=== PATIENT | male | born 1985 | race Caucasian/White ===

== ENCOUNTER 2016-07-05 17:10 | Emergency (ER) | payer OTHER ==
[2016-07-05] MEDS ORDERED: IBUPROFEN 800 MG TAB As Ordered ONE (18:52)
[2016-07-05] MEDS ORDERED: METHOCARBAMOL 500 MG TAB As Ordered ONE (18:52)
--- NOTE | 2016-07-05 19:04 | EDDOCDS ---
Physician Documentation [facility] Name: Obdulio Young Age: 31 yrs Sex: Male : 1985 Arrival Date: 07/05/2016 Time: 17:10 Bed Triage 2 Private MD: TERESA, Disposition: 07/05/16 18:51 Discharged to Home/Self Care. Impression: Strain of muscle, fascia and tendon of abdomen, lower back and pelvis. - Condition is Stable. - Discharge Instructions: Back Pain, Adult, Muscle Strain. - Prescriptions for Ibuprofen 600 mg Oral Tablet - take 1 tablet by ORAL route every 6 hours As needed take with food; 30 tablet. Robaxin 500 mg Oral Tablet - take 2 tablet by ORAL route every 6 hours As needed; 40 tablet. - Work Release Form - 2 day, Medication Reconciliation, Local Pharmacy Hours form. - Follow up: TERESA; When: Call to arrange an appointment; Reason: Recheck today's complaints, Continuance of care. - Problem is an acute exacerbation. - Symptoms are unchanged. Historical: - Allergies: no known allergies; - Home Meds: 1. trazodone 50 mg Oral tab as needed 2. Prozac 60mg Oral tab 1 cap once daily 3. BuSpar Oral 10 mg three times a day 4. acamprosate 333 mg oral TbEC 2 tabs 3 times per day - PMHx: Depression; Anxiety; Alcoholism; - PSHx: none; - Social history: Smoking status: Patient uses tobacco products, current every day smoker. No barriers to communication noted, The patient speaks fluent Slovenian, Speaks appropriately for age. - Family history: Not pertinent. - : The pt / caregiver states he / she is not on anticoagulants. Home medication list is obtained from the patient, [employer] import data. - Exposure Risk Screening:: None identified. Vital Signs: 07/05 17:11 BP 145 / 78; Pulse 86; Resp 18; Temp 97.9(O); Pulse Ox 100% ; Weight 63.5 kg / 139.99 cmb lbs; Height 5 ft. 10 in. (177.80 cm); Pain 6/10; 18:56 BP 125 / 74; Pulse 68; Resp 18; Temp 98.6; Pulse Ox 98% ; Pain 6/10; ttb 17:11 Body Mass Index 20.09 (63.50 kg, 177.80 cm) cmb MDM: 18:47 Methocarbamol 1 grams PO once ordered. mo1 18:47 Ibuprofen 800 mg PO once ordered. mo1 Administered Medications: 18:55 Drug: Methocarbamol 1 grams [methocarbamol 500 mg tablet (2 tabs)] Route: PO; ead 19:02 Follow up: Response: Confirmed pt not driving.; No Adverse Reaction; No significant ttb change. 18:55 Drug: Ibuprofen 800 mg [ibuprofen 800 mg tablet (1 tabs)] Route: PO; ead Signatures: Sarah Boone, RN RN ttb Marcello Isbell PA PA mo1 Judith DenisRN RN ead MTDD
--- NOTE | 2016-07-05 19:04 | EDDOCDS ---
Nurse's Notes [facility] Name: Obdulio Young Age: 31 yrs Sex: Male : 1985 Arrival Date: 07/05/2016 Time: 17:10 Bed Triage 2 Private MD: TERESA, Diagnosis: Strain of muscle, fascia and tendon of abdomen, lower back and pelvis Presentation: 07/05 17:14 Presenting complaint: Patient states: pt c/o lower back pain, onset yesterday. denies ead known injury. reports hx of similar episode. Acute neurological deficits are not present. Mechanism of Injury: No Mechanism of Injury. Adult Sepsis Screening: The patient does not have new or worsening altered mentation. Patient's respiratory rate is less than 22. Systolic blood pressure is greater than 100. Patient has a qSOFA score of 0- Negative Sepsis Screen. Suicide/Homicide risk assessment- the patient denies having any suicidal and/or homicidal ideations and does not present with any other emotional, behavioral or mental health complaints. Status: Patient is not a account services manager or dependent. Transition of care: patient was not received from another setting of care. 17:14 Acuity: SANJAY Level 4 ead 17:14 Method Of Arrival: Walkin/Carried/Asstd ead Triage Assessment: 17:16 General: Appears in no apparent distress, uncomfortable, Behavior is cooperative. Pain: ead Location: left low back and right low back Pain currently is 6 out of 10 on a pain scale. Pain: Pain began 1 day ago. Pain: Quality of pain is described as aching. HIV screening NA for this visit Offered previously. Neurological: Level of Consciousness is awake, alert, Oriented to person, place, time. Respiratory: Airway is patent Respiratory effort is even, unlabored. Derm: Skin is pink, warm & dry. Musculoskeletal: Reports pain in left low back and right low back. Historical: - Allergies: no known allergies; - Home Meds: 1. trazodone 50 mg Oral tab as needed 2. Prozac 60mg Oral tab 1 cap once daily 3. BuSpar Oral 10 mg three times a day 4. acamprosate 333 mg oral TbEC 2 tabs 3 times per day - PMHx: Depression; Anxiety; Alcoholism; - PSHx: none; - Social history: Smoking status: Patient uses tobacco products, current every day smoker. No barriers to communication noted, The patient speaks fluent Tajik, Speaks appropriately for age. - Family history: Not pertinent. - : The pt / caregiver states he / she is not on anticoagulants. Home medication list is obtained from the patient, [employer] import data. - Exposure Risk Screening:: None identified. Screenin:59 Screening information is obtained from the patient. Fall risk: No risks identified. ttb Assistance ADL's: requires no assistance with activities of daily living. Abuse/DV Screen: The patient / caregiver reports he/she is: not in a situation that causes fear, pain or injury. Nutritional screening: No deficits noted. Advance Directives: Currently, there is no health care proxy. home support is adequate. Assessment: 18:59 General: Appears in no apparent distress, well nourished, well groomed, Behavior is ttb appropriate for age, cooperative, pleasant. Pain: Location: lower back. Neurological: Level of Consciousness is awake, alert, Denies weakness numbness. Cardiovascular: Chest pain is denied. Respiratory: No deficits noted. Airway is patent Denies cough, shortness of breath. GI: Denies nausea, vomiting, pain. Derm: Skin is normal. Musculoskeletal: Range of motion intact in all extremities. Reports pain in lower back. Vital Signs: 17:11 BP 145 / 78; Pulse 86; Resp 18; Temp 97.9(O); Pulse Ox 100% ; Weight 63.5 kg; Height 5 cmb ft. 10 in. (177.80 cm); Pain 6/10; 18:56 BP 125 / 74; Pulse 68; Resp 18; Temp 98.6; Pulse Ox 98% ; Pain 6/10; ttb 17:11 Body Mass Index 20.09 (63.50 kg, 177.80 cm) cmb Vitals: 17:11 Log In Time: July 05, 2016 at 17:10. cmb ED Course: 17:10 Patient visited by Amalia Vasquez. cmb 17:10 Patient moved to Waiting cmb 17:13 MOORE is Private Physician. cmb 17:13 Patient moved to Pre RCE cmb 17:15 Triage Initiated ead 18:31 Patient moved to Triage 2 ead 18:32 Marcello Isbell PA is PHCP. mo1 18:32 Liss Prieto MD is Attending Physician. mo1 18:32 Patient moved to TR3 cmb 18:33 Patient moved to Triage 2 ead 18:44 Patient visited by Marcello Isbell PA. mo1 18:51 TERESA is Referral Physician. mo1 18:59 The patient / caregiver is instructed regarding the plan of care and ED course. Patient ttb has correct armband on for positive identification. 18:59 No IV's were initiated during this patient's visit. No procedures done that require ttb assistance. Administered Medications: 18:55 Drug: Methocarbamol 1 grams [methocarbamol 500 mg tablet (2 tabs)] Route: PO; ead 19:02 Follow up: Response: Confirmed pt not driving.; No Adverse Reaction; No significant ttb change. 18:55 Drug: Ibuprofen 800 mg [ibuprofen 800 mg tablet (1 tabs)] Route: PO; ead Order Results: There are currently no results for this order. Outcome: 18:51 Discharge ordered by Provider. mo1 18:59 Discharge Assessment: Patient awake, alert and oriented x 3. No cognitive and/or ttb functional deficits noted. Patient verbalized understanding of disposition instructions. Patient awake and alert. patient administered narcotics - yes. Pt provided with safe discharge. The following High Risk Discharge criteria are identified: None. Discharged to home ambulatory. Condition: good Condition: stable Condition: improved. Discharge instructions given to patient, Instructed on discharge instructions, follow up and referral plans. medication usage, no driving heavy equipment, Rest, Ice, Compression and Elevation. no drinking with medication, Demonstrated understanding of instructions, medications, no d/d with meds Pt was receptive of discharge instructions/ teaching. Prescriptions given X 2. No special radiology studies were completed. Property :Personal belongings accompany Pt. 19:02 Patient left the ED. ttb Signatures: Amalia Vasquez cmb Sarah Boone RN RN ttb Marcello Isbell PA PA mo1 Judith Denis RN RN ead MTDD
--- NOTE | 2016-07-07 20:03 | EDDOCDS ---
Physician Documentation [facility] Name: Obdulio Young Age: 31 yrs Sex: Male : 1985 Arrival Date: 07/05/2016 Time: 17:10 Bed Triage 2 Private MD: TERESA, Disposition: 07/05/16 18:51 Discharged to Home/Self Care. Impression: Strain of muscle, fascia and tendon of abdomen, lower back and pelvis. - Condition is Stable. - Discharge Instructions: Back Pain, Adult, Muscle Strain. - Prescriptions for Ibuprofen 600 mg Oral Tablet - take 1 tablet by ORAL route every 6 hours As needed take with food; 30 tablet. Robaxin 500 mg Oral Tablet - take 2 tablet by ORAL route every 6 hours As needed; 40 tablet. - Work Release Form - 2 day, Medication Reconciliation, Local Pharmacy Hours form. - Follow up: TERESA; When: Call to arrange an appointment; Reason: Recheck today's complaints, Continuance of care. - Problem is an acute exacerbation. - Symptoms are unchanged. Historical: - Allergies: no known allergies; - Home Meds: 1. trazodone 50 mg Oral tab as needed 2. Prozac 60mg Oral tab 1 cap once daily 3. BuSpar Oral 10 mg three times a day 4. acamprosate 333 mg oral TbEC 2 tabs 3 times per day - PMHx: Depression; Anxiety; Alcoholism; - PSHx: none; - Social history: Smoking status: Patient uses tobacco products, current every day smoker. No barriers to communication noted, The patient speaks fluent Irish, Speaks appropriately for age. - Family history: Not pertinent. - : The pt / caregiver states he / she is not on anticoagulants. Home medication list is obtained from the patient, [email or web address] import data. - Exposure Risk Screening:: None identified. Vital Signs: 07/05 17:11 BP 145 / 78; Pulse 86; Resp 18; Temp 97.9(O); Pulse Ox 100% ; Weight 63.5 kg / 139.99 cmb lbs; Height 5 ft. 10 in. (177.80 cm); Pain 6/10; 18:56 BP 125 / 74; Pulse 68; Resp 18; Temp 98.6; Pulse Ox 98% ; Pain 6/10; ttb 17:11 Body Mass Index 20.09 (63.50 kg, 177.80 cm) cmb MDM: 18:47 Methocarbamol 1 grams PO once ordered. mo1 18:47 Ibuprofen 800 mg PO once ordered. mo1 19:12 Financial registration complete. [facility] 19:13 [facility] Payment Agreement was scanned into [employer] and attached to record. [facility] 07/07 08:48 T-Sheet-- Draft Copy was scanned into [employer] and attached to record. gb Administered Medications: 07/05 18:55 Drug: Methocarbamol 1 grams [methocarbamol 500 mg tablet (2 tabs)] Route: PO; ead 19:02 Follow up: Response: Confirmed pt not driving.; No Adverse Reaction; No significant ttb change. 18:55 Drug: Ibuprofen 800 mg [ibuprofen 800 mg tablet (1 tabs)] Route: PO; ead Signatures: Sierra Castillo, Reg Reg gb Blas Carlos Teresa, RN RN ttb Marcello Isbell PA PA mo1 Judith DenisRN RN ead The chart was reviewed and I authenticate all verbal orders and agree with the evaluation and treatment provided.Attachments: 19:13 [facility] Payment Agreement [facility] 07/07 08:48 T-Sheet-- Draft Copy gb Chart Complete MTDD
--- NOTE | 2016-07-07 20:03 | EDDOCDS ---
Nurse's Notes [facility] Name: Obdulio Young Age: 31 yrs Sex: Male : 1985 Arrival Date: 07/05/2016 Time: 17:10 Bed Triage 2 Private MD: TERESA, Diagnosis: Strain of muscle, fascia and tendon of abdomen, lower back and pelvis Presentation: 07/05 17:14 Presenting complaint: Patient states: pt c/o lower back pain, onset yesterday. denies ead known injury. reports hx of similar episode. Acute neurological deficits are not present. Mechanism of Injury: No Mechanism of Injury. Adult Sepsis Screening: The patient does not have new or worsening altered mentation. Patient's respiratory rate is less than 22. Systolic blood pressure is greater than 100. Patient has a qSOFA score of 0- Negative Sepsis Screen. Suicide/Homicide risk assessment- the patient denies having any suicidal and/or homicidal ideations and does not present with any other emotional, behavioral or mental health complaints. Status: Patient is not a business services manager or dependent. Transition of care: patient was not received from another setting of care. 17:14 Acuity: SANJAY Level 4 ead 17:14 Method Of Arrival: Walkin/Carried/Asstd ead Triage Assessment: 17:16 General: Appears in no apparent distress, uncomfortable, Behavior is cooperative. Pain: ead Location: left low back and right low back Pain currently is 6 out of 10 on a pain scale. Pain: Pain began 1 day ago. Pain: Quality of pain is described as aching. HIV screening NA for this visit Offered previously. Neurological: Level of Consciousness is awake, alert, Oriented to person, place, time. Respiratory: Airway is patent Respiratory effort is even, unlabored. Derm: Skin is pink, warm & dry. Musculoskeletal: Reports pain in left low back and right low back. Historical: - Allergies: no known allergies; - Home Meds: 1. trazodone 50 mg Oral tab as needed 2. Prozac 60mg Oral tab 1 cap once daily 3. BuSpar Oral 10 mg three times a day 4. acamprosate 333 mg oral TbEC 2 tabs 3 times per day - PMHx: Depression; Anxiety; Alcoholism; - PSHx: none; - Social history: Smoking status: Patient uses tobacco products, current every day smoker. No barriers to communication noted, The patient speaks fluent Macedonian, Speaks appropriately for age. - Family history: Not pertinent. - : The pt / caregiver states he / she is not on anticoagulants. Home medication list is obtained from the patient, [employer] import data. - Exposure Risk Screening:: None identified. Screenin:59 Screening information is obtained from the patient. Fall risk: No risks identified. ttb Assistance ADL's: requires no assistance with activities of daily living. Abuse/DV Screen: The patient / caregiver reports he/she is: not in a situation that causes fear, pain or injury. Nutritional screening: No deficits noted. Advance Directives: Currently, there is no health care proxy. home support is adequate. Assessment: 18:59 General: Appears in no apparent distress, well nourished, well groomed, Behavior is ttb appropriate for age, cooperative, pleasant. Pain: Location: lower back. Neurological: Level of Consciousness is awake, alert, Denies weakness numbness. Cardiovascular: Chest pain is denied. Respiratory: No deficits noted. Airway is patent Denies cough, shortness of breath. GI: Denies nausea, vomiting, pain. Derm: Skin is normal. Musculoskeletal: Range of motion intact in all extremities. Reports pain in lower back. Vital Signs: 17:11 BP 145 / 78; Pulse 86; Resp 18; Temp 97.9(O); Pulse Ox 100% ; Weight 63.5 kg; Height 5 cmb ft. 10 in. (177.80 cm); Pain 6/10; 18:56 BP 125 / 74; Pulse 68; Resp 18; Temp 98.6; Pulse Ox 98% ; Pain 6/10; ttb 17:11 Body Mass Index 20.09 (63.50 kg, 177.80 cm) cmb Vitals: 17:11 Log In Time: July 05, 2016 at 17:10. cmb ED Course: 17:10 Patient visited by Amalia Vasquez. cmb 17:10 Patient moved to Waiting cmb 17:13 MOORE is Private Physician. cmb 17:13 Patient moved to Pre RCE cmb 17:15 Triage Initiated ead 18:31 Patient moved to Triage 2 ead 18:32 Marcello Isbell PA is PHCP. mo1 18:32 Liss Prieto MD is Attending Physician. mo1 18:32 Patient moved to TR3 cmb 18:33 Patient moved to Triage 2 ead 18:44 Patient visited by Marcello Isbell PA. mo1 18:51 TERESA is Referral Physician. mo1 18:59 The patient / caregiver is instructed regarding the plan of care and ED course. Patient ttb has correct armband on for positive identification. 18:59 No IV's were initiated during this patient's visit. No procedures done that require ttb assistance. 19:13 [facility] Payment Agreement was scanned into [employer] and attached to record. [facility] 07/07 08:48 T-Sheet-- Draft Copy was scanned into [employer] and attached to record. gb Administered Medications: 07/05 18:55 Drug: Methocarbamol 1 grams [methocarbamol 500 mg tablet (2 tabs)] Route: PO; ead 19:02 Follow up: Response: Confirmed pt not driving.; No Adverse Reaction; No significant ttb change. 18:55 Drug: Ibuprofen 800 mg [ibuprofen 800 mg tablet (1 tabs)] Route: PO; ead Order Results: There are currently no results for this order. Outcome: 18:51 Discharge ordered by Provider. mo1 18:59 Discharge Assessment: Patient awake, alert and oriented x 3. No cognitive and/or ttb functional deficits noted. Patient verbalized understanding of disposition instructions. Patient awake and alert. patient administered narcotics - yes. Pt provided with safe discharge. The following High Risk Discharge criteria are identified: None. Discharged to home ambulatory. Condition: good Condition: stable Condition: improved. Discharge instructions given to patient, Instructed on discharge instructions, follow up and referral plans. medication usage, no driving heavy equipment, Rest, Ice, Compression and Elevation. no drinking with medication, Demonstrated understanding of instructions, medications, no d/d with meds Pt was receptive of discharge instructions/ teaching. Prescriptions given X 2. No special radiology studies were completed. Property :Personal belongings accompany Pt. 19:02 Patient left the ED. ttb Signatures: Sierra Castillo, Lawrence Reg Blsa [place] cmb Sarah Boone RN RN ttb Marcello Isbell PA PA mo1 Judith Denis RN RN ead Chart Complete MTDD
--- NOTE | 2016-07-07 20:03 | EDDOCDS ---
Physician Documentation [facility] Name: Obdulio Young Age: 31 yrs Sex: Male : 1985 Arrival Date: 07/05/2016 Time: 17:10 Bed Triage 2 Private MD: TERESA, Disposition: 07/05/16 18:51 Discharged to Home/Self Care. Impression: Strain of muscle, fascia and tendon of abdomen, lower back and pelvis. - Condition is Stable. - Discharge Instructions: Back Pain, Adult, Muscle Strain. - Prescriptions for Ibuprofen 600 mg Oral Tablet - take 1 tablet by ORAL route every 6 hours As needed take with food; 30 tablet. Robaxin 500 mg Oral Tablet - take 2 tablet by ORAL route every 6 hours As needed; 40 tablet. - Work Release Form - 2 day, Medication Reconciliation, Local Pharmacy Hours form. - Follow up: TERESA; When: Call to arrange an appointment; Reason: Recheck today's complaints, Continuance of care. - Problem is an acute exacerbation. - Symptoms are unchanged. Historical: - Allergies: no known allergies; - Home Meds: 1. trazodone 50 mg Oral tab as needed 2. Prozac 60mg Oral tab 1 cap once daily 3. BuSpar Oral 10 mg three times a day 4. acamprosate 333 mg oral TbEC 2 tabs 3 times per day - PMHx: Depression; Anxiety; Alcoholism; - PSHx: none; - Social history: Smoking status: Patient uses tobacco products, current every day smoker. No barriers to communication noted, The patient speaks fluent Vietnamese, Speaks appropriately for age. - Family history: Not pertinent. - : The pt / caregiver states he / she is not on anticoagulants. Home medication list is obtained from the patient, [employer] import data. - Exposure Risk Screening:: None identified. Vital Signs: 07/05 17:11 BP 145 / 78; Pulse 86; Resp 18; Temp 97.9(O); Pulse Ox 100% ; Weight 63.5 kg / 139.99 cmb lbs; Height 5 ft. 10 in. (177.80 cm); Pain 6/10; 18:56 BP 125 / 74; Pulse 68; Resp 18; Temp 98.6; Pulse Ox 98% ; Pain 6/10; ttb 17:11 Body Mass Index 20.09 (63.50 kg, 177.80 cm) cmb MDM: 18:47 Methocarbamol 1 grams PO once ordered. mo1 18:47 Ibuprofen 800 mg PO once ordered. mo1 19:12 Financial registration complete. [facility] 19:13 [facility] Payment Agreement was scanned into [employer] and attached to record. [facility] 07/07 08:48 T-Sheet-- Draft Copy was scanned into [employer] and attached to record. gb Administered Medications: 07/05 18:55 Drug: Methocarbamol 1 grams [methocarbamol 500 mg tablet (2 tabs)] Route: PO; ead 19:02 Follow up: Response: Confirmed pt not driving.; No Adverse Reaction; No significant ttb change. 18:55 Drug: Ibuprofen 800 mg [ibuprofen 800 mg tablet (1 tabs)] Route: PO; ead Signatures: Sierra Castillo, Reg Reg gb Blas Carlos Teresa, RN RN ttb Marcello Isbell PA PA mo1 Judith DenisRN RN ead The chart was reviewed and I authenticate all verbal orders and agree with the evaluation and treatment provided.Attachments: 19:13 [facility] Payment Agreement [facility] 07/07 08:48 T-Sheet-- Draft Copy gb Chart Complete MTDD
== END 2016-07-05 19:02 | disposition home or self-care (01) ==
LOC: M ED 17:10
DX: S29.012A Strain of muscle and tendon of back wall of thorax, initial encounter (principal); X58.XXXA Exposure to other specified factors, initial encounter; Y92.89 Other specified places as the place of occurrence of the external cause; Y93.89 Activity, other specified; Y99.8 Other external cause status; F32.9 Major depressive disorder, single episode, unspecified; F41.9 Anxiety disorder, unspecified; F10.20 Alcohol dependence, uncomplicated; F17.210 Nicotine dependence, cigarettes, uncomplicated; Z79.899 Other long term (current) drug therapy

== ENCOUNTER 2016-07-12 13:56 | Emergency (ER) | payer OTHER ==
--- NOTE | 2016-07-12 15:23 | EDDOCDS ---
Nurse's Notes [facility] Name: Obdulio Young Age: 31 yrs Sex: Male : 1985 Arrival Date: 07/12/2016 Time: 13:56 Bed [facility] Private MD: Rodolfo Cox D Diagnosis: Low back pain;Alcohol abuse Presentation: 07/12 14:15 Presenting complaint: Patient states: "I went to see my therapist and I went outside to mb9 smoke and he said I was intoxicated and that I was gonna fall down so he called the ambulance". pt reports hx of chronic alcoholism and that he has been drinking non stop since last Sunday. pt denies SI/HI. Mental Health Triage Level: Level 1- Pt displays no suicidal or homicidal ideations and does not appear to be a danger to self or others. Adult Sepsis Screening: The patient does not have new or worsening altered mentation. Patient's respiratory rate is less than 22. Systolic blood pressure is greater than 100. Patient has a qSOFA score of 0- Negative Sepsis Screen. Suicide/Homicide risk assessment- the patient denies having any suicidal and/or homicidal ideations and does not present with any other emotional, behavioral or mental health complaints. Status: Patient is not a food service clerk or dependent. Transition of care: patient was not received from another setting of care. 14:15 Acuity: SANJAY Level 3 mb9 14:15 Method Of Arrival: Ambulance mb9 Triage Assessment: 14:19 General: Appears pt appears to be unsteady on his feet and slurring his speech. pt mb9 repeatedly tries to leave. pt easily redirected. . Behavior is inappropriate for age, Smells of alcohol. Pain: Location: low back area Pain currently is 5 out of 10 on a pain scale. HIV screening NA for this visit Offered previously. Neurological: Level of Consciousness is awake, alert, Oriented to person, place, time. Respiratory: Airway is patent Respiratory effort is even, unlabored. Historical: - Allergies: No known drug Allergies; - Home Meds: 1. acamprosate 333 mg oral TbEC 2 tabs 3 times per day (Last dose: 07/05/2016) 2. BuSpar Oral 10 mg three times a day (Last dose: 07/05/2016) 3. Prozac 60mg Oral tab 1 cap once daily (Last dose: 07/05/2016) - PMHx: Alcoholism; Anxiety; Depression; - PSHx: none; - Social history: Smoking status: Patient uses tobacco products, heavy tobacco smoker. Patient uses alcohol on a daily basis. No barriers to communication noted, The patient speaks fluent Cameroonian. - Family history: No immediate family members are acutely ill. - : The pt / caregiver states he / she is not on anticoagulants. Home medication list is obtained from the patient. - Exposure Risk Screening:: None identified. Screenin:30 Screening information is obtained from the patient. Fall risk: At risk due to apparent mb9 chemical impairment, The following interventions are performed due to a positive Fall Risk Screen: Fall Risk is added to Special Handling on the patient Summary Screen. A Fall Risk Bracelet was applied to the patient. Side Rails are placed in the up position. A Call Bourne is given with instruction to call for help when getting out of bed. bed rails up x2.. Assistance ADL's: requires no assistance with activities of daily living. Abuse/DV Screen: The patient / caregiver reports he/she is: not in a situation that causes fear, pain or injury. Nutritional screening: No deficits noted. Advance Directives: There is no active DNR order. home support is adequate. Social Work Consult: 15:06 Cab voucher provided. Patient is going to safe destination. LWBS/AMA AMA: Patient is ms refusing further stabilizing treatment at [facility], although offered treatment regardless of method of payment or ability to pay. Patient is aware that this action is being undertaken against the advice of the medical staff at [facility]. Pt. has capacity to understand the potential consequences of this choice. pt did notify ED staff. Patient / guardian did sign Refusal of Services form. refused services. Vital Signs: 14:19 BP 128 / 98; Pulse 80; Resp 17; Temp 97.2(T); Pulse Ox 100% ; Weight 63.5 kg; Height 5 mb9 ft. 9 in. (175.26 cm); Pain 5/10; 14:19 Body Mass Index 20.67 (63.50 kg, 175.26 cm) mb9 Vitals: 14:19 Log In Time N/A - ambulance arrival. 9 ED Course: 13:58 Patient visited by Liss Meeks. sew 13:58 Rodolfo Cox is Private Physician. sew 13:58 Patient moved to Waiting sew 13:58 Patient moved to [facility] sew 14:06 Patient visited by Liss Meeks. sew 14:06 Psych Safety Check: Location: Psych Room. Visual Assessment: Cooperative. sew 14:17 Triage Initiated mb9 14:17 Psych Safety Check: Location: Psych Room. Visual Assessment: Cooperative. sew 14:18 Patient visited by Liss Meeks. sew 14:30 The patient / caregiver is instructed regarding the plan of care and ED course. mb9 14:30 No IV's were initiated during this patient's visit. No procedures done that require mb9 assistance. 14:46 Adán Gayle MD is Attending Physician. br1 15:03 Patient visited by Adán Gayle MD. br1 15:03 Rodolfo Cox is Referral Physician. br1 Order Results: There are currently no results for this order. Outcome: 15:03 Patient left against medical advice. br1 15:22 The patient is leaving AMA: AMA form signed, Notification of AMA status is made to the mb9 charge nurse, the oncology social work, the ED attending physician. 15:22 Patient left the ED. mb9 Signatures: Emily Robles, PSA PSA ms Adán Gayle MD MD br1 Liss Meeks Michael,RN RN mb9 MTDD
--- NOTE | 2016-07-12 15:23 | EDDOCDS ---
Physician Documentation [facility] Name: Obdulio Young Age: 31 yrs Sex: Male : 1985 Arrival Date: 07/12/2016 Time: 13:56 Bed [facility] Private MD: Rodolfo Cox D Disposition: 07/12/16 15:03 Patient has left against medical advice. Impression: Low back pain, Alcohol abuse. - Patients states they are going to Home/Self Care. - Condition is Stable. - Discharge Instructions: Alcohol Intoxication, Back Pain, Adult. Medication Reconciliation, Local Pharmacy Hours form. Follow up: Rodolfo Cox; When: 2 - 3 days; Reason: Recheck today's complaints. - Problem is new. - Symptoms are unchanged. - Notes: You were seen in the ED for back pain and alcohol abuse. Although recommended to stay for full evaluation with bloodwork and imaging you have refused and decided to leave against our advice. Please seek care with your primary doctor as soon as possible for ongoing evaluation and return to the ED at any time if your symptoms worsen or you change your mind. Historical: - Allergies: No known drug Allergies; - Home Meds: 1. acamprosate 333 mg oral TbEC 2 tabs 3 times per day (Last dose: 07/05/2016) 2. BuSpar Oral 10 mg three times a day (Last dose: 07/05/2016) 3. Prozac 60mg Oral tab 1 cap once daily (Last dose: 07/05/2016) - PMHx: Alcoholism; Anxiety; Depression; - PSHx: none; - Social history: Smoking status: Patient uses tobacco products, heavy tobacco smoker. Patient uses alcohol on a daily basis. No barriers to communication noted, The patient speaks fluent Arabic. - Family history: No immediate family members are acutely ill. - : The pt / caregiver states he / she is not on anticoagulants. Home medication list is obtained from the patient. - Exposure Risk Screening:: None identified. Vital Signs: 07/12 14:19 BP 128 / 98; Pulse 80; Resp 17; Temp 97.2(T); Pulse Ox 100% ; Weight 63.5 kg / 139.99 mb9 lbs; Height 5 ft. 9 in. (175.26 cm); Pain 5/10; 14:19 Body Mass Index 20.67 (63.50 kg, 175.26 cm) mb9 MDM: 15:03 Consult PFS/PSA/Crop Quantitative Geneticist ordered. br1 15:05 Consult PFS/PSA/Crop Quantitative Geneticist complete. ms 15:16 Financial registration complete. mm15 Signatures: Emily Robles, PSA PSA ms Adán Gayle MD MD br1 Samson Garcia mm15 Marcello Strickland,RN RN mb9 MTDD
--- NOTE | 2016-07-14 16:23 | EDDOCDS ---
Physician Documentation [facility] Name: Obdulio Young Age: 31 yrs Sex: Male : 1985 Arrival Date: 07/12/2016 Time: 13:56 Bed [facility] Private MD: Rodolfo Cox D Disposition: 07/12/16 15:03 Patient has left against medical advice. Impression: Low back pain, Alcohol abuse. - Patients states they are going to Home/Self Care. - Condition is Stable. - Discharge Instructions: Alcohol Intoxication, Back Pain, Adult. Medication Reconciliation, Local Pharmacy Hours form. Follow up: Rodolfo Cox; When: 2 - 3 days; Reason: Recheck today's complaints. - Problem is new. - Symptoms are unchanged. - Notes: You were seen in the ED for back pain and alcohol abuse. Although recommended to stay for full evaluation with bloodwork and imaging you have refused and decided to leave against our advice. Please seek care with your primary doctor as soon as possible for ongoing evaluation and return to the ED at any time if your symptoms worsen or you change your mind. Historical: - Allergies: No known drug Allergies; - Home Meds: 1. acamprosate 333 mg oral TbEC 2 tabs 3 times per day (Last dose: 07/05/2016) 2. BuSpar Oral 10 mg three times a day (Last dose: 07/05/2016) 3. Prozac 60mg Oral tab 1 cap once daily (Last dose: 07/05/2016) - PMHx: Alcoholism; Anxiety; Depression; - PSHx: none; - Social history: Smoking status: Patient uses tobacco products, heavy tobacco smoker. Patient uses alcohol on a daily basis. No barriers to communication noted, The patient speaks fluent Faroese. - Family history: No immediate family members are acutely ill. - : The pt / caregiver states he / she is not on anticoagulants. Home medication list is obtained from the patient. - Exposure Risk Screening:: None identified. Vital Signs: 07/12 14:19 BP 128 / 98; Pulse 80; Resp 17; Temp 97.2(T); Pulse Ox 100% ; Weight 63.5 kg / 139.99 mb9 lbs; Height 5 ft. 9 in. (175.26 cm); Pain 5/10; 14:19 Body Mass Index 20.67 (63.50 kg, 175.26 cm) mb9 MDM: 15:03 Consult PFS/PSA/Hospice/Home Health Aide ordered. br1 15:05 Consult PFS/PSA/Hospice/Home Health Aide complete. ms 15:16 Financial registration complete. mm15 07/13 07:54 [facility] Payment Agreement was scanned into [employer] and attached to record. lg 11:45 Refusal of Services was scanned into [employer] and attached to record. gb 11:45 T-Sheet-- Draft Copy was scanned into [employer] and attached to record. gb Signatures: Emily Robles, PSA PSA ms Anna, Sierra, Reg Reg gb Maisha Lane, Reg Reg lg Adán Gayle MD MD br1 Samson Garcia mm15 Marcello StricklandRN RN mb9 The chart was reviewed and I authenticate all verbal orders and agree with the evaluation and treatment provided.Attachments: 07:54 [facility] Payment Agreement lg 11:45 T-Sheet-- Draft Copy gb Chart Complete MTDD
--- NOTE | 2016-07-14 16:23 | EDDOCDS ---
Nurse's Notes [facility] Name: Obdulio Young Age: 31 yrs Sex: Male : 1985 Arrival Date: 07/12/2016 Time: 13:56 Bed [facility] Private MD: Rodolfo Cox D Diagnosis: Low back pain;Alcohol abuse Presentation: 07/12 14:15 Presenting complaint: Patient states: "I went to see my therapist and I went outside to mb9 smoke and he said I was intoxicated and that I was gonna fall down so he called the ambulance". pt reports hx of chronic alcoholism and that he has been drinking non stop since last Sunday. pt denies SI/HI. Mental Health Triage Level: Level 1- Pt displays no suicidal or homicidal ideations and does not appear to be a danger to self or others. Adult Sepsis Screening: The patient does not have new or worsening altered mentation. Patient's respiratory rate is less than 22. Systolic blood pressure is greater than 100. Patient has a qSOFA score of 0- Negative Sepsis Screen. Suicide/Homicide risk assessment- the patient denies having any suicidal and/or homicidal ideations and does not present with any other emotional, behavioral or mental health complaints. Status: Patient is not a service control operator or dependent. Transition of care: patient was not received from another setting of care. 14:15 Acuity: SANJAY Level 3 mb9 14:15 Method Of Arrival: Ambulance mb9 Triage Assessment: 14:19 General: Appears pt appears to be unsteady on his feet and slurring his speech. pt mb9 repeatedly tries to leave. pt easily redirected. . Behavior is inappropriate for age, Smells of alcohol. Pain: Location: low back area Pain currently is 5 out of 10 on a pain scale. HIV screening NA for this visit Offered previously. Neurological: Level of Consciousness is awake, alert, Oriented to person, place, time. Respiratory: Airway is patent Respiratory effort is even, unlabored. Historical: - Allergies: No known drug Allergies; - Home Meds: 1. acamprosate 333 mg oral TbEC 2 tabs 3 times per day (Last dose: 07/05/2016) 2. BuSpar Oral 10 mg three times a day (Last dose: 07/05/2016) 3. Prozac 60mg Oral tab 1 cap once daily (Last dose: 07/05/2016) - PMHx: Alcoholism; Anxiety; Depression; - PSHx: none; - Social history: Smoking status: Patient uses tobacco products, heavy tobacco smoker. Patient uses alcohol on a daily basis. No barriers to communication noted, The patient speaks fluent Egyptian. - Family history: No immediate family members are acutely ill. - : The pt / caregiver states he / she is not on anticoagulants. Home medication list is obtained from the patient. - Exposure Risk Screening:: None identified. Screenin:30 Screening information is obtained from the patient. Fall risk: At risk due to apparent mb9 chemical impairment, The following interventions are performed due to a positive Fall Risk Screen: Fall Risk is added to Special Handling on the patient Summary Screen. A Fall Risk Bracelet was applied to the patient. Side Rails are placed in the up position. A Call Bourne is given with instruction to call for help when getting out of bed. bed rails up x2.. Assistance ADL's: requires no assistance with activities of daily living. Abuse/DV Screen: The patient / caregiver reports he/she is: not in a situation that causes fear, pain or injury. Nutritional screening: No deficits noted. Advance Directives: There is no active DNR order. home support is adequate. Social Work Consult: 15:06 Cab voucher provided. Patient is going to safe destination. LWBS/AMA AMA: Patient is ms refusing further stabilizing treatment at [facility], although offered treatment regardless of method of payment or ability to pay. Patient is aware that this action is being undertaken against the advice of the medical staff at [facility]. Pt. has capacity to understand the potential consequences of this choice. pt did notify ED staff. Patient / guardian did sign Refusal of Services form. refused services. Vital Signs: 14:19 BP 128 / 98; Pulse 80; Resp 17; Temp 97.2(T); Pulse Ox 100% ; Weight 63.5 kg; Height 5 mb9 ft. 9 in. (175.26 cm); Pain 5/10; 14:19 Body Mass Index 20.67 (63.50 kg, 175.26 cm) mb9 Vitals: 14:19 Log In Time N/A - ambulance arrival. 9 ED Course: 13:58 Patient visited by Liss Meeks. sew 13:58 Rodolfo Cox is Private Physician. sew 13:58 Patient moved to Waiting sew 13:58 Patient moved to [facility] sew 14:06 Patient visited by Liss Meeks. sew 14:06 Psych Safety Check: Location: Psych Room. Visual Assessment: Cooperative. sew 14:17 Triage Initiated mb9 14:17 Psych Safety Check: Location: Psych Room. Visual Assessment: Cooperative. sew 14:18 Patient visited by Liss Meeks. sew 14:30 The patient / caregiver is instructed regarding the plan of care and ED course. mb9 14:30 No IV's were initiated during this patient's visit. No procedures done that require mb9 assistance. 14:46 Adán Gayle MD is Attending Physician. br1 15:03 Patient visited by Adán Gayle MD. br1 15:03 Rodolfo Cox is Referral Physician. br1 07/13 07:54 [facility] Payment Agreement was scanned into [employer] and attached to record. lg 11:45 Refusal of Services was scanned into [employer] and attached to record. gb 11:45 T-Sheet-- Draft Copy was scanned into [employer] and attached to record. gb Attachments: 11:45 Refusal of Services gb Order Results: There are currently no results for this order. Outcome: 07/12 15:03 Patient left against medical advice. br1 15:22 The patient is leaving AMA: AMA form signed, Notification of AMA status is made to the mb9 charge nurse, the social science teacher, the ED attending physician. 15:22 Patient left the ED. mb9 Signatures: Emily Robles, PSA PSA ms Sierra Castillo, Reg Reg gb Maisha Lane, Reg Reg lg Adán Gayle MD MD br1 Liss Meeks Michael,RN RN mb9 Chart Complete MTDD
--- NOTE | 2016-07-14 16:23 | EDDOCDS ---
Physician Documentation [facility] Name: Obdulio Young Age: 31 yrs Sex: Male : 1985 Arrival Date: 07/12/2016 Time: 13:56 Bed [facility] Private MD: Rodolfo Cox D Disposition: 07/12/16 15:03 Patient has left against medical advice. Impression: Low back pain, Alcohol abuse. - Patients states they are going to Home/Self Care. - Condition is Stable. - Discharge Instructions: Alcohol Intoxication, Back Pain, Adult. Medication Reconciliation, Local Pharmacy Hours form. Follow up: Rodolfo Cox; When: 2 - 3 days; Reason: Recheck today's complaints. - Problem is new. - Symptoms are unchanged. - Notes: You were seen in the ED for back pain and alcohol abuse. Although recommended to stay for full evaluation with bloodwork and imaging you have refused and decided to leave against our advice. Please seek care with your primary doctor as soon as possible for ongoing evaluation and return to the ED at any time if your symptoms worsen or you change your mind. Historical: - Allergies: No known drug Allergies; - Home Meds: 1. acamprosate 333 mg oral TbEC 2 tabs 3 times per day (Last dose: 07/05/2016) 2. BuSpar Oral 10 mg three times a day (Last dose: 07/05/2016) 3. Prozac 60mg Oral tab 1 cap once daily (Last dose: 07/05/2016) - PMHx: Alcoholism; Anxiety; Depression; - PSHx: none; - Social history: Smoking status: Patient uses tobacco products, heavy tobacco smoker. Patient uses alcohol on a daily basis. No barriers to communication noted, The patient speaks fluent Uzbek. - Family history: No immediate family members are acutely ill. - : The pt / caregiver states he / she is not on anticoagulants. Home medication list is obtained from the patient. - Exposure Risk Screening:: None identified. Vital Signs: 07/12 14:19 BP 128 / 98; Pulse 80; Resp 17; Temp 97.2(T); Pulse Ox 100% ; Weight 63.5 kg / 139.99 mb9 lbs; Height 5 ft. 9 in. (175.26 cm); Pain 5/10; 14:19 Body Mass Index 20.67 (63.50 kg, 175.26 cm) mb9 MDM: 15:03 Consult PFS/PSA/Security System Administrator ordered. br1 15:05 Consult PFS/PSA/Security System Administrator complete. ms 15:16 Financial registration complete. mm15 07/13 07:54 [facility] Payment Agreement was scanned into [employer] and attached to record. lg 11:45 Refusal of Services was scanned into [employer] and attached to record. gb 11:45 T-Sheet-- Draft Copy was scanned into [employer] and attached to record. gb Signatures: Emily Robles, PSA PSA ms Anna, Sierra, Reg Reg gb Maisha Lane, Reg Reg lg Adán Gayle MD MD br1 Samson Garcia mm15 Marcello StricklandRN RN mb9 The chart was reviewed and I authenticate all verbal orders and agree with the evaluation and treatment provided.Attachments: 07:54 [facility] Payment Agreement lg 11:45 T-Sheet-- Draft Copy gb Chart Complete MTDD
== END 2016-07-12 15:06 | disposition left against medical advice (07) ==
LOC: M ED 13:56
DX: M54.5 Low back pain (principal); F10.10 Alcohol abuse, uncomplicated; F41.9 Anxiety disorder, unspecified; F32.9 Major depressive disorder, single episode, unspecified; Z72.0 Tobacco use; Z79.899 Other long term (current) drug therapy

== ENCOUNTER 2016-07-17 10:00 | Outpatient (RCR) | payer OTHER | END 2016-08-01 | disposition home or self-care (01) | LOC: M OUTALCOH 10:00 | PROVIDERS: ATTEND Psychiatry & Neurology Psychiatry | DX: F10.20 Alcohol dependence, uncomplicated (principal); F18.20 Inhalant dependence, uncomplicated; F12.20 Cannabis dependence, uncomplicated; F17.200 Nicotine dependence, unspecified, uncomplicated ==

== ENCOUNTER → 2016-08-29 | Outpatient (RCR) | payer OTHER | LOC: M OUTALCOH 08-14 11:39 | PROVIDERS: ATTEND Psychiatry & Neurology Psychiatry | DX: F18.20 Inhalant dependence, uncomplicated (principal); F10.20 Alcohol dependence, uncomplicated; F12.20 Cannabis dependence, uncomplicated; F17.200 Nicotine dependence, unspecified, uncomplicated ==

== ENCOUNTER → 2017-03-23 | Outpatient (CLI) | payer OTHER ==
--- NOTE | 2017-03-23 12:07 | REP ---
Lumbar spine MRI study without contrast: History: Pain. Comparison lumbar spine radiographs are from January 07, 2016. Technique: Sagittal and axial T1 and T2-weighted scans are acquired in the usual fashion with and without fat saturation. Sequences include spin echo, turbo spin-echo, and STIR imaging sequences. MRI findings: Lumbar vertebral body heights are preserved. Alignment is normal. Cortical and medullary bone signal intensity are normal. Conus medullaris is normal in position and appearance at the L1 level. There is a hemangioma in the L3 vertebral body. There is degenerative disc narrowing and decreased signal intensity at the L5-S1 disc level. Other disc spaces are preserved. At L5-S1, axial and sagittal images demonstrate a large disc protrusion with some caudal extension producing severe thecal sac compression. This large disc protrusion measures 10 mm in anteroposterior dimension by approximately 15 mm right to left by 14 mm cranial to caudal. Sagittal images suggest the possibility of a free fragment although it is not displaced from the main protrusion. There is mild right-sided neural foraminal narrowing due to disc bulging and osteophyte formation. Bilateral facet hypertrophy is noted at L5-S1. At L4-5, there is minimal diffuse disc bulging. No other abnormality. At L3-4, L2-3, and L1-2, imaging shows no significant abnormality. Impression: Large disc herniation at L5-S1 with severe thecal sac compression. Possible free fragment not displaced. Signed by Horace Blevins MD 03/23/2017 03:20 P
== END ==
LOC: M RAD 10:19
PROVIDERS: ATTEND Family Medicine Addiction Medicine
DX: M54.5 Low back pain (principal)

== ENCOUNTER → 2017-04-18 | Outpatient (CLI) | payer OTHER ==
--- NOTE | 2017-05-16 02:30 | ECWPNPC ---
PATIENT NAME: MARTIR DUNCAN : 1985 GENDER: MALE VISIT DATE: 04/18/2017 DISCHARGE DATE: 04/18/17 1445 VISIT LOCKED DATE TIME: PHYSICIAN: PRAVEEN HERRERA RESOURCE: PRAVEEN HERRERA REASON FOR APPOINTMENT 1. LOW BACK PAIN HISTORY OF PRESENT ILLNESS NEW PATIENT CONSULT: 32 Y/O MALE REFERRED BY DR. MOORE,[facility] FOR LOW BACK PAIN AND LEFT LATERAL THIGH PAIN.STATES THIS BEGAN IN AUGUST 2015.HE WOKE UP AND BEGAN TO HAVE SEVERE LOW BACK PAIN.PAIN IS DESCRIBED INTERMITTENT ,SHARP AND SHOOTING PAIN LEFT LOW BACK WITH RADIATION INTO LEFT LATERAL THIGH.RATING PAIN VAS 3/10.PAIN IS AGGREVATED BY BENDING FORWARD,STRAINING WITH BOWEL MOVEMENT OR SNEEZING.CURRENTLY TAKING GABAPENTIN 300MG BID BUT THIS IS FOR ANXIETY.DENIES BOWEL OR BLADDER INCONTINENCE.NO RECENT FEVER ,ILLNESS OR SUDDEN WEIGHT LOSS.MRI IMAGING L/S SPINE IS SHOWING LARGE L5/S1 DISC HERNIATION WITH SEVERE INPINGMENT OF THECAL SAC. WHEN DID YOUR PAIN FIRST START? . BRIEFLY DESCRIBE HOW YOUR PAIN STARTED? . HOW DOES YOUR PAIN CHANGE WITH TIME? . DOES YOUR PAIN AWAKEN YOU FROM SLEEP? . HOW MANY HOURS OF SLEEP DO YOU NORMALLY GET? . ANY DIAGNOSTIC TESTING? . FACILITY WHERE TESTS WERE DONE? ____. PAIN TREATMENT TREATMENT YES CANCER HAVE YOU EVER HAD ANY TYPE OF CANCER?NO NO. PAIN SCREENING: PATIENT HAS A COMPLAINT OF ACUTE OR CHRONIC PAIN :YES FALL RISK SCREENING: SCREENING :NO FALLS IN THE PAST YEAR EPSTEIN INVENTORY: QUESTIONNAIRE ASSESSEDTBD SCORE VALUE CALCULATED TBD CURRENT MEDICATIONS TAKING PROZAC 40 MG CAPSULE 1 CAPSULE ORALLY ONCE A DAY TAKING GABAPENTIN 300 MG CAPSULE 1 CAPSULE ORALLY TWO TIMES A DAY TAKING ACAMPROSATE CALCIUM 333 MG TABLET DELAYED RELEASE 2 TABLETS ORALLY THREE TIMES A DAY TAKING HYDROXYZINE HCL 50 MG TABLET 1 TABLET NEEDED ORALLY 3 TIMES A DAY NEEDED MEDICATION LIST REVIEWED AND RECONCILED WITH THE PATIENT PAST MEDICAL HISTORY ASTHMA ANXIETY DISORDER/ DEPRESSION ALCOHOLISM BACK PAIN ALLERGIES N.K.D.A. SURGICAL HISTORY DENIES PAST SURGICAL HISTORY FAMILY HISTORY FATHER: , DIAGNOSED WITH HEART DISEASE MOTHER: ALIVE 1 BROTHER(S) , 1 SISTER(S) . SOCIAL HISTORY GENERAL: TOBACCO USE ARE YOU A:CURRENT SMOKER ARE YOU INTERESTED IN QUITTING?NOT READY TO QUIT COUNSELED THE PATIENT ON SMOKING EFFECTS, EDUCATION [id number]/18/2017 HOW MANY CIGARETTES A DAY DO YOU SMOKE?11-20 PATIENT COUNSELED ON THE DANGERS OF TOBACCO USE AND URGED TO QUIT:04/18/2017 ALCOHOL SCREENING [id number] INTERPRETATIONPOSITIVE RECREATIONAL DRUG USE DRUG USE?YES HOW OFTEN AND HOW MUCH? "SMOKES WEED ABOUT ONCE A MONTH" JUDAISM [id number] NONE LANGUAGE LANGUAGES SPOKEN:SINGAPOREAN LEARNING BARRIERS / SPECIAL NEEDS BARRIERS TO LEARNING?NO HEARING IMPAIRED?NO VISION IMPAIRED?NO COGNITIVELY IMPAIRED?NO READINESS TO LEARN?YES LEARNING PREFERENCES?NO LEARNING CAPABILITIES PRESENT?YES EMOTIONAL BARRIERS?NO SPECIAL DEVICES?NO MANAGER CHINESE NEEDED?NO PAIN CLINIC PFS, CLERGY, PUBLIC HEALTH REFERRALS PFS REFERRAL NEEDED?NO CLERGY REFERRAL NEEDED?NO PUBLIC HEALTH REFERRAL NEEDED?NO WAS THE PROVIDER NOTIFIED OF ANY PERTINENT INFO?NO HAS THE PATIENT BEEN EDUCATED REGARDING HIS/HER PLAN OF CARE?YES HAS THE PATIENT BEEN EDUCATED REGARDING PAIN, THE RISK FOR PAIN, THE IMPORTANCE OF EFFECTIVE PAIN MANAGEMENT, AND THE PAIN ASSESSMENT PROCESS?YES PATIENT: ____. ADVANCE DIRECTIVES HEALTH CARE PROXY?NO WOULD YOU LIKE MORE INFORMATION?NO DO YOU HAVE A DNR?NO WOULD YOU LIKE MORE INFORMATION?NO LIVING WILL?NO WOULD YOU LIKE MORE INFORMATION?NO POWER OF CENTRIFUGAL SUPERVISOR?NO WOULD YOU LIKE MORE INFORMATION?NO REVIEW OF SYSTEMS REVIEWED BY: PROVIDER: PRAVEEN YUN . CONSTITUTIONAL: ANY CHANGE IN YOUR MEDICAL CONDITION? NO . CHILLS NO . FEVER NO . INFECTION: DO YOU HAVE NEW INFECTIONS? NO . DO YOU HAVE HISTORY OF MRSA? NO . MUSCULOSKELETAL: ANY NEW PATTERNS OF PAIN OR NUMBNESS? NO . SYTEMIC LUPUS NO . GASTROENTEROLOGY: ANY NEW CHANGE IN BOWEL CONTROL? NO . BARRETTS ESOPHAGUS NO . CIRRHOSIS NO . HEPATITIS NO . LIVER FAILURE NO . ACID REFLUX NO . UNEXPLAINED WEIGHT LOSS NO . GENITOURINARY: ANY NEW CHANGE IN BLADDER CONTROL? NO . IS THERE A CHANCE YOU COULD BE ? NO . HEMATOLOGY/LYMPH: DO YOU TAKE ANY BLOOD THINNERS? (FOR EXAMPLE- COUMADIN, PLAVIX, AGGRENOX, PLATEL, PRADAXA, OR XARELTO) NO . WHEN WAS YOUR LAST DOSE? DATE: TIME: . LOW PLATELET COUNT NO . SICKLE CELL DISEASE NO . VON WILLIEBRANDS NO . FACTOR V LEIDEN NO . THALLASEMIA NO . ANEMIA NO . EASY BRUISING NO . NEUROLOGY: HAVE YOU FALLEN IN THE PAST 6 MONTHS? NO . ANY NEW EXTREMITY NUMBNESS OR WEAKNESS? NO . HEAD INJURY NO . DEMENTIA NO . CEREBRAL PALSY NO . MULTIPLE SCLEROSIS NO . DIZZINESS NO . HEADACHE NO . STROKES NO . VERTIGO NO . CARDIOLOGY: DO YOU HAVE A PACEMAKER OR DEFIBRILLATOR? NO . ANGINA NO . HEART ATTACK NO . HEART SURGERY NO . CONGESTIVE HEART FAILURE/FLUID OVERLOAD NO . CHEST PAIN NO . HIGH BLOOD PRESSURE NO . IRREGULAR HEART BEAT NO . RESPIRATORY: HAVE YOU BEEN SICK IN THE PAST WEEK? NO . FEVER NO . FLU LIKE SYMPTOMS? NO . CPAP NO . BYPAP NO . ASTHMA ASTHMA A CHILD . EMPHYSEMA NO . CHRONIC LUNG DISEASES NO . SHORTNESS OF BREATH ON EXERTION NO . DO YOU USE ANY TYPE OF TOBACCO (SMOKE, SMOKELESS, CHEW)? YES . COUGH NO . SNORING NO . INTEGUMENTARY: DO YOU HAVE ANY RASHES OR OPEN SORES? NO . ALLERGIC/IMMUNO: ARE YOU ALLERGIC TO SHELLFISH OR IV DYE? NO . ANY NEW ALLERGIES? NO . PSYCHIATRIC: DO YOU HAVE THOUGHTS OF HURTING YOURSELF OR SOMEONE ELSE? NO . ARE YOU ABUSED, NEGLECTED, OR IN AN UNSAFE ENVIRONMENT? NO . ENDOCRINOLOGY: ARE YOU DIABETIC? NO . THYROID DISORDER NO . OTHER: DO YOU NEED ANY PRESCRIPTIONS? NO . IF YES, PLEASE LIST: ____ . ANY NEW PROBLEMS WITH YOUR MEDICATIONS? NO . WHEN DID YOU LAST EAT? ____ . WHEN DID YOU LAST DRINK? ____ . WHAT DID YOU LAST DRINK? ____ . NAME OF PERSON DRIVING YOU HOME? ____ . DO YOU HAVE ANY OTHER QUESTIONS OR CONCERNS NO . VITAL SIGNS WT 96.0 LBS, HT 510 IN, BMI 0.26 INDEX, BP 144/86 MM HG, HR 102 /MIN, RR 18 /MIN, TEMP 96.0 F, OXYGEN SAT % 97%, SAFE IN ENV? (Y/N) YES, NA INITIALS AW 1332, REVIEWED BY: AYAAN. EXAMINATION GENERAL EXAMINATION: GENERAL APPEARANCE:COMFORTABLE . PSYCHAFFECT NORMAL . NECK:TRACHEA MIDLINE. NO CERVICAL OR SUPRACLAVICULAR LYMPHADENOPATHY NOTED . LUNGS:LUNG ADDISON ARE CLEAR TO AUSCULTATION BILATERALLY. GOOD MOVEMENT OF AIR . HEART:S1, S2 IN A REGULAR RATE AND RHYTHM. NO SIGNIFICANT MURMURS, RUBS OR GALLOPS NOTED . ABDOMEN:SOFT, NON-TENDER, NO ORGANOMEGALY, BOWEL SOUNDS ARE NORMAL . MUSCULOSKELETAL:MUSCLE STRENGTH TESTING 5/5 RIGHT/3/5LEFT LOWER EXTREMITIES, PALPATION: POSITIVE FOR PAIN OVER L/S SPINE. POSITIVE FOR PAIN OVER L/S PARSPINALS. NEUROLOGIC EXAM:DTRS 1-2+ IN ALL 4 EXTREMITIES. DIAGNOSTIC TESTS REVIEWEDMRI L/S [id number]-REVIEWED. ASSESSMENTS LUMBAR DISC HERNIATION WITH RADICULOPATHY - M51.16 (PRIMARY) TREATMENT LUMBAR DISC HERNIATION WITH RADICULOPATHY NOTES: L5/S1 INTRALAMINAR LESI,WHAT IS LUMBAR EPIDURAL INJECTION? MATERIAL WAS PRINTED,LUMBAR EPIDURAL INJECTION: YOUR PROCEDURE MATERIAL WAS PRINTED,LUMBAR EPIDURAL INJECTION: RECOVERY AT HOME MATERIAL WAS PRINTED. PREVENTIVE MEDICINE PAIN CLINIC TEACHING: PROCEDURE TEACHING PRE-PROCEDURE TEACHING DONE. QUESTIONS ANSWERED AND PATIENT VERBALIZES UNDERSTANDING.. PROCEDURE CODES FA211 ESTABILISHED PATIENT [facility] CHARGE DISPOSITION & COMMUNICATION FOLLOW UP 2WK POST (REASON: L5/S1 INTRALAMINAR LESI) ELECTRONICALLY SIGNED BY JAMA SALOMON ON 05/15/2017 AT 07:26 PM EST DISCLAIMER : THIS IS A VISIT SUMMARY EXTRACTED FROM THE [employer] CHART. IT IS NOT A COPY OF THE [employer] PROGRESS NOTE. ABDIAS
== END ==
LOC: M PAIN 13:30
PROVIDERS: ATTEND Nurse Practitioner Family
DX: M51.16 Intervertebral disc disorders with radiculopathy, lumbar region (principal); M54.5 Low back pain; G89.29 Other chronic pain; F41.9 Anxiety disorder, unspecified; F17.210 Nicotine dependence, cigarettes, uncomplicated; Z79.899 Other long term (current) drug therapy

== ENCOUNTER → 2017-05-01 | Outpatient (CLI) | payer OTHER ==
[~2017-05-01] MED LIST: ISOVUE-M 300 61% 15ML VIAL (Q9967) As Ordered ONE; LIDOCAINE 1% SDV INJ 30 ML VIAL As Ordered ONE; diazePAM 5 MG TAB As Ordered ONE; methylPREDNISolone SUSP 40 MG/ML (DEPO-medrol) VIAL (J1030) As Ordered ONE; oxyCODONE 5MG TAB As Ordered ONE
--- NOTE | 2017-05-01 17:03 | REP ---
LUMBAR EPIDURAL STEROID INJECTION: All imaging was reviewed with Dr. Pleitez prior to dictation. The portable C-ARM was provided in the OR for Dr. Cruz for fluoroscopic guidance. Three intraoperative fluoroscopic spot films are obtained using last image hold technology for needle placement for this lumbar epidural steroid injection. The films are on the PACS system and are available for review. Fluoroscopy time of 12 seconds were utilized for this procedure. Reviewed by SERGEI Caro 05/02/2017 04:50 PEdited and Signed by Nish Pleitez MD 05/03/2017 07:16 P
--- NOTE | 2017-05-16 00:35 | ECWPNPC ---
PATIENT NAME: MARTIR DUNCAN : 1985 GENDER: MALE VISIT DATE: 05/01/2017 DISCHARGE DATE: 05/01/17 1323 VISIT LOCKED DATE TIME: PHYSICIAN: KAILEY IRWIN RESOURCE: KAILEY IRWIN REASON FOR APPOINTMENT 1. L5/S1 INTRALAMINAR LESI HISTORY OF PRESENT ILLNESS HISTORY OF PRESENT ILLNESS: PAIN THE PATIENT DESCRIBES THE PAIN... FALL RISK SCREENING: SCREENING :NO FALLS IN THE PAST YEAR CURRENT MEDICATIONS TAKING PROZAC 40 MG CAPSULE 1 CAPSULE ORALLY ONCE A DAY, NOTES: 04-30-17 AM TAKING GABAPENTIN 300 MG CAPSULE 1 CAPSULE ORALLY TWO TIMES A DAY, NOTES: 04-30-17 2100 TAKING ACAMPROSATE CALCIUM 333 MG TABLET DELAYED RELEASE 2 TABLETS ORALLY THREE TIMES A DAY, NOTES: 04-30-17 AFTERNOON TAKING HYDROXYZINE HCL 50 MG TABLET 1 TABLET NEEDED ORALLY 3 TIMES A DAY NEEDED, NOTES: NONE RECENT MEDICATION LIST REVIEWED AND RECONCILED WITH THE PATIENT PAST MEDICAL HISTORY ASTHMA ANXIETY DISORDER/ DEPRESSION ALCOHOLISM BACK PAIN ALLERGIES N.K.D.A. SOCIAL HISTORY GENERAL: TOBACCO USE ARE YOU A:CURRENT SMOKER ARE YOU INTERESTED IN QUITTING?NOT READY TO QUIT COUNSELED THE PATIENT ON SMOKING EFFECTS, EDUCATION [id number]/18/2017 HOW MANY CIGARETTES A DAY DO YOU SMOKE?11-20 PATIENT COUNSELED ON THE DANGERS OF TOBACCO USE AND URGED TO QUIT:04/18/2017 ALCOHOL SCREENING DID YOU HAVE A DRINK CONTAINING ALCOHOL IN THE PAST YEAR?YES HOW OFTEN DID YOU HAVE A DRINK CONTAINING ALCOHOL IN THE PAST YEAR?FOUR OR MORE TIMES A WEEK (4 POINTS) HOW MANY DRINKS DID YOU HAVE ON A TYPICAL DAY WHEN YOU WERE DRINKING IN THE PAST YEAR?10 OR MORE (4 POINTS) HOW OFTEN DID YOU HAVE SIX OR MORE DRINKS ON ONE OCCASION IN THE PAST YEAR?DAILY OR ALMOST DAILY (4 POINTS) [id number] INTERPRETATIONPOSITIVE RECREATIONAL DRUG USE DRUG USE?YES HOW OFTEN AND HOW MUCH? "SMOKES WEED ABOUT ONCE A MONTH" RASTAFARIAN [id number] NONE LANGUAGE LANGUAGES SPOKEN:[place] LEARNING BARRIERS / SPECIAL NEEDS BARRIERS TO LEARNING?NO HEARING IMPAIRED?NO VISION IMPAIRED?NO COGNITIVELY IMPAIRED?NO READINESS TO LEARN?YES LEARNING PREFERENCES?NO LEARNING CAPABILITIES PRESENT?YES EMOTIONAL BARRIERS?NO SPECIAL DEVICES?NO SAFETY GLASS INSTALLER NEEDED?NO PAIN CLINIC PFS, CLERGY, PUBLIC HEALTH REFERRALS PFS REFERRAL NEEDED?NO CLERGY REFERRAL NEEDED?NO PUBLIC HEALTH REFERRAL NEEDED?NO WAS THE PROVIDER NOTIFIED OF ANY PERTINENT INFO?NO HAS THE PATIENT BEEN EDUCATED REGARDING HIS/HER PLAN OF CARE?YES HAS THE PATIENT BEEN EDUCATED REGARDING PAIN, THE RISK FOR PAIN, THE IMPORTANCE OF EFFECTIVE PAIN MANAGEMENT, AND THE PAIN ASSESSMENT PROCESS?YES PATIENT: ____. ADVANCE DIRECTIVES HEALTH CARE PROXY?NO WOULD YOU LIKE MORE INFORMATION?NO DO YOU HAVE A DNR?NO WOULD YOU LIKE MORE INFORMATION?NO LIVING WILL?NO WOULD YOU LIKE MORE INFORMATION?NO POWER OF COMMERCIAL REAL ESTATE ASSOCIATE?NO WOULD YOU LIKE MORE INFORMATION?NO REVIEW OF SYSTEMS REVIEWED BY: PROVIDER: . CONSTITUTIONAL: ANY CHANGE IN YOUR MEDICAL CONDITION? NO . CHILLS NO . FEVER NO . INFECTION: DO YOU HAVE NEW INFECTIONS? NO . DO YOU HAVE HISTORY OF MRSA? NO . MUSCULOSKELETAL: ANY NEW PATTERNS OF PAIN OR NUMBNESS? NO . GASTROENTEROLOGY: ANY NEW CHANGE IN BOWEL CONTROL? NO . GENITOURINARY: ANY NEW CHANGE IN BLADDER CONTROL? NO . IS THERE A CHANCE YOU COULD BE ? NO . HEMATOLOGY/LYMPH: DO YOU TAKE ANY BLOOD THINNERS? (FOR EXAMPLE- COUMADIN, PLAVIX, AGGRENOX, PLATEL, PRADAXA, OR XARELTO) NO . WHEN WAS YOUR LAST DOSE? DATE: TIME: . NEUROLOGY: HAVE YOU FALLEN IN THE PAST 6 MONTHS? NO . ANY NEW EXTREMITY NUMBNESS OR WEAKNESS? NO . CARDIOLOGY: DO YOU HAVE A PACEMAKER OR DEFIBRILLATOR? NO . RESPIRATORY: HAVE YOU BEEN SICK IN THE PAST WEEK? NO . FEVER NO . FLU LIKE SYMPTOMS? NO . COUGH NO . INTEGUMENTARY: DO YOU HAVE ANY RASHES OR OPEN SORES? NO . ALLERGIC/IMMUNO: ARE YOU ALLERGIC TO SHELLFISH OR IV DYE? NO . ANY NEW ALLERGIES? NO . PSYCHIATRIC: DO YOU HAVE THOUGHTS OF HURTING YOURSELF OR SOMEONE ELSE? NO . ARE YOU ABUSED, NEGLECTED, OR IN AN UNSAFE ENVIRONMENT? NO . ENDOCRINOLOGY: ARE YOU DIABETIC? NO . OTHER: DO YOU NEED ANY PRESCRIPTIONS? NO . IF YES, PLEASE LIST: ____ . ANY NEW PROBLEMS WITH YOUR MEDICATIONS? NO . WHEN DID YOU LAST EAT? 05-01-17 0130 . WHEN DID YOU LAST DRINK? 05-01-17 1020 . WHAT DID YOU LAST DRINK? WATER . NAME OF PERSON DRIVING YOU HOME? Positionly . DO YOU HAVE ANY OTHER QUESTIONS OR CONCERNS NO . VITAL SIGNS WT 165.0 LBS, HT 510 IN, BMI 0.45 INDEX, BP 129/81 MM HG, HR 84 /MIN, RR 16 /MIN, TEMP 98.4 F, OXYGEN SAT % 98%, NA INITIALS TL 1058, REVIEWED BY: CM. ASSESSMENTS INTERVERTEBRAL DISC DISORDER WITH RADICULOPATHY OF LUMBAR REGION - M51.16 (PRIMARY) PROCEDURES PRE PROCEDURE DIAGNOSIS LUMBAR DISC DISORDER WITH RADICULOPATHY POST PROCEDURE DIAGNOSIS LUMBAR DISC DISORDER WITH RADICULOPATHY PROCEDURE LUMBAR EPIDURAL STEROID INJECTION UNDER FLUOROSCOPIC GUIDANCE SURGEON DR. KAILEY IRWIN ECHO VASC TECH NONE ANESTHESIA LOCAL PRE PROCEDURE NOTE THE PATIENT HAS A HISTORY OF CHRONIC LOW BACK PAIN. I EVALUATE THE PATIENT AND REVIEWED THE CHART. I WENT OVER THE RISKS, ALTERNATIVES, AND BENEFITS ASSOCIATED WITH THIS PROCEDURE. THE PATIENT WOULD LIKE TO PROCEED AND GIVE CONSENT TO PERFORMED THE PROCEDURE. THE PATIENT DENIES UNEXPLAINABLE WEIGHT LOSS, FEVER, CHILLS, OR NEW CHANGES IN URINARY OR BOWEL CONTROL. DESCRIPTION OF PROCEDURE THE PATIENT WAS BROUGHT TO THE PROCEDURE ROOM AND PLACED IN THE PRONE POSITION. THE LUMBOSACRAL AREA WAS CLEANED WITH BETADINE SOLUTION AND DRAPED ASEPTICALLY. THE PROCEDURE WAS DONE UNDER STERILE CONDITIONS. I CHECKED LATERALITY AND THE LEVEL WHERE THE PROCEDURE WAS GOING TO BE PERFORMED WITH THE PATIENT AND THE SUPPORTING STAFF AT THE MOMENT OF THE TIME OUT IN THE PROCEDURE ROOM. UNDER FLUOROSCOPIC GUIDANCE, THE TARGET POINT WAS SELECTED AT THE INTERLAMINAR LEVEL OF L4-L5. LIDOCAINE WAS USED TO NUMB THE SKIN AND THE SUBCUTANEOUS TISSUE BELOW IT. EPIDURAL TUOHY NEEDLE, 17-GAUGE, WAS ADVANCED UNDER FLUOROSCOPIC GUIDANCE AND FOLLOWING PATIENT FEEDBACK UNTIL THE EPIDURAL SPACE WAS REACHED, 7 CM DEEP INTO THE SKIN BY THE LOSS OF RESISTANCE TECHNIQUE. ISOVUE M DYE 30%, 0.25 ML, WAS INJECTED SHOWING ADEQUATE SPREAD OF THE DYE. THEN, A SOLUTION OF 3 ML OF NORMAL SALINE WITH DEPO-MEDROL 60 MG WAS INJECTED SLOWLY FOLLOWING PATIENT FEEDBACK. THERE WAS NO EVIDENCE OF BLOOD, PARESTHESIA OR CEREBROSPINAL FLUID DURING THE PROCEDURE. THE PATIENT WAS SENT TO THE RECOVERY ROOM. THE PATIENT WAS MOVING THE EXTREMITIES AND DOING WELL. THERE WAS NO COMPLICATION DURING THE PROCEDURE. FLUOROSCOPY TIME WAS 12 SECONDS. POST PROCEDURE NOTE THE PATIENT WILL BE SEEN IN A FOLLOW UP IN THE NEXT FEW WEEKS. INSTRUCTIONS WERE GIVEN, QUESTIONS WERE ANSWERED, AND THE PATIENT EXPRESSED UNDERSTANDING AND AGREES WITH THE PLAN. JANNA Wen, DOCUMENTED THE ABOVE INFORMATION ACTING A SCRIBE FOR DR. IRWIN. I HAVE REVIEWED THE ABOVE DOCUMENT, WRITTEN BY JANNA PRATT SCRIBE AND I VERIFY THAT IT IS ACCURATE DIAGNOSTIC IMAGING [facility] FLUORO GUIDE SPINE INJECTION (PAIN)[id number] PROCEDURE CODES 11730 LUMBAR/SACRAL W/ IMAGING 6045F RADXPS IN END [id number] PXD DISPOSITION & COMMUNICATION FOLLOW UP 2 WEEKS ELECTRONICALLY SIGNED BY KAILEY IRWIN MD ON 05/15/2017 AT 02:18 PM EST DISCLAIMER : THIS IS A VISIT SUMMARY EXTRACTED FROM THE [employer] CHART. IT IS NOT A COPY OF THE [employer] PROGRESS NOTE. MTDD
== END ==
LOC: M PAIN 11:00
PROVIDERS: ATTEND Anesthesiology
DX: G89.29 Other chronic pain (principal); M51.16 Intervertebral disc disorders with radiculopathy, lumbar region; F32.9 Major depressive disorder, single episode, unspecified; F41.9 Anxiety disorder, unspecified; F17.210 Nicotine dependence, cigarettes, uncomplicated; Z86.59 Personal history of other mental and behavioral disorders; Z79.899 Other long term (current) drug therapy
CPT/HCPCS: 62323; J1030; Q9967

== ENCOUNTER → 2017-05-29 | Outpatient (CLI) | payer OTHER ==
--- NOTE | 2017-06-14 00:01 | ECWPNPC ---
PATIENT NAME: MARTIR DUNCAN : 1985 GENDER: MALE VISIT DATE: 05/29/2017 DISCHARGE DATE: 05/29/17 1336 VISIT LOCKED DATE TIME: PHYSICIAN: PRAVEEN HERRERA RESOURCE: PRAVEEN HERRERA REASON FOR APPOINTMENT 1. POST PROC HISTORY OF PRESENT ILLNESS HISTORY OF PRESENT ILLNESS: HERE FOR POST PROCEDURE F/U.HAD LESI ON 05-01-17.REPORTS >50% IMPROVEMENT IN PAIN POST PROCEDURE IN LOW BACK PAIN AND LEFT LEG PAIN.RATING PAIN VAS 2/10.PATIENT FEELS PAIN IS SLOWLY RETURNING TO BASELINE. PAIN THE PATIENT DESCRIBES THE PAIN... FALL RISK SCREENING: SCREENING :NO FALLS IN THE PAST YEAR CURRENT MEDICATIONS TAKING PROZAC 40 MG CAPSULE 1 CAPSULE ORALLY ONCE A DAY TAKING GABAPENTIN 300 MG CAPSULE 1 CAPSULE ORALLY TWO TIMES A DAY TAKING ACAMPROSATE CALCIUM 333 MG TABLET DELAYED RELEASE 2 TABLETS ORALLY THREE TIMES A DAY TAKING HYDROXYZINE HCL 50 MG TABLET 1 TABLET NEEDED ORALLY 3 TIMES A DAY NEEDED MEDICATION LIST REVIEWED AND RECONCILED WITH THE PATIENT PAST MEDICAL HISTORY ASTHMA ANXIETY DISORDER/ DEPRESSION ALCOHOLISM BACK PAIN ALLERGIES N.K.D.A. SURGICAL HISTORY DENIES PAST SURGICAL HISTORY SOCIAL HISTORY GENERAL: TOBACCO USE ARE YOU A:CURRENT SMOKER ARE YOU INTERESTED IN QUITTING?NOT READY TO QUIT COUNSELED THE PATIENT ON SMOKING EFFECTS, EDUCATION [id number]/28/2017 HOW MANY CIGARETTES A DAY DO YOU SMOKE?11-20 PATIENT COUNSELED ON THE DANGERS OF TOBACCO USE AND URGED TO QUIT:05/29/2017 ALCOHOL SCREENING DID YOU HAVE A DRINK CONTAINING ALCOHOL IN THE PAST YEAR?YES HOW OFTEN DID YOU HAVE A DRINK CONTAINING ALCOHOL IN THE PAST YEAR?FOUR OR MORE TIMES A WEEK (4 POINTS) HOW MANY DRINKS DID YOU HAVE ON A TYPICAL DAY WHEN YOU WERE DRINKING IN THE PAST YEAR?10 OR MORE (4 POINTS) HOW OFTEN DID YOU HAVE SIX OR MORE DRINKS ON ONE OCCASION IN THE PAST YEAR?DAILY OR ALMOST DAILY (4 POINTS) [id number] INTERPRETATIONPOSITIVE RECREATIONAL DRUG USE DRUG USE?YES HOW OFTEN AND HOW MUCH? "SMOKES WEED ABOUT ONCE A MONTH" EV[employer] [id number] NONE LANGUAGE LANGUAGES SPOKEN:[id number] LEARNING BARRIERS / SPECIAL NEEDS BARRIERS TO LEARNING?NO HEARING IMPAIRED?NO VISION IMPAIRED?NO COGNITIVELY IMPAIRED?NO READINESS TO LEARN?YES LEARNING PREFERENCES?NO LEARNING CAPABILITIES PRESENT?YES EMOTIONAL BARRIERS?NO SPECIAL DEVICES?NO MID LEVEL PROVIDER NEEDED?NO PAIN CLINIC PFS, CLERGY, PUBLIC HEALTH REFERRALS PFS REFERRAL NEEDED?NO CLERGY REFERRAL NEEDED?NO PUBLIC HEALTH REFERRAL NEEDED?NO WAS THE PROVIDER NOTIFIED OF ANY PERTINENT INFO?NO HAS THE PATIENT BEEN EDUCATED REGARDING HIS/HER PLAN OF CARE?YES HAS THE PATIENT BEEN EDUCATED REGARDING PAIN, THE RISK FOR PAIN, THE IMPORTANCE OF EFFECTIVE PAIN MANAGEMENT, AND THE PAIN ASSESSMENT PROCESS?YES PATIENT: ____. ADVANCE DIRECTIVES HEALTH CARE PROXY?NO WOULD YOU LIKE MORE INFORMATION?NO DO YOU HAVE A DNR?NO WOULD YOU LIKE MORE INFORMATION?NO LIVING WILL?NO WOULD YOU LIKE MORE INFORMATION?NO POWER OF ACLS SPECIALIST?NO WOULD YOU LIKE MORE INFORMATION?NO HOSPITALIZATION/MAJOR DIAGNOSTIC PROCEDURE CAN'T REMEMBER REVIEW OF SYSTEMS REVIEWED BY: PROVIDER: PRAVEEN YUN . CONSTITUTIONAL: ANY CHANGE IN YOUR MEDICAL CONDITION? NO . CHILLS NO . FEVER NO . INFECTION: DO YOU HAVE NEW INFECTIONS? NO . DO YOU HAVE HISTORY OF MRSA? NO . MUSCULOSKELETAL: ANY NEW PATTERNS OF PAIN OR NUMBNESS? NO . GASTROENTEROLOGY: ANY NEW CHANGE IN BOWEL CONTROL? NO . GENITOURINARY: ANY NEW CHANGE IN BLADDER CONTROL? NO . IS THERE A CHANCE YOU COULD BE ? NO . HEMATOLOGY/LYMPH: DO YOU TAKE ANY BLOOD THINNERS? (FOR EXAMPLE- COUMADIN, PLAVIX, AGGRENOX, PLATEL, PRADAXA, OR XARELTO) NO . WHEN WAS YOUR LAST DOSE? DATE: TIME: . NEUROLOGY: HAVE YOU FALLEN IN THE PAST 6 MONTHS? NO . ANY NEW EXTREMITY NUMBNESS OR WEAKNESS? NO . CARDIOLOGY: DO YOU HAVE A PACEMAKER OR DEFIBRILLATOR? NO . RESPIRATORY: HAVE YOU BEEN SICK IN THE PAST WEEK? NO . FEVER NO . FLU LIKE SYMPTOMS? NO . COUGH NO . INTEGUMENTARY: DO YOU HAVE ANY RASHES OR OPEN SORES? NO . ALLERGIC/IMMUNO: ARE YOU ALLERGIC TO SHELLFISH OR IV DYE? NO . ANY NEW ALLERGIES? NO . PSYCHIATRIC: DO YOU HAVE THOUGHTS OF HURTING YOURSELF OR SOMEONE ELSE? NO . ARE YOU ABUSED, NEGLECTED, OR IN AN UNSAFE ENVIRONMENT? NO . ENDOCRINOLOGY: ARE YOU DIABETIC? NO . OTHER: DO YOU NEED ANY PRESCRIPTIONS? NO . IF YES, PLEASE LIST: ____ . ANY NEW PROBLEMS WITH YOUR MEDICATIONS? NO . WHEN DID YOU LAST EAT? ____ . WHEN DID YOU LAST DRINK? ____ . WHAT DID YOU LAST DRINK? ____ . NAME OF PERSON DRIVING YOU HOME? ____ . DO YOU HAVE ANY OTHER QUESTIONS OR CONCERNS NO . VITAL SIGNS WT 163.8 LBS, HT 70", BMI 23.50 INDEX, BP 143/90 MM HG, HR 109 /MIN, RR 18 /MIN, TEMP 98.1 F, OXYGEN SAT % 96%, NA INITIALS TL 1254, REVIEWED BY: EM. EXAMINATION GENERAL EXAMINATION: GENERAL APPEARANCE:COMFORTABLE . PSYCHAFFECT NORMAL . NECK:TRACHEA MIDLINE. NO CERVICAL OR SUPRACLAVICULAR LYMPHADENOPATHY NOTED . LUNGS:LUNG ADDISON ARE CLEAR TO AUSCULTATION BILATERALLY. GOOD MOVEMENT OF AIR . HEART:S1, S2 IN A REGULAR RATE AND RHYTHM. NO SIGNIFICANT MURMURS, RUBS OR GALLOPS NOTED . ABDOMEN:SOFT, NON-TENDER, NO ORGANOMEGALY, BOWEL SOUNDS ARE NORMAL . MUSCULOSKELETAL:MUSCLE STRENGTH TESTING 5/5 RIGHT/3/5LEFT LOWER EXTREMITIES, PALPATION: POSITIVE FOR PAIN OVER L/S SPINE. POSITIVE FOR PAIN OVER L/S PARSPINALS. NEUROLOGIC EXAM:DTRS 1-2+ IN ALL 4 EXTREMITIES. DIAGNOSTIC TESTS REVIEWEDMRI L/S [id number]-REVIEWED. ASSESSMENTS LUMBAR DISC HERNIATION WITH RADICULOPATHY - M51.16 (PRIMARY) TREATMENT LUMBAR DISC HERNIATION WITH RADICULOPATHY NOTES: LESI L4/5. PROCEDURE CODES FA211 ESTABILISHED PATIENT [facility] FAC[facility] CHARGE DISPOSITION & COMMUNICATION FOLLOW UP 2WK POST (REASON: LESI L4/5) ELECTRONICALLY SIGNED BY JAMA SALOMON ON 06/13/2017 AT 04:48 PM EST DISCLAIMER : THIS IS A VISIT SUMMARY EXTRACTED FROM THE [employer] CHART. IT IS NOT A COPY OF THE [employer] PROGRESS NOTE. [facility] CENTERJulio César
== END ==
LOC: M PAIN 13:15
PROVIDERS: ATTEND Nurse Practitioner Family
DX: G89.29 Other chronic pain (principal); M51.16 Intervertebral disc disorders with radiculopathy, lumbar region; J45.909 Unspecified asthma, uncomplicated; F41.9 Anxiety disorder, unspecified; F32.9 Major depressive disorder, single episode, unspecified; F10.20 Alcohol dependence, uncomplicated; F17.210 Nicotine dependence, cigarettes, uncomplicated; Z79.899 Other long term (current) drug therapy

== ENCOUNTER → 2017-07-26 | Outpatient (CLI) | payer OTHER | LOC: M PAIN 10:00 | DX: M51.16 Intervertebral disc disorders with radiculopathy, lumbar region (principal); J45.909 Unspecified asthma, uncomplicated; F41.9 Anxiety disorder, unspecified; F32.9 Major depressive disorder, single episode, unspecified; F10.10 Alcohol abuse, uncomplicated; F17.210 Nicotine dependence, cigarettes, uncomplicated | CPT/HCPCS: G0463 ==

== ENCOUNTER → 2017-08-15 | Outpatient (REF) | payer OTHER ==
[2017-08-15 14:58] LABS: ALBUMIN 4.3 GM/DL (3.2-5.2); ALBUMIN/GLOBULIN RATIO 1.34 (1.00-1.93); ALKALINE PHOSPHATASE 74 U/L (45-117); ALT/SGPT 11 U/L (12-78); ANION GAP 8 MEQ/L (8-16); AST/SGOT 10 U/L (7-37); BILIRUBIN,TOTAL 0.5 MG/DL (0.2-1.0); BLOOD UREA NITROGEN 12 MG/DL (7-18); CALCIUM LEVEL 9.2 MG/DL (8.5-10.1); CARBON DIOXIDE LEVEL 26 MEQ/L (21-32); CHLORIDE LEVEL 107 MEQ/L (98-107); CHOLESTEROL LEVEL 197 MG/DL (<200); CHOLESTEROL RISK RATIO 5.969 (<5); CREATININE FOR GFR 1.01 MG/DL (0.70-1.30); GLOMERULAR FILTRATION RATE > 60.0 (>60); GLUCOSE, FASTING 96 MG/DL (70-100); HDL CHOLESTEROL 33 MG/DL (>40); LDL CHOLESTEROL 141.2 MG/DL (<100); NON-HDL-C 164 MG/DL; POTASSIUM SERUM 4.4 MEQ/L (3.5-5.1); SODIUM LEVEL 141 MEQ/L (136-145); TOTAL PROTEIN 7.5 GM/DL (6.4-8.2); TRIGLYCERIDES LEVEL 114 MG/DL (<150)
== END ==
LOC: M LAB REF 13:23
DX: I10 Essential (primary) hypertension (principal)
CPT/HCPCS: 84443

== ENCOUNTER → 2017-08-28 | Outpatient (CLI) | payer OTHER ==
[~2017-08-28] MED LIST changes: +ISOVUE-M 300 61% 15ML VIAL (Q9967) As Ordered; -ISOVUE-M 300 61% 15ML VIAL (Q9967) As Ordered ONE; +LIDOCAINE 1% SDV INJ 30 ML VIAL As Ordered; -LIDOCAINE 1% SDV INJ 30 ML VIAL As Ordered ONE; -diazePAM 5 MG TAB As Ordered ONE; +methylPREDNISolone SUSP 40 MG/ML (DEPO-medrol) VIAL (J1030) As Ordered; -methylPREDNISolone SUSP 40 MG/ML (DEPO-medrol) VIAL (J1030) As Ordered ONE; -oxyCODONE 5MG TAB As Ordered ONE
== END | disposition home or self-care (01) ==
LOC: M PAIN 10:00
DX: G89.29 Other chronic pain (principal); M51.17 Intervertebral disc disorders with radiculopathy, lumbosacral region; J45.909 Unspecified asthma, uncomplicated; F41.9 Anxiety disorder, unspecified; F33.9 Major depressive disorder, recurrent, unspecified; F10.10 Alcohol abuse, uncomplicated; F17.210 Nicotine dependence, cigarettes, uncomplicated
CPT/HCPCS: J1030

== ENCOUNTER → 2017-09-12 | Outpatient (CLI) | payer OTHER | LOC: M PAIN 11:00 | DX: M51.16 Intervertebral disc disorders with radiculopathy, lumbar region (principal); F41.9 Anxiety disorder, unspecified; F32.9 Major depressive disorder, single episode, unspecified; F17.210 Nicotine dependence, cigarettes, uncomplicated; Z79.899 Other long term (current) drug therapy | CPT/HCPCS: G0463 ==

== ENCOUNTER → 2017-09-20 | Outpatient (CLI) | payer OTHER | LOC: M OUTALCOH 11:28 | DX: Z13.9 Encounter for screening, unspecified (principal); F10.20 Alcohol dependence, uncomplicated ==

== ENCOUNTER 2017-09-28 10:28 | Outpatient (RCR) | payer OTHER | END 2017-09-29 | LOC: M OUTALCOH 10:28 | DX: F10.20 Alcohol dependence, uncomplicated (principal); F11.10 Opioid abuse, uncomplicated; F12.10 Cannabis abuse, uncomplicated; F17.200 Nicotine dependence, unspecified, uncomplicated ==

== ENCOUNTER 2017-10-03 13:23 | Outpatient (RCR) | payer OTHER | END 2017-10-29 | LOC: M OUTALCOH 13:23 | DX: F10.20 Alcohol dependence, uncomplicated (principal); F11.10 Opioid abuse, uncomplicated; F12.10 Cannabis abuse, uncomplicated; F17.200 Nicotine dependence, unspecified, uncomplicated ==

== ENCOUNTER 2017-11-01 13:00 | Outpatient (RCR) | payer OTHER | END 2017-11-29 | LOC: M OUTALCOH 13:00 | DX: F10.20 Alcohol dependence, uncomplicated (principal); F11.10 Opioid abuse, uncomplicated; F12.10 Cannabis abuse, uncomplicated; F17.200 Nicotine dependence, unspecified, uncomplicated ==

== ENCOUNTER 2017-12-06 11:30 | Outpatient (RCR) | payer OTHER | END 2017-12-29 | LOC: M OUTALCOH 12-13 11:00 | DX: F10.20 Alcohol dependence, uncomplicated (principal); F11.10 Opioid abuse, uncomplicated; F12.10 Cannabis abuse, uncomplicated; F17.200 Nicotine dependence, unspecified, uncomplicated ==

== ENCOUNTER 2018-01-03 15:15 | Outpatient (RCR) | payer OTHER | END 2018-01-29 | LOC: M OUTALCOH 15:15 | DX: F10.20 Alcohol dependence, uncomplicated (principal); F11.10 Opioid abuse, uncomplicated; F12.10 Cannabis abuse, uncomplicated; F17.200 Nicotine dependence, unspecified, uncomplicated ==

== ENCOUNTER → 2018-01-10 | Outpatient (REF) | LOC: M SMT 13:02 | DX: Z00.00 Encounter for general adult medical examination without abnormal findings (principal) ==

== ENCOUNTER → 2018-02-07 | Outpatient (CLI) | payer OTHER | LOC: M PAIN 10:00 | DX: M51.16 Intervertebral disc disorders with radiculopathy, lumbar region (principal); G89.29 Other chronic pain; J45.909 Unspecified asthma, uncomplicated; F41.9 Anxiety disorder, unspecified; F32.9 Major depressive disorder, single episode, unspecified; F10.10 Alcohol abuse, uncomplicated; F17.210 Nicotine dependence, cigarettes, uncomplicated; Z79.1 Long term (current) use of non-steroidal anti-inflammatories (NSAID) | CPT/HCPCS: G0463 ==

== ENCOUNTER 2018-03-08 14:49 | Outpatient (RCR) | payer OTHER | END 2018-03-31 | LOC: M OUTALCOH 14:49 | DX: F10.20 Alcohol dependence, uncomplicated (principal); F11.10 Opioid abuse, uncomplicated; F12.10 Cannabis abuse, uncomplicated; F17.200 Nicotine dependence, unspecified, uncomplicated ==

== ENCOUNTER → 2018-03-18 | Outpatient (CLI) | payer OTHER ==
[2018-03-18 12:08] LABS: BASO % 0.5 % (0.0-1.0); EOS # 0.1 10^3/uL (0.0-0.50); EOS % 1.2 % (0.0-3.0); HEMATOCRIT 44.1 % (42.0-52.0); HEMOGLOBIN 15.1 g/dl (13.5-17.5); IMMATURE GRANULOCYTE % 0.3 % (0-3.0); LYMPH # 2.5 10^3/uL (1.5-4.5); LYMPH % 28.7 % (24.0-44.0); MEAN CORPUSCULAR HEMOGLOBIN 30.8 pg (27.0-33.0); MEAN CORPUSCULAR HGB CONC 34.2 g/dl (32.0-36.5); MEAN CORPUSCULAR VOLUME 89.8 fl (80.0-96.0); MONO # 0.9 10^3/uL (0.0-0.8); MONO % 10.3 % (0.0-5.0); NEUTROPHILS # 5.1 10^3/uL (1.8-7.7); PLATELET COUNT, AUTOMATED 225 10^3/uL (150-450); RED BLOOD COUNT 4.91 10^6/uL (4.30-6.10); RED CELL DISTRIBUTION WIDTH 13.3 % (11.5-14.5); WHITE BLOOD COUNT 8.6 10^3/uL (4.0-10.0)
[2018-03-18 12:41] LABS: ALBUMIN 3.8 GM/DL (3.2-5.2); ALBUMIN/GLOBULIN RATIO 1.15 (1.00-1.93); ALKALINE PHOSPHATASE 71 U/L (45-117); ALT/SGPT 12 U/L (12-78); ANION GAP 7 MEQ/L (8-16); AST/SGOT 10 U/L (7-37); BILIRUBIN,TOTAL 0.4 MG/DL (0.2-1.0); BLOOD UREA NITROGEN 13 MG/DL (7-18); CALCIUM LEVEL 8.8 MG/DL (8.5-10.1); CARBON DIOXIDE LEVEL 26 MEQ/L (21-32); CHLORIDE LEVEL 105 MEQ/L (98-107); CHOLESTEROL LEVEL 153 MG/DL (<200); CHOLESTEROL RISK RATIO 5.275 (<5); CREATININE FOR GFR 1.03 MG/DL (0.70-1.30); GLOMERULAR FILTRATION RATE > 60.0 (>60); GLUCOSE, FASTING 77 MG/DL (70-100); HDL CHOLESTEROL 29 MG/DL (>40); LDL CHOLESTEROL 107 MG/DL (<100); NON-HDL-C 124 MG/DL; POTASSIUM SERUM 4.3 MEQ/L (3.5-5.1); SODIUM LEVEL 138 MEQ/L (136-145); TOTAL 25(OH) VITAMIN D 37.5 NG/ML (30.0-100.0); TOTAL PROTEIN 7.1 GM/DL (6.4-8.2); TRIGLYCERIDES LEVEL 85 MG/DL (<150)
== END ==
LOC: M LAB 11:22
DX: F40.10 Social phobia, unspecified (principal)
CPT/HCPCS: 84443

== ENCOUNTER 2018-04-04 14:00 | Outpatient (RCR) | payer OTHER | END 2018-05-01 | LOC: M OUTALCOH 04-12 15:54 | DX: F10.20 Alcohol dependence, uncomplicated (principal); F11.10 Opioid abuse, uncomplicated; F12.10 Cannabis abuse, uncomplicated; F17.200 Nicotine dependence, unspecified, uncomplicated ==

== ENCOUNTER 2018-05-10 15:00 | Outpatient (RCR) | payer OTHER | END 2018-05-31 | LOC: M OUTALCOH 15:00 | DX: F10.20 Alcohol dependence, uncomplicated (principal); F11.10 Opioid abuse, uncomplicated; F12.10 Cannabis abuse, uncomplicated; F17.200 Nicotine dependence, unspecified, uncomplicated ==

== ENCOUNTER → 2018-05-10 | Outpatient (CLI) | payer OTHER | LOC: M PAIN 09:00 | DX: M51.16 Intervertebral disc disorders with radiculopathy, lumbar region (principal); G89.29 Other chronic pain; J45.909 Unspecified asthma, uncomplicated; F41.9 Anxiety disorder, unspecified; F32.9 Major depressive disorder, single episode, unspecified; F10.10 Alcohol abuse, uncomplicated; F17.210 Nicotine dependence, cigarettes, uncomplicated; Z79.899 Other long term (current) drug therapy | CPT/HCPCS: G0463 ==

== ENCOUNTER → 2018-08-09 | Outpatient (CLI) | payer OTHER ==
--- NOTE | 2018-08-10 00:50 | ECWPNPC ---
PATIENT NAME: MARTIR DUNCAN : 1985 GENDER: MALE VISIT DATE: 08/09/2018 DISCHARGE DATE: 08/09/18930 VISIT LOCKED DATE TIME: PHYSICIAN: PRAVEEN HERRERA RESOURCE: PRAVEEN HERRERA REASON FOR APPOINTMENT 1. 3 MONTH HISTORY OF PRESENT ILLNESS HISTORY OF PRESENT ILLNESS: HERE FOR F/U OF CHRONIC LOW BACK PAIN WITH LEFT LEG RADICULAR SYMPTOMS.HISTORY OF LARGE DISC PROTRUSION AT L5/S1 PER MRI IMAGING 03-23-17.HE IS A POOR HISTORIAN.HAS HISTORY OF SUBSTANCE ABUSE DISORDER.RATING PAIN VAS 3/10.DISCUSSED TREATMENT OPTIONS.HE WOULD LIKE TO HOLD OF ON SURGERY.HAS RESPONDED TO PROCEDURES DONE HERE.STATES HIS PAIN IS TOLERABLE AND IS WORSE IN AM.HE STATES HE TAKES IBUPROFEN 600MG AND THIS IS HELPFUL. PAIN THE PATIENT DESCRIBES THE PAIN... THE PATIENT DESCRIBES THE PAIN... THE PATIENT DESCRIBES THE PAIN... THE PATIENT DESCRIBES THE PAIN... THE PATIENT DESCRIBES THE PAIN... PAIN THE PATIENT DESCRIBES THE PAIN... THE PATIENT DESCRIBES THE PAIN... THE PATIENT DESCRIBES THE PAIN... THE PATIENT DESCRIBES THE PAIN... THE PATIENT DESCRIBES THE PAIN... FALL RISK SCREENING: SCREENING :NO FALLS IN THE PAST YEAR CURRENT MEDICATIONS TAKING IBUPROFEN 600 MG TABLET 1 TABLET WITH FOOD OR MILK NEEDED ORALLY THREE TIMES A DAY TAKING CYMBALTA 60 MG CAPSULE DELAYED RELEASE PARTICLES CAPSULE ORALLY ONCE A DAY UNKNOWN IBUPROFEN 600 MG TABLET 1 TABLET WITH FOOD OR MILK NEEDED ORALLY THREE TIMES A DAY UNKNOWN ACAMPROSATE CALCIUM 333 MG TABLET DELAYED RELEASE 2 TABLETS ORALLY THREE TIMES A DAY UNKNOWN HYDROXYZINE HCL 25 MG TABLET 1 TABLET NEEDED ORALLY BEFORE BEDTIME UNKNOWN CYMBALTA 20 MG CAPSULE DELAYED RELEASE PARTICLES 2 CAPSULE ORALLY ONCE A DAY UNKNOWN PROZAC 40 MG CAPSULE 1 CAPSULE ORALLY ONCE A DAY UNKNOWN GABAPENTIN 300 MG CAPSULE 1 CAPSULE ORALLY TWO TIMES A DAY MEDICATION LIST REVIEWED AND RECONCILED WITH THE PATIENT PAST MEDICAL HISTORY ASTHMA ANXIETY DISORDER/ DEPRESSION ALCOHOLISM BACK PAIN ALLERGIES N.K.D.A. SURGICAL HISTORY NO SURGICAL HISTORY DOCUMENTED. FAMILY HISTORY FATHER: , DIAGNOSED WITH HEART DISEASE MOTHER: ALIVE 1 BROTHER(S) , 1 SISTER(S) . SOCIAL HISTORY GENERAL: TOBACCO USE ARE YOU A:CURRENT SMOKER ARE YOU INTERESTED IN QUITTING?NOT READY TO QUIT COUNSELED THE PATIENT ON SMOKING EFFECTS, EDUCATION [id number]/14/2018 HOW MANY CIGARETTES A DAY DO YOU SMOKE?11-20 PATIENT COUNSELED ON THE DANGERS OF TOBACCO USE AND URGED TO QUIT:09/12/2017 ALCOHOL SCREENING DID YOU HAVE A DRINK CONTAINING ALCOHOL IN THE PAST YEAR?YES HOW OFTEN DID YOU HAVE A DRINK CONTAINING ALCOHOL IN THE PAST YEAR?FOUR OR MORE TIMES A WEEK (4 POINTS) HOW MANY DRINKS DID YOU HAVE ON A TYPICAL DAY WHEN YOU WERE DRINKING IN THE PAST YEAR?10 OR MORE (4 POINTS) HOW OFTEN DID YOU HAVE SIX OR MORE DRINKS ON ONE OCCASION IN THE PAST YEAR?DAILY OR ALMOST DAILY (4 POINTS) [id number] INTERPRETATIONPOSITIVE RECREATIONAL DRUG USE DRUG USE?YES HOW OFTEN AND HOW MUCH? "SMOKES WEED ABOUT ONCE A MONTH" SHINTO [id number] NONE LANGUAGE LANGUAGES SPOKEN:SAMI LEARNING BARRIERS / SPECIAL NEEDS BARRIERS TO LEARNING?NO HEARING IMPAIRED?NO VISION IMPAIRED?NO COGNITIVELY IMPAIRED?NO READINESS TO LEARN?YES LEARNING PREFERENCES?NO LEARNING CAPABILITIES PRESENT?YES EMOTIONAL BARRIERS?NO SPECIAL DEVICES?NO COMPUTER PUBLISHER NEEDED?NO PAIN CLINIC PFS, CLERGY, PUBLIC HEALTH REFERRALS PFS REFERRAL NEEDED?NO CLERGY REFERRAL NEEDED?NO PUBLIC HEALTH REFERRAL NEEDED?NO WAS THE PROVIDER NOTIFIED OF ANY PERTINENT INFO?NO HAS THE PATIENT BEEN EDUCATED REGARDING HIS/HER PLAN OF CARE?YES HAS THE PATIENT BEEN EDUCATED REGARDING PAIN, THE RISK FOR PAIN, THE IMPORTANCE OF EFFECTIVE PAIN MANAGEMENT, AND THE PAIN ASSESSMENT PROCESS?YES ADVANCE DIRECTIVE ADVANCE DIRECTIVE DISCUSSED WITH PATIENT:YES PT DOES NOT WANT INFO AT THIS TIME. 05/10/18 REVIEWED WITH PT 05/10/18 0916 BV. HOSPITALIZATION/MAJOR DIAGNOSTIC PROCEDURE [facility] 05/2017 REVIEW OF SYSTEMS REVIEWED BY: PROVIDER: PRAVEEN YUN . CONSTITUTIONAL: ANY CHANGE IN YOUR MEDICAL CONDITION? NO . CHILLS NO . FEVER NO . INFECTION: DO YOU HAVE NEW INFECTIONS? NO . DO YOU HAVE HISTORY OF MRSA? NO . MUSCULOSKELETAL: ANY NEW PATTERNS OF PAIN OR NUMBNESS? INCREASE DOWN BACK LEG . GASTROENTEROLOGY: ANY NEW CHANGE IN BOWEL CONTROL? NO . GENITOURINARY: ANY NEW CHANGE IN BLADDER CONTROL? NO . IS THERE A CHANCE YOU COULD BE ? NO . HEMATOLOGY/LYMPH: DO YOU TAKE ANY BLOOD THINNERS? (FOR EXAMPLE- COUMADIN, PLAVIX, AGGRENOX, PLATEL, PRADAXA, OR XARELTO) NO . WHEN WAS YOUR LAST DOSE? DATE: TIME: . NEUROLOGY: HAVE YOU FALLEN IN THE PAST 12 MONTHS? NO . ANY NEW EXTREMITY NUMBNESS OR WEAKNESS? NO . CARDIOLOGY: DO YOU HAVE A PACEMAKER OR DEFIBRILLATOR? NO . RESPIRATORY: HAVE YOU BEEN SICK IN THE PAST WEEK? NO . FEVER NO . FLU LIKE SYMPTOMS? NO . COUGH NO . INTEGUMENTARY: DO YOU HAVE ANY RASHES OR OPEN SORES? NO . ALLERGIC/IMMUNO: ARE YOU ALLERGIC TO IV DYE? NO . ANY NEW ALLERGIES? NO . PSYCHIATRIC: DO YOU HAVE THOUGHTS OF HURTING YOURSELF OR SOMEONE ELSE? NO . ARE YOU ABUSED, NEGLECTED, OR IN AN UNSAFE ENVIRONMENT? NO . ENDOCRINOLOGY: ARE YOU DIABETIC? NO . OTHER: DO YOU NEED ANY PRESCRIPTIONS? NO . IF YES, PLEASE LIST: ____ . ANY NEW PROBLEMS WITH YOUR MEDICATIONS? NO . WHEN DID YOU LAST EAT? ____ . WHEN DID YOU LAST DRINK? ____ . WHAT DID YOU LAST DRINK? ____ . NAME OF PERSON DRIVING YOU HOME? ____ . DO YOU HAVE ANY OTHER QUESTIONS OR CONCERNS NO . VITAL SIGNS WT 162.2 LBS, HT 70", BMI 23.27 INDEX, BP 129/75 MM HG, HR 94 /MIN, RR 16 /MIN, TEMP 97.9 F, OXYGEN SAT % 99%, NA INITIALS SC 09:12. EXAMINATION GENERAL EXAMINATION: GENERAL APPEARANCE:NO DISTRESS/ALERT. PSYCHAFFECT FLAT. LUNGS:LUNG SOUNDS ARE CLEAR. HEART:HEART RATE REGULAR. BACK:NO TENDERNESS. 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 PROCEDURE CODES FA211 ESTABILISHED PATIENT [facility] CHARGE DISPOSITION & COMMUNICATION FOLLOW UP 3 MONTHS ELECTRONICALLY SIGNED BY JAMA CONLEY ON 08/09/2018 AT 09:34 AM EST DISCLAIMER : THIS IS A VISIT SUMMARY EXTRACTED FROM THE [employer] CHART. IT IS NOT A COPY OF THE [employer] PROGRESS NOTE. ABDIAS
== END ==
LOC: M PAIN 09:00
PROVIDERS: ATTEND Nurse Practitioner Family
DX: M51.16 Intervertebral disc disorders with radiculopathy, lumbar region (principal); G89.29 Other chronic pain; F17.210 Nicotine dependence, cigarettes, uncomplicated; J45.909 Unspecified asthma, uncomplicated; F41.9 Anxiety disorder, unspecified; F32.9 Major depressive disorder, single episode, unspecified; F10.20 Alcohol dependence, uncomplicated; Z79.899 Other long term (current) drug therapy

== ENCOUNTER → 2018-12-12 | Outpatient (CLI) | payer OTHER ==
--- NOTE | 2018-12-12 15:09 | REP ---
Chest two views HISTORY: Cough Comparison: None The lungs are hyperinflated . The lungs are clear. The heart is normal in size. The pulmonary vasculature is normal in appearance. The bony structure is intact. IMPRESSION: No acute disease. Electronically Signed by Terell Kelly MD 12/12/2018 02:57 P
== END ==
LOC: M RAD 14:13
PROVIDERS: ATTEND Family Medicine Addiction Medicine
DX: R05 Cough (principal)

== ENCOUNTER → 2019-02-10 | Outpatient (CLI) | payer OTHER ==
--- NOTE | 2019-02-27 00:29 | ECWPNPC ---
PATIENT NAME: MARTIR DUNCAN : 1985 GENDER: MALE VISIT DATE: 02/10/2019 DISCHARGE DATE: 02/10/19 1447 VISIT LOCKED DATE TIME: PHYSICIAN: PRAVEEN HERRERA RESOURCE: PRAVEEN HERRERA REASON FOR APPOINTMENT 1. LOW BACK PAIN HISTORY OF PRESENT ILLNESS HISTORY OF PRESENT ILLNESS: HERE FOR F/U OF CHRONIC LBP WITH RADIATION INTO LEFT POSTERIOR THIGH.RATING PAIN VAS 4/10. PAIN THE PATIENT DESCRIBES THE PAIN... FALL RISK SCREENING: SCREENING :NO FALLS REPORTED IN THE LAST YEAR CURRENT MEDICATIONS TAKING CYMBALTA 60 MG CAPSULE DELAYED RELEASE PARTICLES CAPSULE ORALLY ONCE A DAY TAKING IBUPROFEN 600 MG TABLET 1 TABLET WITH FOOD OR MILK NEEDED ORALLY THREE TIMES A DAY TAKING DOXYCYCLINE MONOHYDRATE 100 MG CAPSULE 1 CAPSULE ORALLY BID WITH FOOD AND WATER TAKING CLINDAMYCIN PHOSPHATE 1 % GEL 1 APPLICATION TO AFFECTED AREA EXTERNALLY ONCE A DAY AFTER WASHING TO FACE, NECK, JAWLINE (USE DIFFERIN TO SAME AREAS AT NIGHT) TAKING MINOCYCLINE HCL 100 MG CAPSULE 1 CAPSULE ORALLY EVERY 12 HRS WITH FOOD AND WATER (NOT MILK) NOT-TAKING IBUPROFEN 600 MG TABLET 1 TABLET WITH FOOD OR MILK NEEDED ORALLY THREE TIMES A DAY NOT-TAKING ACAMPROSATE CALCIUM 333 MG TABLET DELAYED RELEASE 2 TABLETS ORALLY THREE TIMES A DAY NOT-TAKING HYDROXYZINE HCL 25 MG TABLET 1 TABLET NEEDED ORALLY BEFORE BEDTIME NOT-TAKING CYMBALTA 20 MG CAPSULE DELAYED RELEASE PARTICLES 2 CAPSULE ORALLY ONCE A DAY NOT-TAKING PROZAC 40 MG CAPSULE 1 CAPSULE ORALLY ONCE A DAY NOT-TAKING GABAPENTIN 300 MG CAPSULE 1 CAPSULE ORALLY TWO TIMES A DAY MEDICATION LIST REVIEWED AND RECONCILED WITH THE PATIENT PAST MEDICAL HISTORY ASTHMA ANXIETY DISORDER/ DEPRESSION ALCOHOLISM BACK PAIN CYSTS - BOILS ON NECK, JAW LINE AND BACK ALLERGIES N.K.D.A. SURGICAL HISTORY NO SURGICAL HISTORY DOCUMENTED. FAMILY HISTORY FATHER: , DIAGNOSED WITH HEART DISEASE MOTHER: ALIVE 1 BROTHER(S) , 1 SISTER(S) . DENIES FAMILY HX OF MELANOMA AND PANCREATIC CANCER. SOCIAL HISTORY GENERAL: TOBACCO USE ARE YOU A:CURRENT SMOKER ARE YOU INTERESTED IN QUITTING?NOT READY TO QUIT COUNSELED THE PATIENT ON SMOKING EFFECTS, EDUCATION [id number]/14/2018 HOW MANY CIGARETTES A DAY DO YOU SMOKE?11-20 PATIENT COUNSELED ON THE DANGERS OF TOBACCO USE AND URGED TO QUIT:02/10/2019 PAIN CLINIC PFS, CLERGY, PUBLIC HEALTH REFERRALS PFS REFERRAL NEEDED?NO CLERGY REFERRAL NEEDED?NO PUBLIC HEALTH REFERRAL NEEDED?NO WAS THE PROVIDER NOTIFIED OF ANY PERTINENT INFO?YES HAS THE PATIENT BEEN EDUCATED REGARDING HIS/HER PLAN OF CARE?YES HAS THE PATIENT BEEN EDUCATED REGARDING PAIN, THE RISK FOR PAIN, THE IMPORTANCE OF EFFECTIVE PAIN MANAGEMENT, AND THE PAIN ASSESSMENT PROCESS?YES LATEX QUESTIONNAIRE LATEX ALLERGY : HAVE YOU EVER DEVELOPED ANY TYPE OF REACTION AFTER HANDLING LATEX PRODUCTS SUCH RUBBER GLOVES, CONDOMS, DIAPHRAGMS, BALLOONS, SOCKS, OR UNDERWEAR?NO LATEX ALLERGY : HAVE YOU EVER DEVELOPED ANY TYPE OF REACTION DURING OR AFTER DENTAL APPOINTMENT, VAGINAL/RECTAL EXAMINATION, SURGICAL PROCEDURE, OR ANY OTHER EXPOSURE?NO LATEX RISK : HAVE YOU EVER HAD ANY DIFFICULTY BREATHING OR HIVES AFTER EATING OR HANDLING ANY FRUITS, OR VEGETABLES; SUCH KIWI, BANANAS, STONE FRUITS, OR CHESTNUTSNO LATEX RISK : DO YOU HAVE A PREVIOUS PERSONAL HISTORY OF MORE THAN NINE SURGERIES, SPINA BIFIDA, OR REPEATED CATHERIZATIONS? NO LATEX RISK : ARE YOU FREQUENTLY EXPOSED TO LATEX PRODUCTS IN YOUR OCCUPATION?NO DATE ASKED : 02/10/2019 ADVANCE DIRECTIVE ADVANCE DIRECTIVE DISCUSSED WITH PATIENT:YES PT DOES NOT WANT INFO AT THIS TIME, DECLINES ASSISTANCE WITH PAPERWORK. LATTER-DAY [id number] NONE LANGUAGE LANGUAGES SPOKEN:SWEDISH ALCOHOL SCREENING DID YOU HAVE A DRINK CONTAINING ALCOHOL IN THE PAST YEAR?YES HOW OFTEN DID YOU HAVE A DRINK CONTAINING ALCOHOL IN THE PAST YEAR?FOUR OR MORE TIMES A WEEK (4 POINTS) HOW MANY DRINKS DID YOU HAVE ON A TYPICAL DAY WHEN YOU WERE DRINKING IN THE PAST YEAR?10 OR MORE (4 POINTS) HOW OFTEN DID YOU HAVE SIX OR MORE DRINKS ON ONE OCCASION IN THE PAST YEAR?DAILY OR ALMOST DAILY (4 POINTS) [id number] INTERPRETATIONPOSITIVE RECREATIONAL DRUG USE DRUG USE?YES HOW OFTEN AND HOW MUCH? "SMOKES WEED ABOUT ONCE A MONTH" LEARNING BARRIERS / SPECIAL NEEDS CHANGE FROM LAST VISIT? 09/18/18, 12/31/18 BARRIERS TO LEARNING?NO HEARING IMPAIRED?NO VISION IMPAIRED?NO COGNITIVELY IMPAIRED?NO READINESS TO LEARN?YES LEARNING PREFERENCES?NO LEARNING CAPABILITIES PRESENT?YES EMOTIONAL BARRIERS?NO SPRAY MACHINE LOADER NEEDED?NO REVIEWED WITH PT 05/10/18 0916 BV. HOSPITALIZATION/MAJOR DIAGNOSTIC PROCEDURE [facility] 05/2017 REVIEW OF SYSTEMS REVIEWED BY: PROVIDER: PRAVEEN YUN . CONSTITUTIONAL: ANY CHANGE IN YOUR MEDICAL CONDITION? NO . CHILLS NO . FEVER YES, FEVER AND COUGH, GIVEN ANTIBIOTICS FOR COUGH, COUGH HAS REDUCED, TAKING INHALER MEDS NOW TO CONTROL COUGHING. . INFECTION: DO YOU HAVE NEW INFECTIONS? NO . DO YOU HAVE HISTORY OF MRSA? NO . MUSCULOSKELETAL: ANY NEW PATTERNS OF PAIN OR NUMBNESS? NO . GASTROENTEROLOGY: ANY NEW CHANGE IN BOWEL CONTROL? NO . GENITOURINARY: ANY NEW CHANGE IN BLADDER CONTROL? NO . IS THERE A CHANCE YOU COULD BE ? NO . HEMATOLOGY/LYMPH: DO YOU TAKE ANY BLOOD THINNERS? (FOR EXAMPLE- COUMADIN, PLAVIX, AGGRENOX, PLATEL, PRADAXA, OR XARELTO) NO . WHEN WAS YOUR LAST DOSE? DATE: TIME: . NEUROLOGY: HAVE YOU FALLEN IN THE PAST 12 MONTHS? NO . ANY NEW EXTREMITY NUMBNESS OR WEAKNESS? NO . CARDIOLOGY: DO YOU HAVE A PACEMAKER OR DEFIBRILLATOR? NO . RESPIRATORY: HAVE YOU BEEN SICK IN THE PAST WEEK? NO . FEVER NO . FLU LIKE SYMPTOMS? NO . COUGH NO . INTEGUMENTARY: DO YOU HAVE ANY RASHES OR OPEN SORES? NO . ALLERGIC/IMMUNO: ARE YOU ALLERGIC TO IV DYE? NO . ANY NEW ALLERGIES? NO . PSYCHIATRIC: DO YOU HAVE THOUGHTS OF HURTING YOURSELF OR SOMEONE ELSE? NO . ARE YOU ABUSED, NEGLECTED, OR IN AN UNSAFE ENVIRONMENT? NO . ENDOCRINOLOGY: ARE YOU DIABETIC? NO . OTHER: DO YOU NEED ANY PRESCRIPTIONS? NO . IF YES, PLEASE LIST: ____ . ANY NEW PROBLEMS WITH YOUR MEDICATIONS? NO . WHEN DID YOU LAST EAT? ____ . WHEN DID YOU LAST DRINK? ____ . WHAT DID YOU LAST DRINK? ____ . NAME OF PERSON DRIVING YOU HOME? ____ . DO YOU HAVE ANY OTHER QUESTIONS OR CONCERNS NO . VITAL SIGNS WT 153.6 LBS, HT 70", BMI 22.04 INDEX, BP 132/86 MM HG, HR 109 /MIN, RR 16 /MIN, TEMP 97.9 F, OXYGEN SAT % 96%, NA INITIALS SC 14:24. EXAMINATION GENERAL EXAMINATION: GENERALNO DISTRESS/ALERT. PSYCHAFFECT FLAT. LUNGS:LUNG SOUNDS ARE CLEAR. HEART:HEART RATE REGULAR. BACK:NO TENDERNESS. 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 PROCEDURE CODES FA211 ESTABILISHED PATIENT [facility] CHARGE DISPOSITION & COMMUNICATION FOLLOW UP 3 MONTHS ELECTRONICALLY SIGNED BY JAMA CONLEY ON 02/26/2019 AT 01:46 PM EDT DISCLAIMER : THIS IS A VISIT SUMMARY EXTRACTED FROM THE [employer] CHART. IT IS NOT A COPY OF THE [employer] PROGRESS NOTE. ABDIAS
== END ==
LOC: M PAIN 14:15
PROVIDERS: ATTEND Nurse Practitioner Family
DX: M51.16 Intervertebral disc disorders with radiculopathy, lumbar region (principal); G89.29 Other chronic pain; J45.909 Unspecified asthma, uncomplicated; Z86.59 Personal history of other mental and behavioral disorders; F17.210 Nicotine dependence, cigarettes, uncomplicated; Z79.899 Other long term (current) drug therapy

== ENCOUNTER → 2019-04-23 | Outpatient (REF) | payer OTHER ==
[2019-04-23 17:40] LABS: BASO # 0.1 10^3/uL (0.0-0.2); BASO % 0.6 % (0.0-1.0); EOS # 0.1 10^3/uL (0.0-0.5); EOS % 1.3 % (0.0-3.0); HEMATOCRIT 44.1 % (42.0-52.0); HEMOGLOBIN 14.7 g/dl (13.5-17.5); LYMPH # 2.6 10^3/uL (1.5-5.0); MEAN CORPUSCULAR HEMOGLOBIN 31.1 pg (27.0-33.0); MEAN CORPUSCULAR HGB CONC 33.3 g/dl (32.0-36.5); MEAN CORPUSCULAR VOLUME 93.4 fl (80.0-96.0); MONO # 1.1 10^3/uL (0.0-0.8); MONO % 10.9 % (0.0-5.0); NEUTROPHILS # 6.1 10^3/uL (1.5-8.5); NEUTROPHILS % 60.7 % (36.0-66.0); PLATELET COUNT, AUTOMATED 216 10^3/uL (150-450); RED BLOOD COUNT 4.72 10^6/uL (4.30-6.10)
[2019-04-23 17:51] LABS: ALT/SGPT 23 U/L (12-78); BILIRUBIN,TOTAL 0.3 MG/DL (0.2-1.0); BLOOD UREA NITROGEN 15 MG/DL (7-18); CALCIUM LEVEL 8.9 MG/DL (8.5-10.1); CARBON DIOXIDE LEVEL 27 MEQ/L (21-32); CHLORIDE LEVEL 106 MEQ/L (98-107); CHOLESTEROL LEVEL 182 MG/DL (<200); CREATININE FOR GFR 1.04 MG/DL (0.70-1.30); FREE T4 0.73 NG/DL (0.76-1.46); GLOMERULAR FILTRATION RATE > 60.0 (>60); GLUCOSE, FASTING 92 MG/DL (70-100); HDL CHOLESTEROL 54 MG/DL (>40); LDL CHOLESTEROL 111 MG/DL (<100); NON-HDL-C 128 MG/DL; POTASSIUM SERUM 4.2 MEQ/L (3.5-5.1); SODIUM LEVEL 139 MEQ/L (136-145); TOTAL 25(OH) VITAMIN D 20.7 NG/ML (30.0-100.0); TOTAL PROTEIN 6.8 GM/DL (6.4-8.2); TRIGLYCERIDES LEVEL 83 MG/DL (<150)
[2019-04-23 17:54] LABS: HEMOGLOBIN A1c 5.5 %
== END ==
LOC: M LAB REF 16:56
PROVIDERS: ATTEND Nurse Practitioner Family
DX: Z00.01 Encounter for general adult medical examination with abnormal findings (principal)

== ENCOUNTER → 2019-05-13 | Outpatient (CLI) | payer OTHER ==
--- NOTE | 2019-05-28 04:53 | ECWPNPC ---
PATIENT NAME: MARTIR DUNCAN : 1985 GENDER: MALE VISIT DATE: 05/13/2019 DISCHARGE DATE: 05/13/19 1450 VISIT LOCKED DATE TIME: PHYSICIAN: PRAVEEN HERRERA RESOURCE: PRAVEEN HERRERA REASON FOR APPOINTMENT 1. LOW BACK PAIN HISTORY OF PRESENT ILLNESS HISTORY OF PRESENT ILLNESS: HERE FOR F/U OF CHRONIC LBP WITH RADIATION INTO LEFT POSTERIOR THIGH.RATING PAIN VAS 2/10.CURRENTLY USING IBUPROFEN 600-800MG Q8H PRN FOR PAIN WITH RELIEF. PAIN THE PATIENT DESCRIBES THE PAIN... THE PATIENT DESCRIBES THE PAIN... THE PATIENT DESCRIBES THE PAIN... FALL RISK SCREENING: SCREENING :NO FALLS REPORTED IN THE LAST YEAR :NO FALLS REPORTED IN THE LAST YEAR SCREENING :NO FALLS REPORTED IN THE LAST YEAR :NO FALLS REPORTED IN THE LAST YEAR CURRENT MEDICATIONS TAKING CYMBALTA 60 MG CAPSULE DELAYED RELEASE PARTICLES CAPSULE ORALLY ONCE A DAY TAKING IBUPROFEN 600 MG TABLET 1 TABLET WITH FOOD OR MILK NEEDED ORALLY THREE TIMES A DAY TAKING ABILIFY 5 MG TABLET 1 TABLET ORALLY ONCE A DAY TAKING DOXYCYCLINE MONOHYDRATE 100 MG CAPSULE 1 CAPSULE ORALLY BID WITH FOOD AND WATER TAKING CLINDAMYCIN PHOSPHATE 1 % GEL 1 APPLICATION TO AFFECTED AREA EXTERNALLY ONCE A DAY AFTER WASHING TO FACE, NECK, JAWLINE (USE DIFFERIN TO SAME AREAS AT NIGHT) NOT-TAKING DOXYCYCLINE MONOHYDRATE 100 MG CAPSULE 1 CAPSULE ORALLY BID WITH FOOD AND WATER NOT-TAKING IBUPROFEN 600 MG TABLET 1 TABLET WITH FOOD OR MILK NEEDED ORALLY THREE TIMES A DAY NOT-TAKING ACAMPROSATE CALCIUM 333 MG TABLET DELAYED RELEASE 2 TABLETS ORALLY THREE TIMES A DAY NOT-TAKING HYDROXYZINE HCL 25 MG TABLET 1 TABLET NEEDED ORALLY BEFORE BEDTIME NOT-TAKING CYMBALTA 20 MG CAPSULE DELAYED RELEASE PARTICLES 2 CAPSULE ORALLY ONCE A DAY NOT-TAKING PROZAC 40 MG CAPSULE 1 CAPSULE ORALLY ONCE A DAY NOT-TAKING GABAPENTIN 300 MG CAPSULE 1 CAPSULE ORALLY TWO TIMES A DAY MEDICATION LIST REVIEWED AND RECONCILED WITH THE PATIENT PAST MEDICAL HISTORY ASTHMA ANXIETY DISORDER/ DEPRESSION ALCOHOLISM BACK PAIN CYSTS - BOILS ON NECK, JAW LINE AND BACK ALLERGIES N.K.D.A. SURGICAL HISTORY DENIES PAST SURGICAL HISTORY FAMILY HISTORY FATHER: , DIAGNOSED WITH UNSPECIFIED HEART DISEASE MOTHER: ALIVE 1 BROTHER(S) , 1 SISTER(S) . DENIES FAMILY HX OF MELANOMA AND PANCREATIC CANCER. SOCIAL HISTORY GENERAL: TOBACCO USE ARE YOU A:CURRENT SMOKER ARE YOU INTERESTED IN QUITTING?NOT READY TO QUIT COUNSELED THE PATIENT ON SMOKING EFFECTS, EDUCATION [id number]/12/2019 HOW MANY CIGARETTES A DAY DO YOU SMOKE?- PATIENT COUNSELED ON THE DANGERS OF TOBACCO USE AND URGED TO QUIT:05/13/2019 PAIN CLINIC PFS, CLERGY, PUBLIC HEALTH REFERRALS PFS REFERRAL NEEDED?NO CLERGY REFERRAL NEEDED?NO PUBLIC HEALTH REFERRAL NEEDED?NO WAS THE PROVIDER NOTIFIED OF ANY PERTINENT INFO?YES HAS THE PATIENT BEEN EDUCATED REGARDING HIS/HER PLAN OF CARE?YES HAS THE PATIENT BEEN EDUCATED REGARDING PAIN, THE RISK FOR PAIN, THE IMPORTANCE OF EFFECTIVE PAIN MANAGEMENT, AND THE PAIN ASSESSMENT PROCESS?YES LATEX QUESTIONNAIRE LATEX ALLERGY : HAVE YOU EVER DEVELOPED ANY TYPE OF REACTION AFTER HANDLING LATEX PRODUCTS SUCH RUBBER GLOVES, CONDOMS, DIAPHRAGMS, BALLOONS, SOCKS, OR UNDERWEAR?NO LATEX ALLERGY : HAVE YOU EVER DEVELOPED ANY TYPE OF REACTION DURING OR AFTER DENTAL APPOINTMENT, VAGINAL/RECTAL EXAMINATION, SURGICAL PROCEDURE, OR ANY OTHER EXPOSURE?NO LATEX RISK : HAVE YOU EVER HAD ANY DIFFICULTY BREATHING OR HIVES AFTER EATING OR HANDLING ANY FRUITS, OR VEGETABLES; SUCH KIWI, BANANAS, STONE FRUITS, OR CHESTNUTSNO LATEX RISK : DO YOU HAVE A PREVIOUS PERSONAL HISTORY OF MORE THAN NINE SURGERIES, SPINA BIFIDA, OR REPEATED CATHERIZATIONS? NO LATEX RISK : ARE YOU FREQUENTLY EXPOSED TO LATEX PRODUCTS IN YOUR OCCUPATION?NO DATE ASKED : 02/10/2019 ADVANCE DIRECTIVE ADVANCE DIRECTIVE DISCUSSED WITH PATIENT:YES PT DOES NOT WANT INFO AT THIS TIME, DECLINES ASSISTANCE WITH PAPERWORK. PENTECOSTAL [id number] NONE LANGUAGE LANGUAGES SPOKEN:IRISH ALCOHOL SCREENING DID YOU HAVE A DRINK CONTAINING ALCOHOL IN THE PAST YEAR?YES HOW OFTEN DID YOU HAVE SIX OR MORE DRINKS ON ONE OCCASION IN THE PAST YEAR?DAILY OR ALMOST DAILY (4 POINTS) HOW MANY DRINKS DID YOU HAVE ON A TYPICAL DAY WHEN YOU WERE DRINKING IN THE PAST YEAR?10 OR MORE (4 POINTS) HOW OFTEN DID YOU HAVE A DRINK CONTAINING ALCOHOL IN THE PAST YEAR?FOUR OR MORE TIMES A WEEK (4 POINTS) [id number] INTERPRETATIONPOSITIVE RECREATIONAL DRUG USE DRUG USE?YES HOW OFTEN AND HOW MUCH? "SMOKES WEED ABOUT ONCE A MONTH" LEARNING BARRIERS / SPECIAL NEEDS CHANGE FROM LAST VISIT? 09/18/18, 12/31/18,03/28/19 BARRIERS TO LEARNING?NO HEARING IMPAIRED?NO VISION IMPAIRED?NO COGNITIVELY IMPAIRED?NO READINESS TO LEARN?YES LEARNING PREFERENCES?NO LEARNING CAPABILITIES PRESENT?YES EMOTIONAL BARRIERS?NO UPHOLSTERY TRIMMER NEEDED?NO REVIEWED WITH PT 05/10/18 0927 BVREVIEWED WITH PATIENT 05/13/19 1433 JS. HOSPITALIZATION/MAJOR DIAGNOSTIC PROCEDURE [facility] 05/2017 REVIEW OF SYSTEMS REVIEWED BY: PROVIDER: , PRAVEEN YUN . CONSTITUTIONAL: ANY CHANGE IN YOUR MEDICAL CONDITION? NO, NO . CHILLS NO, NO . FEVER NO, NO . INFECTION: DO YOU HAVE NEW INFECTIONS? NO, NO . DO YOU HAVE HISTORY OF MRSA? NO, NO . MUSCULOSKELETAL: ANY NEW PATTERNS OF PAIN OR NUMBNESS? NO, NO . GASTROENTEROLOGY: ANY NEW CHANGE IN BOWEL CONTROL? NO, NO . GENITOURINARY: ANY NEW CHANGE IN BLADDER CONTROL? NO, NO . IS THERE A CHANCE YOU COULD BE ? NO, NO . HEMATOLOGY/LYMPH: DO YOU TAKE ANY BLOOD THINNERS? (FOR EXAMPLE- COUMADIN, PLAVIX, AGGRENOX, PLATEL, PRADAXA, OR XARELTO) NO, NO . WHEN WAS YOUR LAST DOSE? DATE: TIME: , DATE: TIME: . NEUROLOGY: HAVE YOU FALLEN IN THE PAST 12 MONTHS? NO, NO . ANY NEW EXTREMITY NUMBNESS OR WEAKNESS? NO, NO . CARDIOLOGY: DO YOU HAVE A PACEMAKER OR DEFIBRILLATOR? NO, NO . RESPIRATORY: HAVE YOU BEEN SICK IN THE PAST WEEK? NO, NO . FEVER NO, NO . FLU LIKE SYMPTOMS? NO, NO . COUGH NO, NO . INTEGUMENTARY: DO YOU HAVE ANY RASHES OR OPEN SORES? NO, NO . ALLERGIC/IMMUNO: ARE YOU ALLERGIC TO IV DYE? NO, NO . ANY NEW ALLERGIES? NO, NO . PSYCHIATRIC: DO YOU HAVE THOUGHTS OF HURTING YOURSELF OR SOMEONE ELSE? NO, NO . ARE YOU ABUSED, NEGLECTED, OR IN AN UNSAFE ENVIRONMENT? NO, NO . ENDOCRINOLOGY: ARE YOU DIABETIC? NO, NO . OTHER: DO YOU NEED ANY PRESCRIPTIONS? YES . IF YES, PLEASE LIST: IBUPROFEN . ANY NEW PROBLEMS WITH YOUR MEDICATIONS? NO, NO . WHEN DID YOU LAST EAT? ____, ____ . WHEN DID YOU LAST DRINK? ____, ____ . WHAT DID YOU LAST DRINK? ____, ____ . NAME OF PERSON DRIVING YOU HOME? ____, ____ . DO YOU HAVE ANY OTHER QUESTIONS OR CONCERNS NO, NO . VITAL SIGNS WT 176.8 LBS, HT 70", BMI 25.37 INDEX, BP 134/75 MM HG, HR 101 /MIN, RR 18 /MIN, TEMP 98.2 F, OXYGEN SAT % 98%, SAFE IN ENV? (Y/N) YES, NA INITIALS DC 14:32, REVIEWED BY: CONRADO. EXAMINATION GENERAL EXAMINATION: GENERAL NO DISTRESS/ALERT. PSYCH AFFECT FULL RANGE. LUNGS: LUNG SOUNDS ARE CLEAR. HEART: HEART RATE REGULAR. BACK: NO TENDERNESS. 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 IT IS NOT A COPY OF THE [employer] PROGRESS NOTE. ABDIAS
== END ==
LOC: M PAIN 14:15
PROVIDERS: ATTEND Nurse Practitioner Family
DX: M51.16 Intervertebral disc disorders with radiculopathy, lumbar region (principal)

== ENCOUNTER → 2019-09-25 | Outpatient (CLI) | payer OTHER ==
--- NOTE | 2019-09-26 00:55 | ECWPNPC ---
PATIENT NAME: MARTIR DUNCAN : 1985 GENDER: MALE VISIT DATE: 09/25/2019 DISCHARGE DATE: 09/25/19 0958 VISIT LOCKED DATE TIME: PHYSICIAN: RPAVEEN HERRERA RESOURCE: PRAVEEN HERRERA REASON FOR APPOINTMENT 1. CARMEN-LOW BACK HISTORY OF PRESENT ILLNESS HISTORY OF PRESENT ILLNESS: CONFIRMED WITH PATIENT THAT TELEPHONE OFFICE VISIT TODAY WAS APPROPRIATE. CONTINUES WITH CHRONIC LOW BACK PAIN WITH RADIATION INTO LEFT POSTERIOR THIGH. PAIN IS AGGRAVATED BY PROLONGED STANDING. GETTING ADEQUATE RELIEF WITH IBUPROFEN 600 MG 3 TIMES A DAY. RATING PAIN LEVEL A 2/10 VAS. PAIN THE PATIENT DESCRIBES THE PAIN... FALL RISK SCREENING: SCREENING :NO FALLS REPORTED IN THE LAST YEAR CURRENT MEDICATIONS TAKING CYMBALTA 60 MG CAPSULE DELAYED RELEASE PARTICLES CAPSULE ORALLY ONCE A DAY TAKING ABILIFY 5 MG TABLET 1 TABLET ORALLY ONCE A DAY TAKING IBUPROFEN 600 MG TABLET 1 TABLET WITH FOOD OR MILK NEEDED ORALLY Q8H PRN PAIN TAKING DOXYCYCLINE MONOHYDRATE 100 MG CAPSULE 1 CAPSULE ORALLY BID WITH FOOD AND WATER TAKING CLINDAMYCIN PHOSPHATE 1 % GEL 1 APPLICATION TO AFFECTED AREA EXTERNALLY ONCE A DAY AFTER WASHING TO FACE, NECK, JAWLINE (USE DIFFERIN TO SAME AREAS AT NIGHT) NOT-TAKING IBUPROFEN 600 MG TABLET 1 TABLET WITH FOOD OR MILK NEEDED ORALLY THREE TIMES A DAY, NOTES: DUPLICATE NOT-TAKING DOXYCYCLINE MONOHYDRATE 100 MG CAPSULE 1 CAPSULE ORALLY BID WITH FOOD AND WATER NOT-TAKING IBUPROFEN 600 MG TABLET 1 TABLET WITH FOOD OR MILK NEEDED ORALLY THREE TIMES A DAY NOT-TAKING ACAMPROSATE CALCIUM 333 MG TABLET DELAYED RELEASE 2 TABLETS ORALLY THREE TIMES A DAY NOT-TAKING HYDROXYZINE HCL 25 MG TABLET 1 TABLET NEEDED ORALLY BEFORE BEDTIME NOT-TAKING CYMBALTA 20 MG CAPSULE DELAYED RELEASE PARTICLES 2 CAPSULE ORALLY ONCE A DAY NOT-TAKING PROZAC 40 MG CAPSULE 1 CAPSULE ORALLY ONCE A DAY NOT-TAKING GABAPENTIN 300 MG CAPSULE 1 CAPSULE ORALLY TWO TIMES A DAY MEDICATION LIST REVIEWED AND RECONCILED WITH THE PATIENT PAST MEDICAL HISTORY ASTHMA ANXIETY DISORDER/ DEPRESSION ALCOHOLISM BACK PAIN CYSTS - BOILS ON NECK, JAW LINE AND BACK ALLERGIES N.K.D.A. SURGICAL HISTORY DENIES PAST SURGICAL HISTORY FAMILY HISTORY FATHER: , DIAGNOSED WITH UNSPECIFIED HEART DISEASE MOTHER: ALIVE 1 BROTHER(S) , 1 SISTER(S) . DENIES FAMILY HX OF MELANOMA AND PANCREATIC CANCER. SOCIAL HISTORY GENERAL: TOBACCO USE ARE YOU A:CURRENT SMOKER ARE YOU INTERESTED IN QUITTING?NOT READY TO QUIT COUNSELED THE PATIENT ON SMOKING EFFECTS, EDUCATION [id number]/26/2020 HOW MANY CIGARETTES A DAY DO YOU SMOKE?11-20 PATIENT COUNSELED ON THE DANGERS OF TOBACCO USE AND URGED TO QUIT:09/25/2019 PAIN CLINIC PFS, CLERGY, PUBLIC HEALTH REFERRALS PFS REFERRAL NEEDED?NO CLERGY REFERRAL NEEDED?NO PUBLIC HEALTH REFERRAL NEEDED?NO WAS THE PROVIDER NOTIFIED OF ANY PERTINENT INFO?YES HAS THE PATIENT BEEN EDUCATED REGARDING HIS/HER PLAN OF CARE?YES HAS THE PATIENT BEEN EDUCATED REGARDING PAIN, THE RISK FOR PAIN, THE IMPORTANCE OF EFFECTIVE PAIN MANAGEMENT, AND THE PAIN ASSESSMENT PROCESS?YES LATEX QUESTIONNAIRE LATEX ALLERGY : HAVE YOU EVER DEVELOPED ANY TYPE OF REACTION AFTER HANDLING LATEX PRODUCTS SUCH RUBBER GLOVES, CONDOMS, DIAPHRAGMS, BALLOONS, SOCKS, OR UNDERWEAR?NO LATEX ALLERGY : HAVE YOU EVER DEVELOPED ANY TYPE OF REACTION DURING OR AFTER DENTAL APPOINTMENT, VAGINAL/RECTAL EXAMINATION, SURGICAL PROCEDURE, OR ANY OTHER EXPOSURE?NO LATEX RISK : HAVE YOU EVER HAD ANY DIFFICULTY BREATHING OR HIVES AFTER EATING OR HANDLING ANY FRUITS, OR VEGETABLES; SUCH KIWI, BANANAS, STONE FRUITS, OR CHESTNUTSNO LATEX RISK : DO YOU HAVE A PREVIOUS PERSONAL HISTORY OF MORE THAN NINE SURGERIES, SPINA BIFIDA, OR REPEATED CATHERIZATIONS? NO LATEX RISK : ARE YOU FREQUENTLY EXPOSED TO LATEX PRODUCTS IN YOUR OCCUPATION?NO DATE ASKED : 09/25/2019 ADVANCE DIRECTIVE ADVANCE DIRECTIVE DISCUSSED WITH PATIENT:YES PT DOES NOT WANT INFO AT THIS TIME, DECLINES ASSISTANCE WITH PAPERWORK. CHURCH [id number] NONE LANGUAGE LANGUAGES SPOKEN:AFGHAN NEW PATIENT PAIN DIARY TODAY'S VISITNOTES 09/25/2019 PATIENT DESCRIBES PAIN :SHOOTING FROM 0-10, WHAT LEVEL IS YOUR PAIN TODAY?2 ALCOHOL SCREENING DID YOU HAVE A DRINK CONTAINING ALCOHOL IN THE PAST YEAR?YES HOW OFTEN DID YOU HAVE SIX OR MORE DRINKS ON ONE OCCASION IN THE PAST YEAR?DAILY OR ALMOST DAILY (4 POINTS) HOW MANY DRINKS DID YOU HAVE ON A TYPICAL DAY WHEN YOU WERE DRINKING IN THE PAST YEAR?10 OR MORE (4 POINTS) HOW OFTEN DID YOU HAVE A DRINK CONTAINING ALCOHOL IN THE PAST YEAR?FOUR OR MORE TIMES A WEEK (4 POINTS) [id number] INTERPRETATIONPOSITIVE RECREATIONAL DRUG USE DRUG USE?YES HOW OFTEN AND HOW MUCH? "SMOKES WEED ABOUT ONCE A MONTH" LEARNING BARRIERS / SPECIAL NEEDS CHANGE FROM LAST VISIT? 03/20/19, 12/31/18,03/28/19 BARRIERS TO LEARNING?NO HEARING IMPAIRED?NO VISION IMPAIRED?NO COGNITIVELY IMPAIRED?NO READINESS TO LEARN?YES LEARNING PREFERENCES?NO LEARNING CAPABILITIES PRESENT?YES EMOTIONAL BARRIERS?NO APPEALS EXAMINER NEEDED?NO HOSPITALIZATION/MAJOR DIAGNOSTIC PROCEDURE [facility] 05/2017 REVIEW OF SYSTEMS REVIEWED BY: PROVIDER: PRAVEEN YUN . CONSTITUTIONAL: ANY CHANGE IN YOUR MEDICAL CONDITION? NO . CHILLS NO . FEVER NO . INFECTION: DO YOU HAVE NEW INFECTIONS? NO . DO YOU HAVE HISTORY OF MRSA? NO . MUSCULOSKELETAL: ANY NEW PATTERNS OF PAIN OR NUMBNESS? NO . GASTROENTEROLOGY: ANY NEW CHANGE IN BOWEL CONTROL? NO . GENITOURINARY: ANY NEW CHANGE IN BLADDER CONTROL? NO . IS THERE A CHANCE YOU COULD BE ? NO . HEMATOLOGY/LYMPH: DO YOU TAKE ANY BLOOD THINNERS? (FOR EXAMPLE- COUMADIN, PLAVIX, AGGRENOX, PLATEL, PRADAXA, OR XARELTO) NO . WHEN WAS YOUR LAST DOSE? DATE: TIME: . NEUROLOGY: HAVE YOU FALLEN IN THE PAST 12 MONTHS? NO . ANY NEW EXTREMITY NUMBNESS OR WEAKNESS? NO . CARDIOLOGY: DO YOU HAVE A PACEMAKER OR DEFIBRILLATOR? NO . RESPIRATORY: HAVE YOU BEEN SICK IN THE PAST WEEK? NO . FEVER NO . FLU LIKE SYMPTOMS? NO . COUGH NO . INTEGUMENTARY: DO YOU HAVE ANY RASHES OR OPEN SORES? NO . ALLERGIC/IMMUNO: ARE YOU ALLERGIC TO IV DYE? NO . ANY NEW ALLERGIES? NO . PSYCHIATRIC: DO YOU HAVE THOUGHTS OF HURTING YOURSELF OR SOMEONE ELSE? NO . ARE YOU ABUSED, NEGLECTED, OR IN AN UNSAFE ENVIRONMENT? NO . ENDOCRINOLOGY: ARE YOU DIABETIC? NO . OTHER: DO YOU NEED ANY PRESCRIPTIONS? YES . IF YES, PLEASE LIST: ____IBUPROFEN . ANY NEW PROBLEMS WITH YOUR MEDICATIONS? NO . WHEN DID YOU LAST EAT? ____ . WHEN DID YOU LAST DRINK? ____ . WHAT DID YOU LAST DRINK? ____ . NAME OF PERSON DRIVING YOU HOME? ____ . DO YOU HAVE ANY OTHER QUESTIONS OR CONCERNS NO . 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 DISPOSITION & COMMUNICATION FOLLOW UP 3 MONTHS ELECTRONICALLY SIGNED BY JAMA CONLEY ON 09/25/2019 AT 09:59 AM EDT DISCLAIMER : THIS IS A VISIT SUMMARY EXTRACTED FROM THE [employer] CHART. IT IS NOT A COPY OF THE [employer] PROGRESS NOTE. ABDIAS
== END ==
LOC: M PAIN 09:00
PROVIDERS: ATTEND Nurse Practitioner Family
DX: M51.16 Intervertebral disc disorders with radiculopathy, lumbar region (principal)

== ENCOUNTER → 2019-12-26 | Outpatient (CLI) | payer OTHER ==
--- NOTE | 2019-12-27 03:56 | ECWPNPC ---
PATIENT NAME: MARTIR DUNCAN : 1985 GENDER: MALE VISIT DATE: 12/26/2019 DISCHARGE DATE: 12/26/19929 VISIT LOCKED DATE TIME: PHYSICIAN: PRAVEEN HERRERA RESOURCE: PRAVEEN HERRERA REASON FOR APPOINTMENT 1. 3 MONTHS HISTORY OF PRESENT ILLNESS GENERAL: HERE FOR FOLLOW-UP OF CHRONIC LOW BACK PAIN AND LEFT LEG PAIN. HISTORY OF HERNIATED DISC. PAIN HAS GOTTEN BAD OVER THE PAST 2 WEEKS. DENIES PRECIPITATING EVENT. PAIN IS LOCATED IN THE LEFT LOW BACK AND RADIATES INTO THE LEFT LATERAL THIGH. HAS RESPONDED WELL TO L5-S1 LESI IN THE PAST LAST BEING DONE A FEW YEARS AGO. DISCUSSED TREATMENT PLAN. -. FALL RISK SCREENING: SCREENING :NO FALLS REPORTED IN THE LAST YEAR PAIN SCREENING: PATIENT HAS A COMPLAINT OF ACUTE OR CHRONIC PAIN :YES 12/26/19 INTENSITY OF PAIN (SCALE OF 1 TO 10):6 WHAT DOES YOUR PAIN FEEL LIKE:CONTINOUS, SHOOTING PAIN IS INCREASED BY: MORNINGS PAIN IS DECREASED BY: IBUPROFEN, ACTIVITY NURSING NOTE: -. PAIN CENTER INTAKE QUESTIONS: DO YOU HAVE A HISTORY OF MRSA? :NO DO YOU TAKE A BLOOD THINNERS? :NO DO YOU HAVE ANY BLEEDING DISORDERS? :NO ANY NEW NUMBNESS OR WEAKNESS IN YOUR LEGS OR ARMS? :NO ANY PACEMAKER,DEFIBRILLATOR, OR DORSAL COLUMN STIMULATOR? :NO DO YOU HAVE ANY RASHES OR OPEN SORES? :NO ARE YOU ALLERGIC TO IV DYE? :NO ARE YOU DIABETIC? :NO ANY NEW PROBLEMS WITH YOUR MEDICATIONS? :NO HAVE YOU RECEIVED A VACCINE IN THE PAST 30 DAYS? :NO DO YOU PLAN TO RECEIVE A VACCINE IN THE NEXT 21 DAYS? :NO DO YOU NEED ANY PRESCRIPTION? :NO DO YOU TAKE ANY IMMUNOSUPPRESSIVE MEDICATIONS? :NO IS THERE A CHANCE YOU COULD BE ? :NO ARE YOU BREAST FEEDING? :NO CURRENT MEDICATIONS TAKING CYMBALTA 60 MG CAPSULE DELAYED RELEASE PARTICLES CAPSULE ORALLY ONCE A DAY TAKING ABILIFY 5 MG TABLET 1 TABLET ORALLY ONCE A DAY TAKING IBUPROFEN 600 MG TABLET 1 TABLET WITH FOOD OR MILK NEEDED ORALLY Q8H PRN PAIN NOT-TAKING DOXYCYCLINE MONOHYDRATE 100 MG CAPSULE 1 CAPSULE ORALLY BID WITH FOOD AND WATER NOT-TAKING CLINDAMYCIN PHOSPHATE 1 % GEL 1 APPLICATION TO AFFECTED AREA EXTERNALLY ONCE A DAY AFTER WASHING TO FACE, NECK, JAWLINE (USE DIFFERIN TO SAME AREAS AT NIGHT) NOT-TAKING IBUPROFEN 600 MG TABLET 1 TABLET WITH FOOD OR MILK NEEDED ORALLY THREE TIMES A DAY, NOTES: DUPLICATE NOT-TAKING DOXYCYCLINE MONOHYDRATE 100 MG CAPSULE 1 CAPSULE ORALLY BID WITH FOOD AND WATER NOT-TAKING IBUPROFEN 600 MG TABLET 1 TABLET WITH FOOD OR MILK NEEDED ORALLY THREE TIMES A DAY NOT-TAKING ACAMPROSATE CALCIUM 333 MG TABLET DELAYED RELEASE 2 TABLETS ORALLY THREE TIMES A DAY NOT-TAKING HYDROXYZINE HCL 25 MG TABLET 1 TABLET NEEDED ORALLY BEFORE BEDTIME NOT-TAKING CYMBALTA 20 MG CAPSULE DELAYED RELEASE PARTICLES 2 CAPSULE ORALLY ONCE A DAY NOT-TAKING PROZAC 40 MG CAPSULE 1 CAPSULE ORALLY ONCE A DAY NOT-TAKING GABAPENTIN 300 MG CAPSULE 1 CAPSULE ORALLY TWO TIMES A DAY MEDICATION LIST REVIEWED AND RECONCILED WITH THE PATIENT PAST MEDICAL HISTORY ASTHMA ANXIETY DISORDER/ DEPRESSION ALCOHOLISM BACK PAIN CYSTS - BOILS ON NECK, JAW LINE AND BACK ALLERGIES N.K.D.A. SURGICAL HISTORY NO SURGICAL HISTORY DOCUMENTED. FAMILY HISTORY FATHER: , DIAGNOSED WITH UNSPECIFIED HEART DISEASE MOTHER: ALIVE 1 BROTHER(S) , 1 SISTER(S) . DENIES FAMILY HX OF MELANOMA AND PANCREATIC CANCER. SOCIAL HISTORY GENERAL: TOBACCO USE ARE YOU A:CURRENT SMOKER ARE YOU INTERESTED IN QUITTING?NOT READY TO QUIT COUNSELED THE PATIENT ON SMOKING EFFECTS, EDUCATION [id number]/26/2020 HOW MANY CIGARETTES A DAY DO YOU SMOKE?11-20 PATIENT COUNSELED ON THE DANGERS OF TOBACCO USE AND URGED TO QUIT:09/25/2019 LATEX QUESTIONNAIRE LATEX ALLERGY : HAVE YOU EVER DEVELOPED ANY TYPE OF REACTION AFTER HANDLING LATEX PRODUCTS SUCH RUBBER GLOVES, CONDOMS, DIAPHRAGMS, BALLOONS, SOCKS, OR UNDERWEAR?NO LATEX ALLERGY : HAVE YOU EVER DEVELOPED ANY TYPE OF REACTION DURING OR AFTER DENTAL APPOINTMENT, VAGINAL/RECTAL EXAMINATION, SURGICAL PROCEDURE, OR ANY OTHER EXPOSURE?NO DATE ASKED : 09/25/2019 LATEX RISK : HAVE YOU EVER HAD ANY DIFFICULTY BREATHING OR HIVES AFTER EATING OR HANDLING ANY FRUITS, OR VEGETABLES; SUCH KIWI, BANANAS, STONE FRUITS, OR CHESTNUTSNO LATEX RISK : DO YOU HAVE A PREVIOUS PERSONAL HISTORY OF MORE THAN NINE SURGERIES, SPINA BIFIDA, OR REPEATED CATHERIZATIONS? NO LATEX RISK : ARE YOU FREQUENTLY EXPOSED TO LATEX PRODUCTS IN YOUR OCCUPATION?NO ALCOHOL SCREENING DID YOU HAVE A DRINK CONTAINING ALCOHOL IN THE PAST YEAR?YES HOW OFTEN DID YOU HAVE SIX OR MORE DRINKS ON ONE OCCASION IN THE PAST YEAR?DAILY OR ALMOST DAILY (4 POINTS) HOW MANY DRINKS DID YOU HAVE ON A TYPICAL DAY WHEN YOU WERE DRINKING IN THE PAST YEAR?10 OR MORE (4 POINTS) HOW OFTEN DID YOU HAVE A DRINK CONTAINING ALCOHOL IN THE PAST YEAR?FOUR OR MORE TIMES A WEEK (4 POINTS) [id number] INTERPRETATIONPOSITIVE RECREATIONAL DRUG USE DRUG USE?YES HOW OFTEN AND HOW MUCH? "SMOKES WEED ABOUT ONCE A MONTH" JUDAISM [id number] NONE LANGUAGE LANGUAGES SPOKEN:LUXEMBOURGISH LEARNING BARRIERS / SPECIAL NEEDS CHANGE FROM LAST VISIT? 09/18/18, 12/31/18,03/28/19 BARRIERS TO LEARNING?NO HEARING IMPAIRED?NO VISION IMPAIRED?NO COGNITIVELY IMPAIRED?NO READINESS TO LEARN?YES LEARNING PREFERENCES?NO LEARNING CAPABILITIES PRESENT?YES EMOTIONAL BARRIERS?NO PUSHER OPERATOR NEEDED?NO NEW PATIENT PAIN DIARY TODAY'S VISITNOTES 09/25/2019 PATIENT DESCRIBES PAIN :SHOOTING FROM 0-10, WHAT LEVEL IS YOUR PAIN TODAY?2 PAIN CLINIC PFS, CLERGY, PUBLIC HEALTH REFERRALS PFS REFERRAL NEEDED?NO CLERGY REFERRAL NEEDED?NO PUBLIC HEALTH REFERRAL NEEDED?NO WAS THE PROVIDER NOTIFIED OF ANY PERTINENT INFO?YES HAS THE PATIENT BEEN EDUCATED REGARDING HIS/HER PLAN OF CARE?YES HAS THE PATIENT BEEN EDUCATED REGARDING PAIN, THE RISK FOR PAIN, THE IMPORTANCE OF EFFECTIVE PAIN MANAGEMENT, AND THE PAIN ASSESSMENT PROCESS?YES ADVANCE DIRECTIVE ADVANCE DIRECTIVE DISCUSSED WITH PATIENT:YES PT DOES NOT WANT INFO AT THIS TIME, DECLINES ASSISTANCE WITH PAPERWORK. HOSPITALIZATION/MAJOR DIAGNOSTIC PROCEDURE [facility] 05/2017 REVIEW OF SYSTEMS CONSTITUTIONAL: ANY RECENT FEVER NO . CHILLS NO . WEIGHT CHANGE OF UNKNOWN REASONS NO . GASTROENTEROLOGY: NEW UNEXPLAINABLE CHANGES IN BOWEL CONTROL NO . CONSTIPATION NO . GENITOURINARY: ANY NEW CHANGE IN BLADDER CONTROL? NO . NEUROLOGY: NEW ONSET DIZZINESS OR NEUROLOGICAL CHANGES NOT MENTIONED NO . NEW NUMBNESS OR PAIN PATTERNS NOT MENTIONED AND PERTINENT TO TODAY'S VISIT NO . CARDIOLOGY: NEW CHEST PRESSURE NO . NEW CHEST PAIN NO . RESPIRATORY: UNEXPLAINABLE COUGH NO . NEW SHORTNESS OF BREATH NO . VITAL SIGNS WT 165.6 LBS, HT 70", BMI 23.76 INDEX, BP 141/81 MM HG, HR 106 /MIN, RR 18 /MIN, TEMP 98.4 F, OXYGEN SAT % 96%, SAFE IN ENV? (Y/N) Y, NA INITIALS AW 0901, REVIEWED BY: EM. EXAMINATION GENERAL EXAMINATION: GENERALNO ACUTE DISTRESS, WELL NOURISHED AND HYDRATED. PSYCH AFFECT FLAT. LUNGS:CLEAR TO AUSCULTATION BILATERALLY, NO WHEEZES, RHONCHI, RALES. HEART:NO MURMURS, REGULAR RATE AND RHYTHM. MUSCULOSKELETAL:SLIGHTLY WEAK OVER LEFT LEG . LUMBAR: PALPATION: NEGATIVE FOR PAIN OVER L/S SPINE. NEGATIVE FOR PAIN OVER L/S PARSPINALS. DIAGNOSTIC TESTS REVIEWED MRI L/S SPINE 2018. 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 PROCEDURE CODES [id number] ESTABILISHED PATIENT [facility] CHARGE DISPOSITION & COMMUNICATION FOLLOW UP POST PROCEDURE (REASON: , L5-S1 LESI) ELECTRONICALLY SIGNED BY JAMA CONLEY ON 12/26/2019 AT 11:07 AM EDT DISCLAIMER : THIS IS A VISIT SUMMARY EXTRACTED FROM THE [email or web address] CHART. IT IS NOT A COPY OF THE [employer] PROGRESS NOTE. ABDIAS
== END ==
LOC: M PAIN 08:45
PROVIDERS: ATTEND Nurse Practitioner Family
DX: M51.16 Intervertebral disc disorders with radiculopathy, lumbar region (principal); Z79.899 Other long term (current) drug therapy; F17.210 Nicotine dependence, cigarettes, uncomplicated

== ENCOUNTER → 2020-01-15 | Outpatient (CLI) | payer OTHER ==
[~2020-01-15] MED LIST changes: +HYDR50TA70 PO; +IBUP-1022 PO; -ISOVUE-M 300 61% 15ML VIAL (Q9967) As Ordered; -LIDOCAINE 1% SDV INJ 30 ML VIAL As Ordered; +SERT25TA21 PO; -methylPREDNISolone SUSP 40 MG/ML (DEPO-medrol) VIAL (J1030) As Ordered
== END ==
LOC: M LABSMTC 11:20
PROVIDERS: ATTEND Anesthesiology
DX: Z11.59 Encounter for screening for other viral diseases (principal)
CPT/HCPCS: C9803; U0003

== ENCOUNTER → 2020-01-20 | Outpatient (CLI) | payer OTHER ==
[~2020-01-20] MED LIST changes: +ISOVUE-M 300 61% 15ML VIAL As Ordered ONE; +LIDOCAINE 1% SDV 30ML VIAL As Ordered ONE; +diazePAM 5 MG TAB As Ordered ONE; +methylPREDNISolone SUSP 40MG/ML 1ML VIAL (DEPO MEDROL) As Ordered ONE; +oxyCODONE 5MG TAB As Ordered ONE
--- NOTE | 2020-01-20 13:03 | REP ---
Partial lumbar spine series: Three views . History: Injection procedure for pain. 22 seconds of fluoroscopy time is reported. Findings: A sequence of three fluoroscopically obtained last image hold procedural spot radiographs of the lumbar spine document needle position and contrast injection associated with injection procedure. Electronically Signed by Horace Blevins MD 01/20/2020 12:55 P
--- NOTE | 2020-01-21 01:33 | ECWPNPC ---
PATIENT NAME: MARTIR DUNCAN : 1985 GENDER: MALE VISIT DATE: 01/20/2020 DISCHARGE DATE: 01/20/20 1201 VISIT LOCKED DATE TIME: PHYSICIAN: KAILEY IRWIN MD RESOURCE: KAILEY IRWIN MD REASON FOR APPOINTMENT 1. LESI L5-S1 HISTORY OF PRESENT ILLNESS GENERAL: -. FALL RISK SCREENING: SCREENING :NO FALLS REPORTED IN THE LAST YEAR PAIN SCREENING: PATIENT HAS A COMPLAINT OF ACUTE OR CHRONIC PAIN :YES LOCATION OF PAIN:LOW BACK, LEFT HIP INTENSITY OF PAIN (SCALE OF 1 TO 10):5 WHAT DOES YOUR PAIN FEEL LIKE:SHOOTING DURATION:CONSTANT NURSING NOTE: -. PAIN CENTER INTAKE QUESTIONS: DO YOU HAVE A HISTORY OF MRSA? :NO DO YOU TAKE A BLOOD THINNERS? :NO DO YOU HAVE ANY BLEEDING DISORDERS? :NO ANY NEW NUMBNESS OR WEAKNESS IN YOUR LEGS OR ARMS? :NO ANY PACEMAKER,DEFIBRILLATOR, OR DORSAL COLUMN STIMULATOR? :NO DO YOU HAVE ANY RASHES OR OPEN SORES? :NO ARE YOU ALLERGIC TO IV DYE? :NO ARE YOU DIABETIC? :NO ANY NEW PROBLEMS WITH YOUR MEDICATIONS? :NO HAVE YOU RECEIVED A VACCINE IN THE PAST 30 DAYS? :NO DO YOU PLAN TO RECEIVE A VACCINE IN THE NEXT 21 DAYS? :NO DO YOU TAKE ANY IMMUNOSUPPRESSIVE MEDICATIONS? :NO ANY HISTORY OF SEIZURES? :NO ANY HISTORY OF CARDIAC ISSUES OR EVENTS? :NO DO YOU HAVE SLEEP APNEA? :NO ANY RECENT HEAD INJURY? :NO DO YOU HAVE ANY NEW INFECTIONS? :NO IS THERE A CHANCE YOU COULD BE ? :NO ARE YOU BREAST FEEDING? :NO WHEN DID YOU LAST EAT? : 01/19/20 1900 WHEN DID YOU LAST DRINK? : 01/20/20 0830 WHAT DID YOU LAST DRINK? : BLACK COFFEE NAME OF PERSON DRIVING YOU HOME? : JONNY (MOTHER) DO YOU HAVE ANY OTHER QUESTIONS OR CONCERNS? : NO CURRENT MEDICATIONS TAKING CYMBALTA 60 MG CAPSULE DELAYED RELEASE PARTICLES CAPSULE ORALLY ONCE A DAY, NOTES: 7 AM TAKING ABILIFY 5 MG TABLET 1 TABLET ORALLY ONCE A DAY, NOTES: 01/18 AM TAKING IBUPROFEN 600 MG TABLET 1 TABLET WITH FOOD OR MILK NEEDED ORALLY Q8H PRN PAIN, NOTES: 01/18 AFTERNOON NOT-TAKING DOXYCYCLINE MONOHYDRATE 100 MG CAPSULE 1 CAPSULE ORALLY BID WITH FOOD AND WATER NOT-TAKING CLINDAMYCIN PHOSPHATE 1 % GEL 1 APPLICATION TO AFFECTED AREA EXTERNALLY ONCE A DAY AFTER WASHING TO FACE, NECK, JAWLINE (USE DIFFERIN TO SAME AREAS AT NIGHT) NOT-TAKING IBUPROFEN 600 MG TABLET 1 TABLET WITH FOOD OR MILK NEEDED ORALLY THREE TIMES A DAY, NOTES: DUPLICATE NOT-TAKING DOXYCYCLINE MONOHYDRATE 100 MG CAPSULE 1 CAPSULE ORALLY BID WITH FOOD AND WATER NOT-TAKING IBUPROFEN 600 MG TABLET 1 TABLET WITH FOOD OR MILK NEEDED ORALLY THREE TIMES A DAY NOT-TAKING ACAMPROSATE CALCIUM 333 MG TABLET DELAYED RELEASE 2 TABLETS ORALLY THREE TIMES A DAY NOT-TAKING HYDROXYZINE HCL 25 MG TABLET 1 TABLET NEEDED ORALLY BEFORE BEDTIME NOT-TAKING CYMBALTA 20 MG CAPSULE DELAYED RELEASE PARTICLES 2 CAPSULE ORALLY ONCE A DAY NOT-TAKING PROZAC 40 MG CAPSULE 1 CAPSULE ORALLY ONCE A DAY NOT-TAKING GABAPENTIN 300 MG CAPSULE 1 CAPSULE ORALLY TWO TIMES A DAY MEDICATION LIST REVIEWED AND RECONCILED WITH THE PATIENT PAST MEDICAL HISTORY ASTHMA ANXIETY DISORDER/ DEPRESSION ALCOHOLISM BACK PAIN CYSTS - BOILS ON NECK, JAW LINE AND BACK ALLERGIES N.K.D.A. SURGICAL HISTORY DENIES PAST SURGICAL HISTORY FAMILY HISTORY FATHER: , DIAGNOSED WITH UNSPECIFIED HEART DISEASE MOTHER: ALIVE 1 BROTHER(S) , 1 SISTER(S) . DENIES FAMILY HX OF MELANOMA AND PANCREATIC CANCER. SOCIAL HISTORY GENERAL: TOBACCO USE ARE YOU A:CURRENT SMOKER ARE YOU INTERESTED IN QUITTING?NOT READY TO QUIT COUNSELED THE PATIENT ON SMOKING EFFECTS, EDUCATION [id number]/21/2020 HOW MANY CIGARETTES A DAY DO YOU SMOKE?11-20 PATIENT COUNSELED ON THE DANGERS OF TOBACCO USE AND URGED TO QUIT:01/20/2020 LATEX QUESTIONNAIRE LATEX ALLERGY : HAVE YOU EVER DEVELOPED ANY TYPE OF REACTION AFTER HANDLING LATEX PRODUCTS SUCH RUBBER GLOVES, CONDOMS, DIAPHRAGMS, BALLOONS, SOCKS, OR UNDERWEAR?NO LATEX ALLERGY : HAVE YOU EVER DEVELOPED ANY TYPE OF REACTION DURING OR AFTER DENTAL APPOINTMENT, VAGINAL/RECTAL EXAMINATION, SURGICAL PROCEDURE, OR ANY OTHER EXPOSURE?NO LATEX RISK : HAVE YOU EVER HAD ANY DIFFICULTY BREATHING OR HIVES AFTER EATING OR HANDLING ANY FRUITS, OR VEGETABLES; SUCH KIWI, BANANAS, STONE FRUITS, OR CHESTNUTSNO LATEX RISK : DO YOU HAVE A PREVIOUS PERSONAL HISTORY OF MORE THAN NINE SURGERIES, SPINA BIFIDA, OR REPEATED CATHERIZATIONS? NO LATEX RISK : ARE YOU FREQUENTLY EXPOSED TO LATEX PRODUCTS IN YOUR OCCUPATION?NO DATE ASKED : 01/20/2020 ALCOHOL SCREENING DID YOU HAVE A DRINK CONTAINING ALCOHOL IN THE PAST YEAR?YES HOW OFTEN DID YOU HAVE SIX OR MORE DRINKS ON ONE OCCASION IN THE PAST YEAR?DAILY OR ALMOST DAILY (4 POINTS) HOW MANY DRINKS DID YOU HAVE ON A TYPICAL DAY WHEN YOU WERE DRINKING IN THE PAST YEAR?10 OR MORE (4 POINTS) HOW OFTEN DID YOU HAVE A DRINK CONTAINING ALCOHOL IN THE PAST YEAR?FOUR OR MORE TIMES A WEEK (4 POINTS) [id number] INTERPRETATIONPOSITIVE RECREATIONAL DRUG USE DRUG USE?YES HOW OFTEN AND HOW MUCH? "SMOKES WEED ABOUT ONCE A MONTH" MORMON [id number] NONE LANGUAGE LANGUAGES SPOKEN:KHMER LEARNING BARRIERS / SPECIAL NEEDS CHANGE FROM LAST VISIT? 09/18/18, 12/31/18,03/28/19 BARRIERS TO LEARNING?NO HEARING IMPAIRED?NO VISION IMPAIRED?NO COGNITIVELY IMPAIRED?NO READINESS TO LEARN?YES LEARNING PREFERENCES?NO LEARNING CAPABILITIES PRESENT?YES EMOTIONAL BARRIERS?NO BUSINESS PROCESS CONSULTANT NEEDED?NO DOMESTIC VIOLENCE STATUS:SINGLE DO YOU FEEL SAFE IN YOUR ENVIRONMENT?YES MARITAL STATUS: SINGLE. NEW PATIENT PAIN DIARY TODAY'S VISIT NOTES 09/25/2019, PATIENT DESCRIBES PAIN : SHOOTING, FROM 0-10, WHAT LEVEL IS YOUR PAIN TODAY? 2. PAIN CLINIC PFS, CLERGY, PUBLIC HEALTH REFERRALS PFS REFERRAL NEEDED?NO CLERGY REFERRAL NEEDED?NO PUBLIC HEALTH REFERRAL NEEDED?NO WAS THE PROVIDER NOTIFIED OF ANY PERTINENT INFO?YES HAS THE PATIENT BEEN EDUCATED REGARDING HIS/HER PLAN OF CARE?YES HAS THE PATIENT BEEN EDUCATED REGARDING PAIN, THE RISK FOR PAIN, THE IMPORTANCE OF EFFECTIVE PAIN MANAGEMENT, AND THE PAIN ASSESSMENT PROCESS?YES ADVANCE DIRECTIVE ADVANCE DIRECTIVE DISCUSSED WITH PATIENT:YES PT DOES NOT WANT INFO AT THIS TIME, DECLINES ASSISTANCE WITH PAPERWORK. HOSPITALIZATION/MAJOR DIAGNOSTIC PROCEDURE DETOX [facility] [place] 05/2017 VITAL SIGNS WT 159.0 LBS, HT 70", BMI 22.81 INDEX, BP 139/90 MM HG, HR 107 /MIN, RR 18 /MIN, TEMP 97.7 F, OXYGEN SAT % 99%, NA INITIALS AW 1018, REVIEWED BY: MTAbad ASSESSMENTS INTERVERTEBRAL DISC DISORDERS WITH RADICULOPATHY, LUMBOSACRAL REGION - M51.17 (PRIMARY) TREATMENT INTERVERTEBRAL DISC DISORDERS WITH RADICULOPATHY, LUMBOSACRAL REGION [facility] FLUORO GUIDE SPINE INJECTION (PAIN)[id number] PROCEDURES PAIN NURSING RECORD PRE-PROCEDURE IV SITE N/A, PRE-PROCEDURE ORAL MEDICATIONS YES; 10MG OXYCODONE LOT# [id number] EXP: 08/2021 VALIUM 10MG LOT# [id number] EXP: 08/22, ADMINSTERED AT 1057. PROCEDURE IN ROOM 1105, PHYSICIAN IN ROOM 1117, START 1126, STEROID DEPOMEDROL, O2 RA, ECG NORMAL SINUS, PATIENT SHIELDED YES, SAFETY STRAP YES, PREP LE ESPINOSA RN, IV INFUSED N/A, DRESSING TEGADERM LOC: IN ROOM 1105, PHYSICIAN IN ROOM 1117, START 1126, STEROID DEPOMEDROL, O2 RA, ECG NORMAL SINUS, PATIENT SHIELDED YES, SAFETY STRAP YES, PREP BETADINE Adrian ESPINOSA RN, IV INFUSED N/A, DRESSING TEGADERM RESP: [place] 01/20/2020 11:11:41 AM > , 1. REGULAR, NO DYSPNEA COLOR: [place] 01/20/2020 11:11:48 AM > , 1. PINK SKIN: [place] 01/20/2020 11:11:57 AM > , 1. WARM, DRY POSITION: [place] 01/20/2020 11:12:09 AM > , 1. PRONE VITALS: [place] 01/20/2020 11:12:16 AM > 169/84, 94, 16, 99% RA [place] 01/20/2020 11:27:07 AM > 156/79, 97, 16 99% RA [place] 01/20/2020 11:44:02 AM > POST PROCEDURE 156/95, 99, 16, 98% RA DISCHARGE: POST PAIN 2/10, DRESSING SITE DRY AND INTACT, IV N/A, GAIT STEADY, TEACHING COMPLETED, PATIENT ACKNOWLEDGES UNDERSTANDING YES, PATIENT DISCHARGED AT 1147 PRE PROCEDURE DIAGNOSIS LUMBOSACRAL DISC DISORDER WITH RADICULOPATHY POST PROCEDURE DIAGNOSIS LUMBOSACRAL DISC DISORDER WITH RADICULOPATHY PROCEDURE LUMBAR EPIDURAL STEROID INJECTION UNDER FLUOROSCOPIC GUIDANCE SURGEON DR. KAILEY IRWIN PRINTED CIRCUIT BOARD PANELS TRIMMER NONE ANESTHESIA LOCAL PRE PROCEDURE NOTE THE PATIENT HAS A HISTORY OF CHRONIC LOW BACK PAIN. I EVALUATED THE PATIENT AND REVIEWED THE CHART. I WENT OVER THE RISKS, ALTERNATIVES, AND BENEFITS ASSOCIATED WITH THIS PROCEDURE. I DISCUSSED THAT THE USE OF STEROIDS MAY CONTRIBUTE TO IMMUNOSUPPRESSION OF THE PATIENT'S BODY AGAINST INFECTIONS SUCH COVID-19. THE PATIENT IS AWARE OF THE POTENTIAL COMPLICATIONS ASSOCIATED WITH THIS VIRUS, INCLUDING, BUT NOT LIMITED TO, . I DISCUSSED THE USE OF DEXAMETHASONE INSTEAD OF DEPO-MEDROL; HOWEVER, THE PATIENT WOULD LIKE TO MOVE FORWARD WITH DEPO-MEDROL. THE PATIENT WOULD LIKE TO PROCEED AND GIVE CONSENT TO PERFORMED THE PROCEDURE. THE PATIENT DENIES UNEXPLAINABLE WEIGHT LOSS, FEVER, CHILLS, OR NEW CHANGES IN URINARY OR BOWEL CONTROL. THE PATIENT IS COVID-19 NEGATIVE DESCRIPTION OF PROCEDURE THE PATIENT WAS BROUGHT TO THE PROCEDURE ROOM AND PLACED IN THE PRONE POSITION. THE LUMBOSACRAL AREA WAS CLEANED WITH BETADINE SOLUTION AND DRAPED ASEPTICALLY. THE PROCEDURE WAS DONE UNDER STERILE CONDITIONS. A TIMEOUT WAS PERFORMED WHERE LATERALITY AND THE SITE OF THE PROCEDURE WERE CHECKED AND CONFIRMED WITH EVERYONE IN THE ROOM. UNDER FLUOROSCOPIC GUIDANCE, THE TARGET POINT WAS SELECTED AT THE INTERLAMINAR LEVEL OF L5-S1. LIDOCAINE WAS USED TO NUMB THE SKIN AND THE SUBCUTANEOUS TISSUE BELOW IT. EPIDURAL TUOHY NEEDLE, 17-GAUGE, WAS ADVANCED UNDER FLUOROSCOPIC GUIDANCE AND FOLLOWING PATIENT FEEDBACK UNTIL THE EPIDURAL SPACE WAS REACHED 5 CM DEEP INTO THE SKIN BY THE LOSS OF RESISTANCE TECHNIQUE. ISOVUE-M DYE 30%, 0.25 ML, WAS INJECTED SHOWING ADEQUATE SPREAD OF THE DYE. THEN, A SOLUTION OF 3 ML OF NORMAL SALINE WITH DEPO-MEDROL 80 MG WAS INJECTED SLOWLY FOLLOWING PATIENT FEEDBACK. THE MEDICATIONS WERE VERIFIED WITH THE NURSE. THERE WAS NO EVIDENCE OF BLOOD, PARESTHESIA OR CEREBROSPINAL FLUID DURING THE PROCEDURE. THE PATIENT WAS SENT TO THE RECOVERY ROOM. THE PATIENT WAS MOVING THE EXTREMITIES AND DOING WELL. THERE WERE NO COMPLICATIONS DURING THE PROCEDURE. ESTIMATED BLOOD LOSS WAS LESS THAN 5 ML. FLUOROSCOPY TIME WAS 22 SECONDS POST PROCEDURE NOTE I SPOKE WITH THE PATIENT ABOUT POSSIBLY USING IV SEDATION NEXT TIME AND TO TALK WITH THE NURSE PRACTITIONER ABOUT IT IF HE WOULD LIKE TO MOVE FORWARD WITH IT. THE PATIENT WILL BE SEEN IN A FOLLOW UP IN THE NEXT FEW WEEKS. I AM LOOKING FOR LONG LASTING RELIEF FOR THE PATIENT WITH THIS INTERVENTION. INSTRUCTIONS WERE GIVEN, QUESTIONS WERE ANSWERED, AND THE PATIENT EXPRESSED UNDERSTANDING AND AGREES WITH THE PLAN. THE PATIENT IS AWARE TO STAY HOME FOR THE NEXT WEEK, IF POSSIBLE, DUE TO COVID-19. I, AURELIA MARTINEZ, DOCUMENTED THE ABOVE INFORMATION ACTING A SCRIBE FOR DR. IRWIN. I HAVE REVIEWED THE ABOVE DOCUMENT, WRITTEN BY AURELIA MARTINEZ, SOFT TILE SETTER, AND I VERIFY THAT IT IS ACCURATE PROCEDURE CODES 04728 LUMBAR/SACRAL W/ IMAGING DISPOSITION & COMMUNICATION FOLLOW UP F/UP WITH BOW MAKER GIFT WRAPPING (REASON: POST LESI L5-S1) ELECTRONICALLY SIGNED BY KAILEY IRWIN MD, MD ON 01/20/2020 AT 05:00 PM EDT DISCLAIMER : THIS IS A VISIT SUMMARY EXTRACTED FROM THE [employer] CHART. IT IS NOT A COPY OF THE [employer] PROGRESS NOTE. ABDIAS
== END ==
LOC: M PAIN 10:00
PROVIDERS: ATTEND Anesthesiology
DX: M51.17 Intervertebral disc disorders with radiculopathy, lumbosacral region (principal)
CPT/HCPCS: 62323; J1030; Q9967

== ENCOUNTER → 2020-02-04 | Outpatient (POV) | payer OTHER ==
[~2020-02-04] MED LIST changes: -ISOVUE-M 300 61% 15ML VIAL As Ordered ONE; -LIDOCAINE 1% SDV 30ML VIAL As Ordered ONE; -diazePAM 5 MG TAB As Ordered ONE; -methylPREDNISolone SUSP 40MG/ML 1ML VIAL (DEPO MEDROL) As Ordered ONE; -oxyCODONE 5MG TAB As Ordered ONE
== END ==
LOC: M PAIN 09:00
PROVIDERS: ATTEND Nurse Practitioner Family
DX: M51.27 Other intervertebral disc displacement, lumbosacral region (principal)

== ENCOUNTER → 2020-02-05 | Emergency (ER) | payer OTHER ==
[2020-03-05 22:43] LABS: BASO % 0.6 % (0.0-1.0); EOS # 0.1 10^3/uL (0.0-0.5); EOS % 1.7 % (0.0-3.0); HEMATOCRIT 43.9 % (42.0-52.0); LYMPH # 2.3 10^3/uL (1.5-5.0); LYMPH % 34.7 % (24.0-44.0); MEAN CORPUSCULAR HGB CONC 34.2 g/dl (32.0-36.5); MEAN CORPUSCULAR VOLUME 96.7 fl (80.0-96.0); MONO # 0.7 10^3/uL (0.0-0.8); MONO % 10.3 % (0.0-5.0); NEUTROPHILS # 3.4 10^3/uL (1.5-8.5); NEUTROPHILS % 52.4 % (36.0-66.0); PLATELET COUNT, AUTOMATED 212 10^3/uL (150-450); RED BLOOD COUNT 4.54 10^6/uL (4.30-6.10); WHITE BLOOD COUNT 6.5 10^3/uL (4.0-10.0)
[2020-03-21 11:15] LABS: ACETAMINOPHEN LEVEL < 2.0 UG/ML (10.0-30.0); ALBUMIN 3.9 GM/DL (3.2-5.2); ALT/SGPT 22 U/L (12-78); AMPHETAMINES LEVEL URINE NEGATIVE (NEGATIVE); BARBITURATES URINE NEGATIVE (NEGATIVE); BENZODIAZEPINES URINE POSITIVE (NEGATIVE); BILIRUBIN,TOTAL 0.2 MG/DL (0.2-1.0); BLOOD UREA NITROGEN 8 MG/DL (7-18); CALCIUM LEVEL 8.8 MG/DL (8.5-10.1); CANNABINOIDS URINE NEGATIVE (NEGATIVE); CARBON DIOXIDE LEVEL 29 MEQ/L (21-32); CHLORIDE LEVEL 111 MEQ/L (98-107); COCAINE METABOLITE URINE NEGATIVE (NEGATIVE); CREATININE FOR GFR 0.86 MG/DL (0.70-1.30); ETHYL ALCOHOL (ETHANOL) 0.199 % (0.000-0.010); GLOMERULAR FILTRATION RATE > 60.0 (>60); GLUCOSE, FASTING 90 MG/DL (70-100); METHADONE URINE NEGATIVE (NEGATIVE); OPIATES URINE NEGATIVE (NEGATIVE); PHENCYCLIDINE URINE NEGATIVE (NEGATIVE); SODIUM LEVEL 142 MEQ/L (136-145); THYROID STIMULATING HORMONE 0.709 uIU/ML (0.358-3.740); TOTAL PROTEIN 7.2 GM/DL (6.4-8.2)
== END | disposition home or self-care (01) ==
LOC: M ED 20:57
DX: R45.851 Suicidal ideations (principal); F10.129 Alcohol abuse with intoxication, unspecified; F33.9 Major depressive disorder, recurrent, unspecified
CPT/HCPCS: 36415; 80053; 80307; 84443; 85025; 99284; G0480

== ENCOUNTER 2020-04-10 22:05 | Inpatient (IN) | payer OTHER ==
[~2020-04-10] VITALS: Ht 177.8 cm; Wt 70.5 kg
[2020-04-10] MEDS ORDERED: IBUP-1022 PO (22:16)
[2020-04-10 23:15] LABS: HEMATOCRIT 42.1 % (42.0-52.0); HEMOGLOBIN 13.9 g/dl (13.5-17.5); MEAN CORPUSCULAR HEMOGLOBIN 31.2 pg (27.0-33.0); MEAN CORPUSCULAR VOLUME 94.6 fl (80.0-96.0); PLATELET COUNT, AUTOMATED 215 10^3/uL (150-450); RED BLOOD COUNT 4.45 10^6/uL (4.30-6.10); WHITE BLOOD COUNT 12.6 10^3/uL (4.0-10.0)
[2020-04-10 23:37] LABS: AMPHETAMINES LEVEL URINE NEGATIVE (NEGATIVE); BARBITURATES URINE NEGATIVE (NEGATIVE); BENZODIAZEPINES URINE NEGATIVE (NEGATIVE); CANNABINOIDS URINE NEGATIVE (NEGATIVE); COCAINE METABOLITE URINE NEGATIVE (NEGATIVE); METHADONE URINE NEGATIVE (NEGATIVE); OPIATES URINE NEGATIVE (NEGATIVE); PHENCYCLIDINE URINE NEGATIVE (NEGATIVE)
[2020-04-10 23:45] LABS: ACETAMINOPHEN LEVEL < 2.0 UG/ML (10.0-30.0); ALBUMIN 3.8 GM/DL (3.2-5.2); ALT/SGPT 11 U/L (12-78); BILIRUBIN,DIRECT < 0.1 MG/DL (0.0-0.2); BILIRUBIN,TOTAL 0.2 MG/DL (0.2-1.0); BLOOD UREA NITROGEN 8 MG/DL (7-18); CALCIUM LEVEL 8.2 MG/DL (8.5-10.1); CARBON DIOXIDE LEVEL 25 MEQ/L (21-32); CHLORIDE LEVEL 112 MEQ/L (98-107); CPK CREATINE PHOSPHOKINASE 93 U/L (39-308); CREATININE FOR GFR 0.97 MG/DL (0.70-1.30); ETHYL ALCOHOL (ETHANOL) 0.272 % (0.000-0.010); GLOMERULAR FILTRATION RATE > 60.0 (>60); GLUCOSE, FASTING 90 MG/DL (70-100); POTASSIUM SERUM 3.7 MEQ/L (3.5-5.1); SALICYLATE LEVEL 4.2 MG/DL (5.0-30.0); SODIUM LEVEL 145 MEQ/L (136-145); THYROID STIMULATING HORMONE 0.892 uIU/ML (0.358-3.740); TOTAL PROTEIN 6.7 GM/DL (6.4-8.2)
[2020-04-11] MEDS ORDERED: LORazepam 2 MG TAB PO PRN (00:15)
--- NOTE | 2020-04-11 13:17 | ECGEPIP ---
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
[2020-04-12] MEDS ORDERED: LORazepam 2 MG TAB PO STA (17:14)
[2020-04-13] MEDS ORDERED: LORazepam 2 MG TAB PO STA (06:07)
[2020-04-13] MEDS ORDERED: LORazepam 2 MG TAB As Ordered ONE (06:30)
[2020-04-13] MEDS ORDERED: MOM 30ML SUSPENSION UDC PO PRN (12:45)
[2020-04-13] MEDS ORDERED: ACETAMINOPHEN TAB 650MG DOSE (2X325MG) PO PRN (12:45)
[2020-04-13] MEDS ORDERED: MAALOX 30 ML SUSP *UDC PO PRN (12:45)
[2020-04-13 14:40] VITALS: BP 136/83
[2020-04-13 14:41] VITALS: BP 136/83
[2020-04-13] MEDS ORDERED: LORazepam 2 MG TAB PO PRN (15:00)
[2020-04-13] MEDS: NICOTINE 21MG/24HR 1 EA TRANSDERMAL TD SCH (15:10)
[2020-04-13] MEDS: THIAMINE 100 MG TAB PO SCH ×2 (15:11→20:22)
[2020-04-13] MEDS: traZODone 50 MG TAB PO PRN (20:22)
[2020-04-14 06:00] VITALS: BP 148/80
[2020-04-14 06:29] VITALS: BP 148/80
[2020-04-14] MEDS: NICOTINE 21MG/24HR 1 EA TRANSDERMAL TD SCH (08:40)
[2020-04-14] MEDS: THIAMINE 100 MG TAB PO SCH (08:40)
[2020-04-14] MEDS ORDERED: MULTIVITAMINS/MINERALS THERAP 1 TAB PO SCH (09:00)
[2020-04-14] MEDS ORDERED: FOLIC ACID 1 MG TAB PO SCH (09:00)
[2020-04-14 16:54] VITALS: BP 122/72
--- NOTE | 2020-04-14 16:58 | MHHPEPDOC ---
General Date Of Admission: Apr 13, 2020 Legal Status: 9.39 Chief Complaint "I guess I am here because of being drunk and making suicidal threats I guess." History of Present Illness HISTORY OF THE PRESENT ILLNESS: Patient is a 35 -year-old Single, Employed, Domiciled,, male, who was brought to [facility] on a 9.41 after his friend/neighbor called and reported that he attempted suicide recently. He reported that he had taken an overdose of two bottles of antidepressant and also put a vacuum janitorial cleaner in the bathtub with him. He on this occasion reported that he tried putting another electrical object in the bathtub with him. Psychiatric Review of Systems Depression (2 or more weeks): depressed mood, insomnia/hypersomnia (decreased sleep, doesn't feel rested, feels tired and has low energy), feelings of excess/guilt, feelings of worthlesness, decreased energy, suicidal thoughts Bonnie (4 or more days of): denies Psychosis: denies PTSD: denies Anxiety: gen/non-specific anxiety, stressor related anxiety Anxiety/ 6 months or more of: restlessness, keyed up, easily fatigued, other (social anxiety around other people) Past Psychiatric History Previous Psychiatric Diagnosis: depression and anxiety Previous Psychiatric Admissions: this is his first Suicide Attempts: took an overdose of medications (Cymbalta and Abilify), also tried throwing a vacuum janitorial cleaner in the tub with him it "it shut off with it hit the water" both of these events occurred a month ago Psychiatric Follow-up: Is seen at [facility] Psychiatric medications: Reports having been trialed on many medications. Last prescribed medications were Cymbalta and Abilify and later in the conversation patient reports that he has been on other SSRIs but can't remember the names. . Past Medical History Medical Problems Herniated Discs Head Injury: No Seizures: No Hospitalizations: No Surgeries: No Family Medical/Psychiatric HX Medical Problems Paternal grandmother with "menta health issues" Uncle suicided Sister with ETOH history Maternal Uncle ETOH history Maternal Side - Lung cancer Psychiatric Disorders: Yes Addiction: Yes Suicide Attemps/Completions: Yes Addiction History nicotine (1 ppd), alcohol (15-20 beers daily), cocaine, methamphetamines (tried it), heroin (tried it), other (history of suboxone that he was buying from the street, also cannabis use couple of hits occasionally) Social History Childhood: Born in [place] to both parents, They when he was 10 years old. He has an older brother and sister. When he is sober he talks with his brother, when he is drinking he talks to his sister Abuse/Trauma: Denies Current Living Situation: Living alone in an apartment Education: Dropped out of High School in 12th grade Employment: Works at [employer] works part-time but has about 32-36 hours per week Stressors: "Myself, Other People, Responsibilities" Social Support: "[employer] Supportive Housing, 12-Step AA/Sponsor, Boss and My Co- Workers" Legal: Vishal Lobo, had done fci time, no current issues : None Marital: Single. Mental Status Examination General Appearance: well groomed, appears stated age, hospital scubs/clothing Build: thin Demeanor: withdrawn Eye Contact: average Behavior: cooperative, withdrawn Speech: clear Mood: depressed Affect: constricted Thought Process: logical/linear Thought Content (Delusions): none reported Thought Content (Other): none reported Thought Content (Aggressive): none reported Perception (Hallucinations): none reported Perception (Other): none reported Cognition (Impairment of): none reported Cognition(Intelligence Est.): average Oriented: Awake, Alert, Oriented times three Insight: fair Judgment: Fair Diagnoses Major Depressive Disorder, Single Episode, Moderate Alcohol Use Disorder Alcohol Induced Depressive Disorder Alcohol Intoxication Tobacco Use Disorder Cannabis Use Disorder A-FIB/CHADSVASC A-FIB History Current/History of A-Fib/PAF?: No Current PO Anticoag Therapy: No Age/Risk Factor Scoring CHADSVASC: CHADSVASC Response (Comments) Value Age Risk Factor Age < 65 years old 0 Gender Risk Factor Male 0 Hx of CHF No 0 Hx of HTN No 0 Hx of Stroke/TIA/or VTE No 0 Hx of Diabetes No 0 Hx of Vascular Disease No 0 Total 0 Treatment Treatment ordered: NONE Assessment Patient appears quite dysphoric reporting a short episode of sobriety x 1 week and started drinking on Sunday. currently not suicidal but is disengaged with the idea of medications. Wants to return to the 12-Step Program which he states worked for him for 2 years, allowed him 2 years of sobriety. He did not feel that Cymbalta and Abilify helped him and states "I have been on everything" Patient to start on Zoloft 25 mg and Hydroxyzine 50 mg PRN q 6hrs for anxiety. Initial Treatment Plan 1. Patient was admitted on a [9.39] status. 2. Complete history was obtained. 3. With patients permission, family will be contacted and database will be e xpanded. 4. Patients medication regimen will be reviewed and changed accordingly. 5. Patient will be provided with protected environment. 6. Patient will be treated with individual, group, and milieu therapies. 7. Patient will receive supportive psych-education. 8. Discharge planning will commence immediately. 9. Outpatient follow-up treatment will be strongly recommended. 10. The initial treatment plan will focus initially on: * Depression. * Risk for suicide. ESTIMATED LENGTH OF STAY: 5-7 DAYS. TIME SPENT COUNSELING AND COORDINATING INITIAL CARE: 45 minutes. Vital Signs Vital Signs Date Time Temp Pulse Resp B/P (MAP) Pulse Ox O2 Delivery O2 Flow Rate FiO2 04/14/20 06:29 98.6 74 16 148/80 (102) 04/13/20 14:40 100 Room Air Medications Scheduled PRN Ibuprofen (Ibuprofen) 600 Mg Tablet, 600 MG PO TID PRN for PAIN, (Reported) Allergies Coded Allergies: No Known Allergies (Unverified , 04/10/20) VITO OSWALD NP Apr 14, 2020 11:20
--- NOTE | 2020-04-14 17:14 | HPEPDOC ---
General Date of Admission Apr 13, 2020 at 12:43 Date of Service: Apr 14, 2020 Attending Physician: MERRY COLMENARES MD Chief Complaint The patient is a 35-year-old male admitted with a reason for visit of Unspecified Depressive Disorder. Source: RN/MD Exam Limitations: No limitations History of Present Illness 35 yo M with a history of depression, anxiety, chronic back pain and alcohol use disorder with episodic binge drinking, who had been sober for 2 years but recently relapsed and reports that he feels very depressed when he drinks, who was brought in by police after a friend called the police out of concern for suicide attempt. He reported a recent attempt with pills and later getting into the bathtub with a vacuum venetian blind cleaner with the intention to start it to electrocute himself. On this occasion he reported to police having entered the bathtub with something he would not reveal and acknowledged suicidality and was brought to the ED. In the ED, he was intoxicated with an elevated alcohol level, with an otherwise normal CBC and BMP. He was [facility] to the [facility] for depression and suicidal ideation with suicidal gestures and was placed on CIWA for potential withdrawal. Medicine is now consulted for medical evaluation during which he denies any recent fever, chills, chest pain, palpitations. Home Medications Scheduled PRN Ibuprofen (Ibuprofen) 600 Mg Tablet, 600 MG PO TID PRN for PAIN, (Reported) Allergies Coded Allergies: No Known Allergies (Unverified , 04/10/20) Past Medical History Medical History Depression Family History Significant Family History: No pertinent family hx Social History * Smoker: Denies Alcohol: heavy (episodic, weekly) Recent Travel/Sick Contacts: Reports: Recent travel Psychosocial History: Anxiety, Decreased mood, Depression A-FIB/CHADSVASC A-FIB History Current/History of A-Fib/PAF?: No Current PO Anticoag Therapy: No Age/Risk Factor Scoring CHADSVASC: CHADSVASC Response (Comments) Value Age Risk Factor Age < 65 years old 0 Gender Risk Factor Male 0 Hx of CHF No 0 Hx of HTN No 0 Hx of Stroke/TIA/or VTE No 0 Hx of Diabetes No 0 Hx of Vascular Disease No 0 Total 0 Treatment Treatment ordered: NONE Reason Anticoagulant not given: Not indicated/[id number] Review of Systems Constitutional: Denies: Chills, Fever, Night Sweats Eyes: Denies: Pain, Vision change ENT: Denies: Head Aches, Ear Pain, Dysphagia Skin: Denies: Rash, Lesions, Breakdown Pulmonary: Denies: Dyspnea, Cough Cardiovascular: Denies: Chest Pain, Palpitations, Orthopnea, Paroxysmal Noc. Dyspnea, Lt Headedness Gastrointestinal: Denies: Nausea, Vomiting, Abdominal Pain, Diarrhea Genitourinary: Denies: Dysuria, Frequency, Incontinence, Retention Hematologic: Denies: Bruising, Bleeding Excessively Endocrine: Denies: Polydipsia, Polyphagia, Polyuria, Heat Intolerance, Cold Intolerance, Other Endocrine Sx Musculoskeletal: Denies: Neck Pain, Back Pain, Joint Pain, Muscle Pain, Spasms Neurological: Denies: Weakness, Numbness, Change in speech, Confusion Psych: Reports: Depression; Denies: Mood Normal, Memory Issues Physical Examination General Exam: Positive: Alert, No Acute Distress Eye Exam: Positive: PERRLA, Conjunctiva & lids normal, EOMI; Negative: Sclera icteric ENT Exam: Positive: Atraumatic, Mucous membr. moist/pink, Pharynx Normal Neck Exam: Positive: Supple; Negative: JVD, thyromegaly Chest Exam: Positive: Clear to auscultation, Normal air movement Heart Exam: Positive: Rate Normal, Regular Rhythm, Normal S1, Normal S2; Negative: Murmurs, Rubs Abdomen Exam: Positive: Normal bowel sounds, Soft; Negative: Tenderness, Hepatospenomegaly Extremity Exam: Positive: Normal pulses; Negative: Clubbing, Cyanosis, Edema Skin Exam: Positive: Nl turgor and temperature; Negative: Breakdown, Lesion Neuro Exam: Positive: Normal Gait, Normal Speech, Cranial Nerves 3-12 NL, Reflexes 2+ Psych Exam: Positive: Oriented x 3; Negative: Mood NL (depressed with flat affect) Vital Signs Vital Signs Date Time Temp Pulse Resp B/P (MAP) Pulse Ox O2 Delivery O2 Flow Rate FiO2 04/14/20 06:29 98.6 74 16 148/80 (102) 04/13/20 14:40 100 Room Air Assessment/Plan 35 yo M with a history of depression, anxiety, chronic back pain and alcohol use disorder with episodic binge drinking, who had been sober for 2 years but recently relapsed and reports that he feels very depressed when he drinks, who was brought in by police after a friend called the police out of concern for suicide attempt confirming a suicide gesture and depression while intoxicated. Depression and suicidal ideation with gesture -Plan per primary psych team Alcohol use disorder with episodic binge drinking -currently on CIWA protocol with symptom triggered PRN benzo therapy -thiamine, folate, multivitamin DVT ppx: ambulatory Medicine will sign off at this time. Plan / VTE VTE Prophylaxis Ordered?: No VTE Exclusion Mechanical Proph: Low Risk for VTE VTE Exclusion Pharmacological: At Low Risk for VTE MERRY COLMENARES MD Apr 14, 2020 16:04
[2020-04-14] MEDS: traZODone 50 MG TAB PO PRN (20:10)
[2020-04-14] MEDS: SERTRALINE HCL 25 MG TABLET PO SCH (20:10)
[2020-04-14] MEDS: hydrOXYzine 50 MG TAB PO SCH (20:10)
[2020-04-15 06:29] VITALS: BP 142/85
[2020-04-15] MEDS: hydrOXYzine 50 MG TAB PO SCH ×2 (08:12→20:00)
[2020-04-15] MEDS: NICOTINE 21MG/24HR 1 EA TRANSDERMAL TD SCH (08:12)
[2020-04-15] MEDS ORDERED: HYDR50TA70 PO (13:12)
[2020-04-15] MEDS ORDERED: SERT25TA21 PO (13:12)
--- NOTE | 2020-04-15 15:41 | MHIPNPDOC ---
[facility] Progress Note Progress Note DATE OF SERVICE: 04/15/20 HISTORY: Patient is a 35 -year-old Single, Employed, Domiciled,, male, who was brought to [facility] on a 9.41 after his friend/neighbor called and reported that he attempted suicide recently. He reported that he had taken an overdose of two bottles of antidepressant and also put a vacuum latrine cleaner in the bathtub with him. He on this occasion reported that he tried putting another electrical object in the bathtub with him. VITAL SIGNS: See below. NEW TEST RESULTS: CURRENT MEDICATIONS: See below. MENTAL STATUS EXAMINATION: Patient is a 35-year old Single, Employed, Domiciled, male, who is admitted to [facility] after making suicidal statements about having had suicide attempts by electrocution and overdose. In today's interview he is calm and online marketing coordinator perative, has a mildly improved affect. He is dressed in hospital scrubs and his hygiene and grooming is fair. His eye contact is fleeting. Speech: Is normal rate, tone and volume Language skills are intact Thought processes including: linear and goal oriented Thought content: denies depression, suicidal/homicidal ideation, planning or intent. He is not anxious, denies abnormal psychotic symptoms Abstract reasoning, and computation: Fair Description of associations: None notes, patient denies Description of abnormal or psychotic thoughts: None notes, patient denies Judgment: fair Insight: fair Orientation: alert and oriented to persona, place, time and situation Recent and remote memory: intact Attention span and concentration: fair Language: expansive Fund of knowledge: good Mood: " I am doing better Affect: mildly brighter DIAGNOSES: 1. Major Depressive Disorder, Single Episode, Moderate 2. Alcohol Use Disorder 3. Alcohol Induced Depressive Disorder 4. Alcohol Intoxication 5. Tobacco Use Disorder 6. Cannabis Use Disorder ASSESSMENT: Patient reporting decreased depression, rates depression and anxiety 10/09. He denies suicidality/homicidality. He appeared to have a mildly brighter affect but I suspect that he has a dysphoric affect most of the time as he reported himself to be flat affected most of the time. Patient states "I am only suicidal when I am drinking", currently denying suicidal ideation. Explained to patient that I feel that he is improved but worry about him being discharged before the weekend. Patient states that he has access to more AA meeting on the weekends and that he will get in contact with his sponsor. He states that he has good supports and will utilize them. Patient is concerned with the Zoloft and Hydroxyzine. I reviewed with the patient these medications again (indications, dose, time, route, frequency) and reinforced with him that these are low dosages. I also suggested that he should not be taking these medications with alcohol. He is concerned that he will not have the same therapists at [facility] where he is seen 5 xs per week. MANAGEMENT PLAN: Patient to be discharged to home tomorrow. Orders are placed into the system. Medications were electronically sent to [facility] per patient's request. TIME SPENT: 25 minutes. Vital Signs Vital Signs Date Time Temp Pulse Resp B/P (MAP) Pulse Ox O2 Delivery O2 Flow Rate FiO2 04/15/20 06:29 99.8 74 16 142/85 (104) 04/13/20 14:40 100 Room Air Current Medications Current Medications Medications (Trade) Dose Ordered Sig/Jules Route PRN Reason Start Time Stop Time Status Last Admin Dose Admin Acetaminophen (Tylenol Tab) 650 mg Q6HP PRN PO HEADACHE or DISCOMFORT 04/13/20 12:45 Al Hydrox/Mg Hydrox/Simethicone (Mylanta) 30 ml Q4HP PRN PO HEARTBURN/INDIGESTION 04/13/20 12:45 Folic Acid (Folic Acid) 1 mg DAILY PO 04/14/20 09:00 04/14/20 21:28 DC 04/14/20 08:40 Home Med (Med Rec Complete!) ASDIRECTED XX 04/11/20 10:00 04/11/20 10:00 DC Hydroxyzine HCl (Atarax) 50 mg BID PO 04/14/20 21:00 04/15/20 08:12 Lorazepam (Ativan) 2 mg ASDIRECTED PRN PO SEE PROTOCOL 04/11/20 00:15 04/12/20 07:00 DC Lorazepam (Ativan) 2 mg ASDIRECTED PRN PO SEE PROTOCOL 04/13/20 15:00 Cancel Lorazepam (Ativan) 2 mg STAT STAT PO 04/12/20 17:14 04/12/20 17:15 DC 04/12/20 17:35 Lorazepam (Ativan) 2 mg STAT STAT PO 04/13/20 06:07 04/13/20 06:09 DC 04/13/20 06:33 Magnesium Hydroxide (Milk Of Magnesia) 30 ml DAILYPRN PRN PO CONSTIPATION 04/13/20 12:45 Multivitamins (Theragram-M) 1 tab DAILY PO 04/14/20 09:00 04/14/20 21:28 DC 04/14/20 08:40 Nicotine (Nicoderm Cq 21mg) 1 patch DAILY TD 04/13/20 15:00 04/15/20 08:12 Sertraline HCl (Zoloft) 25 mg QHS PO 04/14/20 21:00 04/14/20 20:10 Thiamine HCl (Thiamine HCl) 100 mg BID PO 04/13/20 09:00 04/14/20 09:01 DC 04/14/20 08:40 Trazodone HCl (Desyrel) 50 mg QHSP PRN PO INSOMNIA 04/13/20 12:45 04/14/20 20:10 Allergies Coded Allergies: No Known Allergies (Unverified , 04/10/20) VITO OSWALD NP Apr 15, 2020 15:20
[2020-04-15] MEDS: SERTRALINE HCL 25 MG TABLET PO SCH (20:00)
[2020-04-15] MEDS: traZODone 50 MG TAB PO PRN (20:00)
[2020-04-16 07:33] VITALS: BP 116/78
[2020-04-16] MEDS: NICOTINE 21MG/24HR 1 EA TRANSDERMAL TD SCH (08:29)
[2020-04-16] MEDS: hydrOXYzine 50 MG TAB PO SCH (08:29)
--- NOTE | 2020-04-16 08:29 | MHDSPDOC ---
[facility] Discharge Summary Discharge Summary DATE OF ADMISSION: Apr 13, 2020 at 12:43 DATE OF DISCHARGE: April 16, 2020 0803 DISCHARGE DIAGNOSES: 1. Major Depressive Disorder, Single Episode, Moderate 2. Alcohol Use Disorder 3. Alcohol Induced Depressive Disorder 4. Alcohol Intoxication 5. Tobacco Use Disorder 6. Cannabis Use Disorder REASON FOR ADMISSION: Patient is a 35 -year-old Single, Employed, Domiciled,, male, who was brought to [facility] on a 9.41 after his friend/neighbor called and reported that he attempted suicide recently. He reported that he had taken an overdose of two bottles of antidepressant and also put a vacuum cleaner and presser in the bathtub with him. He on this occasion reported that he tried putting another electrical object in the bathtub with him. CONSULTANTS INVOLVED: See Medical Consultation by Medical Provider TREATMENT AND PROGRESS ON THE UNIT : Patient was admitted to the [facility] on a 9.39 legal status he was afforded the following treatment modalities: 1) Individual Therapy 2) Group Therapy 3) Medication Management 4) Milieu Therapy 5) Safe Environment HOSPITAL COURSE: Patient was reluctant to start medications and stated that he is only depressed when he is drinking. On initial interview, patient had reported several depressive symptoms that pointed to positive diagnosis of Major Depressive Disorder, low dose Zoloft 25 mg daily started and Hydroxyzine 50 mg twice daily. DISCHARGE ASSESSMENT: States that he is past the physical withdrawal, and did not experience alcohol withdrawal while on the unit. States that for him, alcohol is all or nothing. He says that he can't just have a couple. states he over the past few years had stopped enjoying alcohol and drinks because he wanted to feel like he did when he first drank with his sister. He states that in order for him to able to not be suicidal, he needs to stop drinking. He reports 2 year sobriety that ended August of this year. He is currently denying suicidal ideation, feels remorseful about his suicidal thoughts while drinkin MENTAL STATUS EXAMINATION ON DISCHARGE: Patient is a 35-year old Single, Employed, Domiciled, male, who is admitted to [facility] after making suicidal statements about having had suicide attempts by electrocution and overdose. In today's interview he is calm and cooperative, has a mildly improved affect. He is dressed in hospital scrubs and his hygiene and grooming is fair. His eye contact is fleeting. Speech: Is normal rate, tone and volume Language skills are intact Thought processes including: linear and goal oriented Thought content: denies depression, suicidal/homicidal ideation, planning or intent. He is not anxious, denies abnormal psychotic symptoms Abstract reasoning, and computation: Fair Description of associations: None notes, patient denies Description of abnormal or psychotic thoughts: None notes, patient denies Judgment: fair Insight: fair Orientation: alert and oriented to persona, place, time and situation Recent and remote memory: intact Attention span and concentration: fair Language: expansive Fund of knowledge: good Mood: " I am doing better Affect: mildly brighter MEDICATIONS ON DISCHARGE: See medication reconciliation PLAN/FOLLOWUP ARRANGEMENTS: Patient is seen at [facility] five times a week, will start AA meetings again and promises to call his sponse The amount of time spent in the coordination of care for this patient was approximately 25 minutes. HISTORY: VITAL SIGNS: See below. NEW TEST RESULTS: CURRENT MEDICATIONS: See below. MENTAL STATUS EXAMINATION: DIAGNOSES: ASSESSMENT: Patient reporting decreased depression, rates depression and anxiety 10/09. He denies suicidality/homicidality. He appeared to have a mildly brighter affect but I suspect that he has a dysphoric affect most of the time as he reported himself to be flat affected most of the time. Patient states "I am only suicidal when I am drinking", currently denying suicidal ideation. Explained to patient that I feel that he is improved but worry about him being discharged before the weekend. Patient states that he has access to more AA meeting on the weekends and that he will get in contact with his sponsor. He states that he has good supports and will utilize them. Patient is concerned with the Zoloft and Hydroxyzine. I reviewed with the patient these medications again (indications, dose, time, route, frequency) and reinforced with him that these are low dosages. I also suggested that he should not be taking these medications with alcohol. He is concerned that he will not have the same therapists at [facility] where he is seen 5 xs per week. MANAGEMENT PLAN: Patient to be discharged to home tomorrow. Orders are placed into the system. Medications were electronically sent to [facility] per patient's request. TIME SPENT: 25 minutes. Vital Signs/I&Os Vital Signs Date Time Temp Pulse Resp B/P (MAP) Pulse Ox O2 Delivery O2 Flow Rate FiO2 04/16/20 07:33 99.7 73 16 116/78 (91) Room Air 04/13/20 14:40 100 Medications Scheduled Hydroxyzine HCl (Hydroxyzine HCl) 50 Mg Tablet, 50 MG PO BID for Anxiety, #7 Sertraline HCl (Sertraline HCl) 25 Mg Tablet, 25 MG PO QHS for Depression, #7 Scheduled PRN Ibuprofen (Ibuprofen) 600 Mg Tablet, 600 MG PO TID PRN for PAIN, (Reported) Allergies Coded Allergies: No Known Allergies (Unverified , 04/10/20) VITO OSWALD NP Apr 16, 2020 08:21
== END 2020-04-16 11:00 | disposition home or self-care (01) | DRG 751 ==
LOC: M ED 22:05 → M ED INP 04-13 12:43 → M PSY 04-13 13:50
PROVIDERS: ADMIT Psychiatry & Neurology Psychiatry; ATTEND Psychiatry & Neurology Psychiatry
DX: F32.1 Major depressive disorder, single episode, moderate (principal); F10.188 Alcohol abuse with other alcohol-induced disorder; F10.129 Alcohol abuse with intoxication, unspecified; F17.200 Nicotine dependence, unspecified, uncomplicated; F12.10 Cannabis abuse, uncomplicated; Z81.8 Family history of other mental and behavioral disorders; Z81.1 Family history of alcohol abuse and dependence

== ENCOUNTER → 2020-05-13 | Outpatient (CLI) | payer OTHER ==
--- NOTE | 2020-05-15 07:00 | ECWPNPC ---
PATIENT NAME: MARTIR DUNCAN : 1985 GENDER: MALE VISIT DATE: 05/13/2020 DISCHARGE DATE: 05/13/20 1401 VISIT LOCKED DATE TIME: PHYSICIAN: PRAVEEN HERRERA RESOURCE: PRAVEEN HERRERA REASON FOR APPOINTMENT 1. LOW BACK HISTORY OF PRESENT ILLNESS GENERAL: -. FALL RISK SCREENING: SCREENING :NO FALLS REPORTED IN THE LAST YEAR PAIN SCREENING: PATIENT HAS A COMPLAINT OF ACUTE OR CHRONIC PAIN :YES LOCATION OF PAIN:LOW BACK INTENSITY OF PAIN (SCALE OF 1 TO 10):3 WHAT DOES YOUR PAIN FEEL LIKE:SHARP DURATION:CONTINOUS, CONSTANT PAIN IS INCREASED BY:ACTIVITIES PAIN IS DECREASED BY:USE OF PAIN MEDICATIONS TREATMENT/MEDICATIONS USED TO MANAGE PAIN:OTC PAIN RELIEVERS LEVEL OF RELIEF FROM PAIN TREATMENTS IN THE PAST:75% PAIN HAS INTERFERED WITH THE FOLLOWING:BATHING/DRESSING, WALKING ABILITY, HOUSEWORK, SLEEP, TRANSPORTATION, TOILETING NURSING NOTE: -. PAIN CENTER INTAKE QUESTIONS: DO YOU HAVE A HISTORY OF MRSA? :NO DO YOU TAKE A BLOOD THINNERS? :NO DO YOU HAVE ANY BLEEDING DISORDERS? :NO ANY NEW NUMBNESS OR WEAKNESS IN YOUR LEGS OR ARMS? :NO ANY PACEMAKER,DEFIBRILLATOR, OR DORSAL COLUMN STIMULATOR? :NO DO YOU HAVE ANY RASHES OR OPEN SORES? :NO ARE YOU ALLERGIC TO IV DYE? :NO ARE YOU DIABETIC? :NO ANY NEW PROBLEMS WITH YOUR MEDICATIONS? :NO HAVE YOU RECEIVED A VACCINE IN THE PAST 30 DAYS? :NO DO YOU PLAN TO RECEIVE A VACCINE IN THE NEXT 21 DAYS? :NO DO YOU NEED ANY PRESCRIPTION? :NO DO YOU TAKE ANY IMMUNOSUPPRESSIVE MEDICATIONS? :NO IS THERE A CHANCE YOU COULD BE ? :NO ARE YOU BREAST FEEDING? :NO HISTORY OF PRESENT ILLNESS: HERE FOR F/U OF CHRONIC LBP WITH RADIATION INTO LEFT POSTERIOR THIGH.RATING PAIN VAS 3/10.CURRENTLY USING IBUPROFEN 600-800MG Q8H PRN FOR PAIN WITH RELIEF. PAIN IS WORSE IN THE MORNING. PAIN THE PATIENT DESCRIBES THE PAIN... THE PATIENT DESCRIBES THE PAIN... THE PATIENT DESCRIBES THE PAIN... CURRENT MEDICATIONS TAKING IBUPROFEN 600 MG TABLET 1 TABLET WITH FOOD OR MILK NEEDED ORALLY Q8H PRN PAIN NOT-TAKING CYMBALTA 60 MG CAPSULE DELAYED RELEASE PARTICLES CAPSULE ORALLY ONCE A DAY NOT-TAKING ABILIFY 5 MG TABLET 1 TABLET ORALLY ONCE A DAY NOT-TAKING DOXYCYCLINE MONOHYDRATE 100 MG CAPSULE 1 CAPSULE ORALLY BID WITH FOOD AND WATER NOT-TAKING CLINDAMYCIN PHOSPHATE 1 % GEL 1 APPLICATION TO AFFECTED AREA EXTERNALLY ONCE A DAY AFTER WASHING TO FACE, NECK, JAWLINE (USE DIFFERIN TO SAME AREAS AT NIGHT) NOT-TAKING IBUPROFEN 600 MG TABLET 1 TABLET WITH FOOD OR MILK NEEDED ORALLY THREE TIMES A DAY, NOTES: DUPLICATE NOT-TAKING DOXYCYCLINE MONOHYDRATE 100 MG CAPSULE 1 CAPSULE ORALLY BID WITH FOOD AND WATER NOT-TAKING IBUPROFEN 600 MG TABLET 1 TABLET WITH FOOD OR MILK NEEDED ORALLY THREE TIMES A DAY NOT-TAKING ACAMPROSATE CALCIUM 333 MG TABLET DELAYED RELEASE 2 TABLETS ORALLY THREE TIMES A DAY NOT-TAKING HYDROXYZINE HCL 25 MG TABLET 1 TABLET NEEDED ORALLY BEFORE BEDTIME NOT-TAKING CYMBALTA 20 MG CAPSULE DELAYED RELEASE PARTICLES 2 CAPSULE ORALLY ONCE A DAY NOT-TAKING PROZAC 40 MG CAPSULE 1 CAPSULE ORALLY ONCE A DAY NOT-TAKING GABAPENTIN 300 MG CAPSULE 1 CAPSULE ORALLY TWO TIMES A DAY MEDICATION LIST REVIEWED AND RECONCILED WITH THE PATIENT PAST MEDICAL HISTORY ASTHMA ANXIETY DISORDER/ DEPRESSION ALCOHOLISM BACK PAIN CYSTS - BOILS ON NECK, JAW LINE AND BACK ALLERGIES N.K.D.A. SURGICAL HISTORY NO SURGICAL HISTORY DOCUMENTED. FAMILY HISTORY FATHER: , DIAGNOSED WITH UNSPECIFIED HEART DISEASE MOTHER: ALIVE 1 BROTHER(S) , 1 SISTER(S) . DENIES FAMILY HX OF MELANOMA AND PANCREATIC CANCER. SOCIAL HISTORY GENERAL: TOBACCO USE ARE YOU A:CURRENT SMOKER ARE YOU INTERESTED IN QUITTING?NOT READY TO QUIT COUNSELED THE PATIENT ON SMOKING EFFECTS, EDUCATION [id number]/12/2020 HOW MANY CIGARETTES A DAY DO YOU SMOKE?11-20 PATIENT COUNSELED ON THE DANGERS OF TOBACCO USE AND URGED TO QUIT:01/20/2020 LATEX QUESTIONNAIRE LATEX ALLERGY : HAVE YOU EVER DEVELOPED ANY TYPE OF REACTION AFTER HANDLING LATEX PRODUCTS SUCH RUBBER GLOVES, CONDOMS, DIAPHRAGMS, BALLOONS, SOCKS, OR UNDERWEAR?NO LATEX ALLERGY : HAVE YOU EVER DEVELOPED ANY TYPE OF REACTION DURING OR AFTER DENTAL APPOINTMENT, VAGINAL/RECTAL EXAMINATION, SURGICAL PROCEDURE, OR ANY OTHER EXPOSURE?NO LATEX RISK : HAVE YOU EVER HAD ANY DIFFICULTY BREATHING OR HIVES AFTER EATING OR HANDLING ANY FRUITS, OR VEGETABLES; SUCH KIWI, BANANAS, STONE FRUITS, OR CHESTNUTSNO LATEX RISK : DO YOU HAVE A PREVIOUS PERSONAL HISTORY OF MORE THAN NINE SURGERIES, SPINA BIFIDA, OR REPEATED CATHERIZATIONS? NO LATEX RISK : ARE YOU FREQUENTLY EXPOSED TO LATEX PRODUCTS IN YOUR OCCUPATION?NO DATE ASKED : 01/20/2020 ALCOHOL SCREENING DID YOU HAVE A DRINK CONTAINING ALCOHOL IN THE PAST YEAR?YES HOW OFTEN DID YOU HAVE A DRINK CONTAINING ALCOHOL IN THE PAST YEAR?FOUR OR MORE TIMES A WEEK (4 POINTS) HOW MANY DRINKS DID YOU HAVE ON A TYPICAL DAY WHEN YOU WERE DRINKING IN THE PAST YEAR?10 OR MORE (4 POINTS) HOW OFTEN DID YOU HAVE SIX OR MORE DRINKS ON ONE OCCASION IN THE PAST YEAR?DAILY OR ALMOST DAILY (4 POINTS) [id number] INTERPRETATIONPOSITIVE RECREATIONAL DRUG USE DRUG USE?YES HOW OFTEN AND HOW MUCH? "SMOKES WEED ABOUT ONCE A MONTH" SIKH [id number] NONE LANGUAGE LANGUAGES SPOKEN:ROMANIAN LEARNING BARRIERS / SPECIAL NEEDS CHANGE FROM LAST VISIT? 09/18/18, 12/31/18,03/28/19 BARRIERS TO LEARNING?NO HEARING IMPAIRED?NO VISION IMPAIRED?NO COGNITIVELY IMPAIRED?NO READINESS TO LEARN?YES LEARNING PREFERENCES?NO LEARNING CAPABILITIES PRESENT?YES EMOTIONAL BARRIERS?NO CHEMICAL WORKER NEEDED?NO DOMESTIC VIOLENCE STATUS:SINGLE DO YOU FEEL SAFE IN YOUR ENVIRONMENT?YES MARITAL STATUS: SINGLE. TODAY'S VISIT NOTES 09/25/2019, PATIENT DESCRIBES PAIN : SHOOTING, FROM 0-10, WHAT LEVEL IS YOUR PAIN TODAY? 2. PAIN CLINIC PFS, CLERGY, PUBLIC HEALTH REFERRALS PFS REFERRAL NEEDED?NO CLERGY REFERRAL NEEDED?NO PUBLIC HEALTH REFERRAL NEEDED?NO WAS THE PROVIDER NOTIFIED OF ANY PERTINENT INFO?YES HAS THE PATIENT BEEN EDUCATED REGARDING HIS/HER PLAN OF CARE?YES HAS THE PATIENT BEEN EDUCATED REGARDING PAIN, THE RISK FOR PAIN, THE IMPORTANCE OF EFFECTIVE PAIN MANAGEMENT, AND THE PAIN ASSESSMENT PROCESS?YES ADVANCE DIRECTIVE ADVANCE DIRECTIVE DISCUSSED WITH PATIENT:YES PT DOES NOT WANT INFO AT THIS TIME, DECLINES ASSISTANCE WITH PAPERWORK. HOSPITALIZATION/MAJOR DIAGNOSTIC PROCEDURE DETOX [facility] 05/2017 [facility] 04/2020 REVIEW OF SYSTEMS CONSTITUTIONAL: ANY RECENT FEVER NO . CHILLS NO . WEIGHT CHANGE OF UNKNOWN REASONS NO . GASTROENTEROLOGY: NEW UNEXPLAINABLE CHANGES IN BOWEL CONTROL NO . CONSTIPATION NO . GENITOURINARY: ANY NEW CHANGE IN BLADDER CONTROL? NO . NEUROLOGY: NEW ONSET DIZZINESS OR NEUROLOGICAL CHANGES NOT MENTIONED NO . NEW NUMBNESS OR PAIN PATTERNS NOT MENTIONED AND PERTINENT TO TODAY'S VISIT NO . CARDIOLOGY: NEW CHEST PRESSURE NO . NEW CHEST PAIN NO . RESPIRATORY: UNEXPLAINABLE COUGH NO . NEW SHORTNESS OF BREATH NO . VITAL SIGNS WT 163.4 LBS, HT 70", BMI 23.44 INDEX, BP 127/72 MM HG, HR 87 /MIN, RR 18 /MIN, TEMP 97.4 F, OXYGEN SAT % 98%, SAFE IN ENV? (Y/N) Y, NA INITIALS [place] 13:39, REVIEWED BY: KEYUR. EXAMINATION GENERAL EXAMINATION: GENERALAWAKE,ALERT ,PLEASANT . PSYCHAFFECT NORMAL . LUNGS:LUNG ADDISON ARE CLEAR TO AUSCULTATION BILATERALLY. GOOD MOVEMENT OF AIR . HEART:S1, S2 IN A REGULAR RATE AND RHYTHM. NO SIGNIFICANT MURMURS, RUBS OR GALLOPS NOTED . ASSESSMENTS INTERVERTEBRAL DISC DISORDERS WITH RADICULOPATHY, LUMBOSACRAL REGION - M51.17 (PRIMARY) TREATMENT INTERVERTEBRAL DISC DISORDERS WITH RADICULOPATHY, LUMBOSACRAL REGION CONTINUE IBUPROFEN TABLET, 600 MG, 1 TABLET WITH FOOD OR MILK NEEDED, ORALLY, Q8H PRN PAIN PROCEDURE CODES FA211 ESTABILISHED PATIENT [facility] CHARGE DISPOSITION & COMMUNICATION FOLLOW UP 3 MONTHS (REASON: CHRONIC LOW BACK PAIN) ELECTRONICALLY SIGNED BY JAMA CONLEY ON 05/14/2020 AT 02:02 PM EST DISCLAIMER : THIS IS A VISIT SUMMARY EXTRACTED FROM THE [employer] CHART. IT IS NOT A COPY OF THE [employer] PROGRESS NOTE. ABDIAS
== END ==
LOC: M PAIN 13:30
PROVIDERS: ATTEND Nurse Practitioner Family
DX: M51.17 Intervertebral disc disorders with radiculopathy, lumbosacral region (principal); G89.29 Other chronic pain; J45.909 Unspecified asthma, uncomplicated; F17.210 Nicotine dependence, cigarettes, uncomplicated; Z86.59 Personal history of other mental and behavioral disorders; Z79.899 Other long term (current) drug therapy

== ENCOUNTER → 2020-08-13 | Outpatient (CLI) | payer OTHER ==
--- NOTE | 2020-08-18 10:18 | ECWPNPC ---
PATIENT NAME: MARTIR DUNCAN : 1985 GENDER: MALE VISIT DATE: 08/13/2020 DISCHARGE DATE: 08/13/20 1426 VISIT LOCKED DATE TIME: PHYSICIAN: PRAVEEN HERRERA RESOURCE: PRAVEEN HERRERA REASON FOR APPOINTMENT 1. CHRONIC LOW BACK PAIN HISTORY OF PRESENT ILLNESS DEPRESSION SCREENING: PHQ-9 LITTLE INTEREST OR PLEASURE IN DOING THINGSNEARLY EVERY DAY FEELING DOWN, DEPRESSED, OR HOPELESSNEARLY EVERY DAY TROUBLE FALLING OR STAYING ASLEEP, OR SLEEPING TOO MUCHSEVERAL DAYS FEELING TIRED OR HAVING LITTLE ENERGYNEARLY EVERY DAY POOR APPETITE OR OVEREATING NEARLY EVERY DAY FEELING BAD ABOUT YOURSELF-OR THAT YOU ARE A FAILURE OR HAVE LET YOURSELF OR YOUR FAMILY DOWN NEARLY EVERY DAY TROUBLE CONCENTRATING ON THINGS, SUCH READING THE NEWSPAPER OR WATCHING TELEVISION NEARLY EVERY DAY MOVING OR SPEAKING SO SLOWLY THAT OTHER PEOPLE COULD HAVE NOTICED. OR THE OPPOSITE- BEING SO FIDGETY OR RESTLESS THAT YOU HAVE BEEN MOVING AROUND A LOT MORE THAN USUALNEARLY EVERY DAY THOUGHTS THAT YOU WOULD BE BETTER OFF , OR OF HURTING YOURSELF IN SOME WAY?SEVERAL DAYS(CONSIDER SUICIDE ASSESSMENT RISK) TOTAL SCORE:23 INTERPRETATIONSEVERE DEPRESSION PHQ-2 (2015 EDITION) LITTLE INTEREST OR PLEASURE IN DOING THINGS?NEARLY EVERY DAY FEELING DOWN, DEPRESSED, OR HOPELESS?NEARLY EVERY DAY TOTAL SCORE6 GENERAL: HERE FOR FOLLOW-UP OF CHRONIC LOW BACK PAIN AND LEFT LEG PAIN. HISTORY OF HERNIATED DISC. PAIN HAS GOTTEN BAD OVER THE PAST 2 WEEKS. DENIES PRECIPITATING EVENT. PAIN IS LOCATED IN THE LEFT LOW BACK AND RADIATES INTO THE LEFT LATERAL THIGH. HAS RESPONDED WELL TO L5-S1 LESI IN THE PAST LAST BEING DONE A FEW YEARS AGO. DISCUSSED TREATMENT PLAN. - -. FALL RISK SCREENING: SCREENING :NO FALLS REPORTED IN THE LAST YEAR PAIN SCREENING: PATIENT HAS A COMPLAINT OF ACUTE OR CHRONIC PAIN :YES LOCATION OF PAIN:LOW BACK INTENSITY OF PAIN (SCALE OF 1 TO 10):3 WHAT DOES YOUR PAIN FEEL LIKE:SHOOTING DURATION:CONTINOUS, CONSTANT, ALL DAY PAIN IS INCREASED BY:ACTIVITIES PAIN IS DECREASED BY:USE OF PAIN MEDICATIONS NURSING NOTE: -. PAIN CENTER INTAKE QUESTIONS: DO YOU HAVE A HISTORY OF MRSA? :NO DO YOU TAKE A BLOOD THINNERS? :NO DO YOU HAVE ANY BLEEDING DISORDERS? :NO ANY NEW NUMBNESS OR WEAKNESS IN YOUR LEGS OR ARMS? :NO ANY PACEMAKER,DEFIBRILLATOR, OR DORSAL COLUMN STIMULATOR? :NO DO YOU HAVE ANY RASHES OR OPEN SORES? :NO ARE YOU ALLERGIC TO IV DYE? :NO ARE YOU DIABETIC? :NO ANY NEW PROBLEMS WITH YOUR MEDICATIONS? :NO HAVE YOU RECEIVED A VACCINE IN THE PAST 30 DAYS? :NO DO YOU PLAN TO RECEIVE A VACCINE IN THE NEXT 21 DAYS? :NO DO YOU NEED ANY PRESCRIPTION? :NO DO YOU TAKE ANY IMMUNOSUPPRESSIVE MEDICATIONS? :NO IS THERE A CHANCE YOU COULD BE ? :NO ARE YOU BREAST FEEDING? :NO CURRENT MEDICATIONS NOT-TAKING CYMBALTA 60 MG CAPSULE DELAYED RELEASE PARTICLES CAPSULE ORALLY ONCE A DAY NOT-TAKING ABILIFY 5 MG TABLET 1 TABLET ORALLY ONCE A DAY NOT-TAKING DOXYCYCLINE MONOHYDRATE 100 MG CAPSULE 1 CAPSULE ORALLY BID WITH FOOD AND WATER NOT-TAKING CLINDAMYCIN PHOSPHATE 1 % GEL 1 APPLICATION TO AFFECTED AREA EXTERNALLY ONCE A DAY AFTER WASHING TO FACE, NECK, JAWLINE (USE DIFFERIN TO SAME AREAS AT NIGHT) NOT-TAKING IBUPROFEN 600 MG TABLET 1 TABLET WITH FOOD OR MILK NEEDED ORALLY THREE TIMES A DAY, NOTES: DUPLICATE NOT-TAKING DOXYCYCLINE MONOHYDRATE 100 MG CAPSULE 1 CAPSULE ORALLY BID WITH FOOD AND WATER NOT-TAKING IBUPROFEN 600 MG TABLET 1 TABLET WITH FOOD OR MILK NEEDED ORALLY THREE TIMES A DAY NOT-TAKING ACAMPROSATE CALCIUM 333 MG TABLET DELAYED RELEASE 2 TABLETS ORALLY THREE TIMES A DAY NOT-TAKING HYDROXYZINE HCL 25 MG TABLET 1 TABLET NEEDED ORALLY BEFORE BEDTIME NOT-TAKING CYMBALTA 20 MG CAPSULE DELAYED RELEASE PARTICLES 2 CAPSULE ORALLY ONCE A DAY NOT-TAKING PROZAC 40 MG CAPSULE 1 CAPSULE ORALLY ONCE A DAY NOT-TAKING GABAPENTIN 300 MG CAPSULE 1 CAPSULE ORALLY TWO TIMES A DAY NOT-TAKING IBUPROFEN 600 MG TABLET 1 TABLET WITH FOOD OR MILK NEEDED ORALLY Q8H PRN PAIN MEDICATION LIST REVIEWED AND RECONCILED WITH THE PATIENT PAST MEDICAL HISTORY ASTHMA ANXIETY DISORDER/ DEPRESSION ALCOHOLISM BACK PAIN CYSTS - BOILS ON NECK, JAW LINE AND BACK ALLERGIES N.K.D.A. SOCIAL HISTORY GENERAL: TOBACCO USE ARE YOU A:CURRENT SMOKER ARE YOU INTERESTED IN QUITTING?NOT READY TO QUIT COUNSELED THE PATIENT ON SMOKING EFFECTS, EDUCATION [id number]/12/2021 HOW MANY CIGARETTES A DAY DO YOU SMOKE?11-20 PATIENT COUNSELED ON THE DANGERS OF TOBACCO USE AND URGED TO QUIT:08/13/2020 LATEX QUESTIONNAIRE LATEX ALLERGY : HAVE YOU EVER DEVELOPED ANY TYPE OF REACTION AFTER HANDLING LATEX PRODUCTS SUCH RUBBER GLOVES, CONDOMS, DIAPHRAGMS, BALLOONS, SOCKS, OR UNDERWEAR?NO LATEX ALLERGY : HAVE YOU EVER DEVELOPED ANY TYPE OF REACTION DURING OR AFTER DENTAL APPOINTMENT, VAGINAL/RECTAL EXAMINATION, SURGICAL PROCEDURE, OR ANY OTHER EXPOSURE?NO LATEX RISK : HAVE YOU EVER HAD ANY DIFFICULTY BREATHING OR HIVES AFTER EATING OR HANDLING ANY FRUITS, OR VEGETABLES; SUCH KIWI, BANANAS, STONE FRUITS, OR CHESTNUTSNO LATEX RISK : DO YOU HAVE A PREVIOUS PERSONAL HISTORY OF MORE THAN NINE SURGERIES, SPINA BIFIDA, OR REPEATED CATHERIZATIONS? NO LATEX RISK : ARE YOU FREQUENTLY EXPOSED TO LATEX PRODUCTS IN YOUR OCCUPATION?NO DATE ASKED : 08/13/2020 ALCOHOL USE: YES EVERYDAY. ALCOHOL SCREENING DID YOU HAVE A DRINK CONTAINING ALCOHOL IN THE PAST YEAR?YES HOW OFTEN DID YOU HAVE SIX OR MORE DRINKS ON ONE OCCASION IN THE PAST YEAR?DAILY OR ALMOST DAILY (4 POINTS) HOW MANY DRINKS DID YOU HAVE ON A TYPICAL DAY WHEN YOU WERE DRINKING IN THE PAST YEAR?10 OR MORE (4 POINTS) HOW OFTEN DID YOU HAVE A DRINK CONTAINING ALCOHOL IN THE PAST YEAR?FOUR OR MORE TIMES A WEEK (4 POINTS) [id number] INTERPRETATIONPOSITIVE RECREATIONAL DRUG USE DRUG USE?YES HOW OFTEN AND HOW MUCH? "SMOKES WEED ABOUT ONCE A MONTH" GNOSTICIST [id number] NONE LANGUAGE LANGUAGES SPOKEN:IRANIAN LEARNING BARRIERS / SPECIAL NEEDS CHANGE FROM LAST VISIT?NO BARRIERS TO LEARNING?NO HEARING IMPAIRED?NO VISION IMPAIRED?NO COGNITIVELY IMPAIRED?NO READINESS TO LEARN?YES LEARNING PREFERENCES?NO LEARNING CAPABILITIES PRESENT?YES EMOTIONAL BARRIERS?NO SPECIAL DEVICES?NO CERTIFICATION AND SELECTION SPECIALIST NEEDED?NO DOMESTIC VIOLENCE STATUS:SINGLE DO YOU FEEL SAFE IN YOUR ENVIRONMENT?YES MARITAL STATUS: SINGLE. TODAY'S VISIT NOTES 09/25/2019, PATIENT DESCRIBES PAIN : SHOOTING, FROM 0-10, WHAT LEVEL IS YOUR PAIN TODAY? 2. - PFS REFERRAL NEEDED?NO CLERGY REFERRAL NEEDED?NO PUBLIC HEALTH REFERRAL NEEDED?NO WAS THE PROVIDER NOTIFIED OF ANY PERTINENT INFO?YES HAS THE PATIENT BEEN EDUCATED REGARDING HIS/HER PLAN OF CARE?YES HAS THE PATIENT BEEN EDUCATED REGARDING PAIN, THE RISK FOR PAIN, THE IMPORTANCE OF EFFECTIVE PAIN MANAGEMENT, AND THE PAIN ASSESSMENT PROCESS?YES ADVANCE DIRECTIVE ADVANCE DIRECTIVE DISCUSSED WITH PATIENT:YES PT DOES NOT WANT INFO AT THIS TIME, DECLINES ASSISTANCE WITH PAPERWORK. HOSPITALIZATION/MAJOR DIAGNOSTIC PROCEDURE [facility]2017 [facility] 04/2020 REVIEW OF SYSTEMS CONSTITUTIONAL: ANY RECENT FEVER NO . CHILLS NO . WEIGHT CHANGE OF UNKNOWN REASONS NO . GASTROENTEROLOGY: NEW UNEXPLAINABLE CHANGES IN BOWEL CONTROL NO . CONSTIPATION NO . GENITOURINARY: ANY NEW CHANGE IN BLADDER CONTROL? NO . NEUROLOGY: NEW ONSET DIZZINESS OR NEUROLOGICAL CHANGES NOT MENTIONED NO . NEW NUMBNESS OR PAIN PATTERNS NOT MENTIONED AND PERTINENT TO TODAY'S VISIT NO . CARDIOLOGY: NEW CHEST PRESSURE NO . NEW CHEST PAIN NO . RESPIRATORY: UNEXPLAINABLE COUGH NO . NEW SHORTNESS OF BREATH NO . VITAL SIGNS WT 167 LBS, HT 70", BMI 23.96 INDEX, BP 147/89 MM HG, REPEAT BP 142/84 MM HG, HR 68 /MIN, RR 18 /MIN, TEMP 96 F, OXYGEN SAT % 100%, SAFE IN ENV? (Y/N) YEST.BRANDON JOHNSON. EXAMINATION GENERAL EXAMINATION: GENERALAWAKE,ALERT ,PLEASANT . PSYCHAFFECT NORMAL . LUNGS:LUNG ADDISON ARE CLEAR TO AUSCULTATION BILATERALLY. GOOD MOVEMENT OF AIR . HEART:S1, S2 IN A REGULAR RATE AND RHYTHM. NO SIGNIFICANT MURMURS, RUBS OR GALLOPS NOTED . ASSESSMENTS INTERVERTEBRAL DISC DISORDERS WITH RADICULOPATHY, LUMBOSACRAL REGION - M51.17 (PRIMARY) TREATMENT INTERVERTEBRAL DISC DISORDERS WITH RADICULOPATHY, LUMBOSACRAL REGION NOTES: CONTINUE WITH CONSERVATIVE CARE FOR LOW BACK PAIN. PROCEDURE CODES FA211 ESTABILISHED PATIENT [facility] CHARGE DISPOSITION & COMMUNICATION FOLLOW UP 3 MONTHS (REASON: MED MGMNT) ELECTRONICALLY SIGNED BY JAMA CONLEY ON 08/17/2020 AT 07:53 PM EST DISCLAIMER : THIS IS A VISIT SUMMARY EXTRACTED FROM THE [employer] CHART. IT IS NOT A COPY OF THE [employer] PROGRESS NOTE. ABDIAS
== END ==
LOC: M PAIN 14:00
PROVIDERS: ATTEND Nurse Practitioner Family
DX: M51.17 Intervertebral disc disorders with radiculopathy, lumbosacral region (principal); G89.29 Other chronic pain; J45.909 Unspecified asthma, uncomplicated; F17.210 Nicotine dependence, cigarettes, uncomplicated; Z86.59 Personal history of other mental and behavioral disorders; Z79.899 Other long term (current) drug therapy

== ENCOUNTER → 2020-11-17 | Outpatient (CLI) | payer OTHER ==
--- NOTE | 2020-11-17 23:46 | ECWPNPC ---
PATIENT NAME: MARTIR DUNCAN : 1985 GENDER: MALE VISIT DATE: 11/17/2020 DISCHARGE DATE: 11/17/20 1126 VISIT LOCKED DATE TIME: PHYSICIAN: PRAVEEN HERRERA RESOURCE: PRAVEEN HERRERA REASON FOR APPOINTMENT 1. MED MANAGEMENT HISTORY OF PRESENT ILLNESS GENERAL: HERE FOR F/U OF CHRONIC LOW BACK PAIN AND LEFT LEG PAIN. HISTORY OF HERNIATED DISC. DENIES PRECIPITATING EVENT.PAIN IS LOCATED IN THE LEFT LOW BACK AND RADIATES INTO THE LEFT LATERAL THIGH. HAS RESPONDED WELL TO L5-S1 LESI IN THE PAST. DISCUSSED TREATMENT PLAN. - - -. FALL RISK SCREENING: SCREENING : NO FALLS REPORTED IN THE LAST YEAR, LAST WEEK HAD A FALL, PATIENT STATED THAT FELT FOGGY, NO INJURIES. PAIN SCREENING: PATIENT HAS A COMPLAINT OF ACUTE OR CHRONIC PAIN :YES LOCATION OF PAIN:LOW BACK INTENSITY OF PAIN (SCALE OF 1 TO 10):1 WHAT DOES YOUR PAIN FEEL LIKE:SHARP, STABBING, SHOOTING DURATION:INTERMITTENT PAIN IS INCREASED BY:OTHERS COMES AND GOES WHEN IT FEELS LIKE PAIN IS DECREASED BY:OTHERS HEAT/ICE AND RESTING NURSING NOTE: -. PAIN CENTER INTAKE QUESTIONS: DO YOU HAVE A HISTORY OF MRSA? :NO DO YOU TAKE A BLOOD THINNERS? :NO DO YOU HAVE ANY BLEEDING DISORDERS? :NO ANY NEW NUMBNESS OR WEAKNESS IN YOUR LEGS OR ARMS? :NO ANY PACEMAKER,DEFIBRILLATOR, OR DORSAL COLUMN STIMULATOR? :NO DO YOU HAVE ANY RASHES OR OPEN SORES? :NO ARE YOU ALLERGIC TO IV DYE? :NO ARE YOU DIABETIC? :NO ANY NEW PROBLEMS WITH YOUR MEDICATIONS? :NO HAVE YOU RECEIVED A VACCINE IN THE PAST 30 DAYS? :NO DO YOU PLAN TO RECEIVE A VACCINE IN THE NEXT 21 DAYS? :NO DO YOU NEED ANY PRESCRIPTION? :NO DO YOU TAKE ANY IMMUNOSUPPRESSIVE MEDICATIONS? :NO IS THERE A CHANCE YOU COULD BE ? :NO ARE YOU BREAST FEEDING? :NO CURRENT MEDICATIONS TAKING IBUPROFEN 600 MG TABLET 1 TABLET WITH FOOD OR MILK NEEDED ORALLY THREE TIMES A DAY, NOTES: DUPLICATE NOT-TAKING CYMBALTA 60 MG CAPSULE DELAYED RELEASE PARTICLES CAPSULE ORALLY ONCE A DAY NOT-TAKING ABILIFY 5 MG TABLET 1 TABLET ORALLY ONCE A DAY NOT-TAKING DOXYCYCLINE MONOHYDRATE 100 MG CAPSULE 1 CAPSULE ORALLY BID WITH FOOD AND WATER NOT-TAKING CLINDAMYCIN PHOSPHATE 1 % GEL 1 APPLICATION TO AFFECTED AREA EXTERNALLY ONCE A DAY AFTER WASHING TO FACE, NECK, JAWLINE (USE DIFFERIN TO SAME AREAS AT NIGHT) NOT-TAKING DOXYCYCLINE MONOHYDRATE 100 MG CAPSULE 1 CAPSULE ORALLY BID WITH FOOD AND WATER NOT-TAKING IBUPROFEN 600 MG TABLET 1 TABLET WITH FOOD OR MILK NEEDED ORALLY THREE TIMES A DAY NOT-TAKING ACAMPROSATE CALCIUM 333 MG TABLET DELAYED RELEASE 2 TABLETS ORALLY THREE TIMES A DAY NOT-TAKING HYDROXYZINE HCL 25 MG TABLET 1 TABLET NEEDED ORALLY BEFORE BEDTIME NOT-TAKING CYMBALTA 20 MG CAPSULE DELAYED RELEASE PARTICLES 2 CAPSULE ORALLY ONCE A DAY NOT-TAKING PROZAC 40 MG CAPSULE 1 CAPSULE ORALLY ONCE A DAY NOT-TAKING GABAPENTIN 300 MG CAPSULE 1 CAPSULE ORALLY TWO TIMES A DAY NOT-TAKING IBUPROFEN 600 MG TABLET 1 TABLET WITH FOOD OR MILK NEEDED ORALLY Q8H PRN PAIN MEDICATION LIST REVIEWED AND RECONCILED WITH THE PATIENT PAST MEDICAL HISTORY ASTHMA ANXIETY DISORDER/ DEPRESSION ALCOHOLISM BACK PAIN CYSTS - BOILS ON NECK, JAW LINE AND BACK FALL 10/2020 NO INJUIRES ALLERGIES N.K.D.A. SOCIAL HISTORY GENERAL: TOBACCO USE ARE YOU A:CURRENT SMOKER ARE YOU INTERESTED IN QUITTING?NOT READY TO QUIT COUNSELED THE PATIENT ON SMOKING EFFECTS, EDUCATION [id number]/19/2021 HOW MANY CIGARETTES A DAY DO YOU SMOKE?11-20 PATIENT COUNSELED ON THE DANGERS OF TOBACCO USE AND URGED TO QUIT:11/17/2020 LATEX QUESTIONNAIRE LATEX ALLERGY : HAVE YOU EVER DEVELOPED ANY TYPE OF REACTION AFTER HANDLING LATEX PRODUCTS SUCH RUBBER GLOVES, CONDOMS, DIAPHRAGMS, BALLOONS, SOCKS, OR UNDERWEAR?NO LATEX ALLERGY : HAVE YOU EVER DEVELOPED ANY TYPE OF REACTION DURING OR AFTER DENTAL APPOINTMENT, VAGINAL/RECTAL EXAMINATION, SURGICAL PROCEDURE, OR ANY OTHER EXPOSURE?NO LATEX RISK : HAVE YOU EVER HAD ANY DIFFICULTY BREATHING OR HIVES AFTER EATING OR HANDLING ANY FRUITS, OR VEGETABLES; SUCH KIWI, BANANAS, STONE FRUITS, OR CHESTNUTSNO LATEX RISK : DO YOU HAVE A PREVIOUS PERSONAL HISTORY OF MORE THAN NINE SURGERIES, SPINA BIFIDA, OR REPEATED CATHERIZATIONS? NO LATEX RISK : ARE YOU FREQUENTLY EXPOSED TO LATEX PRODUCTS IN YOUR OCCUPATION?NO DATE ASKED : 11/17/2020 ALCOHOL USE: YES EVERYDAY. ALCOHOL SCREENING DID YOU HAVE A DRINK CONTAINING ALCOHOL IN THE PAST YEAR?YES HOW OFTEN DID YOU HAVE SIX OR MORE DRINKS ON ONE OCCASION IN THE PAST YEAR?DAILY OR ALMOST DAILY (4 POINTS) HOW MANY DRINKS DID YOU HAVE ON A TYPICAL DAY WHEN YOU WERE DRINKING IN THE PAST YEAR?10 OR MORE (4 POINTS) HOW OFTEN DID YOU HAVE A DRINK CONTAINING ALCOHOL IN THE PAST YEAR?FOUR OR MORE TIMES A WEEK (4 POINTS) [id number] INTERPRETATIONPOSITIVE RECREATIONAL DRUG USE DRUG USE?YES HOW OFTEN AND HOW MUCH? "SMOKES WEED ABOUT ONCE A MONTH" DENOMINATIONAL [id number] NONE LANGUAGE LANGUAGES SPOKEN:TAMAZIGHT LEARNING BARRIERS / SPECIAL NEEDS CHANGE FROM LAST VISIT?NO BARRIERS TO LEARNING?NO HEARING IMPAIRED?NO VISION IMPAIRED?NO COGNITIVELY IMPAIRED?NO READINESS TO LEARN?YES LEARNING PREFERENCES?NO LEARNING CAPABILITIES PRESENT?YES EMOTIONAL BARRIERS?NO SPECIAL DEVICES?NO BECK TENDER NEEDED?NO DOMESTIC VIOLENCE STATUS:SINGLE DO YOU FEEL SAFE IN YOUR ENVIRONMENT?YES MARITAL STATUS: SINGLE. TODAY'S VISIT NOTES 09/25/2019, PATIENT DESCRIBES PAIN : SHOOTING, FROM 0-10, WHAT LEVEL IS YOUR PAIN TODAY? 2. - PFS REFERRAL NEEDED?NO CLERGY REFERRAL NEEDED?NO PUBLIC HEALTH REFERRAL NEEDED?NO WAS THE PROVIDER NOTIFIED OF ANY PERTINENT INFO?YES HAS THE PATIENT BEEN EDUCATED REGARDING HIS/HER PLAN OF CARE?YES HAS THE PATIENT BEEN EDUCATED REGARDING PAIN, THE RISK FOR PAIN, THE IMPORTANCE OF EFFECTIVE PAIN MANAGEMENT, AND THE PAIN ASSESSMENT PROCESS?YES ADVANCE DIRECTIVE ADVANCE DIRECTIVE DISCUSSED WITH PATIENT:YES PT DOES NOT WANT INFO AT THIS TIME, DECLINES ASSISTANCE WITH PAPERWORK. HOSPITALIZATION/MAJOR DIAGNOSTIC PROCEDURE DETOX [facility] 05/2017 [facility] 04/2020 DETOX [facility] 08/2020 [facility] TO SPEAK TO A THERAPIST 08/2020 REVIEW OF SYSTEMS CONSTITUTIONAL: ANY RECENT FEVER NO . CHILLS NO . WEIGHT CHANGE OF UNKNOWN REASONS NO . GASTROENTEROLOGY: NEW UNEXPLAINABLE CHANGES IN BOWEL CONTROL NO . CONSTIPATION NO . GENITOURINARY: ANY NEW CHANGE IN BLADDER CONTROL? NO . NEUROLOGY: NEW ONSET DIZZINESS OR NEUROLOGICAL CHANGES NOT MENTIONED NO . NEW NUMBNESS OR PAIN PATTERNS NOT MENTIONED AND PERTINENT TO TODAY'S VISIT NO . CARDIOLOGY: NEW CHEST PRESSURE NO . PATIENT DENIES NO . RESPIRATORY: UNEXPLAINABLE COUGH NO . NEW SHORTNESS OF BREATH NO . VITAL SIGNS WT 166 LBS, HT 70" IN, BMI 23.82 INDEX, BP 158/90 MM HG,140/80 MM HG, REPEAT BP 140/80 MM HG, RR 14 /MIN, TEMP 95.2 F, OXYGEN SAT % 98, SAFE IN ENV? (Y/N) YEST.BRANDON JOHNSON. EXAMINATION GENERAL EXAMINATION: GENERALAWAKE,ALERT ,PLEASANT . PSYCHAFFECT NORMAL . LUNGS:LUNG ADDISON ARE CLEAR TO AUSCULTATION BILATERALLY. GOOD MOVEMENT OF AIR . HEART:S1, S2 IN A REGULAR RATE AND RHYTHM. NO SIGNIFICANT MURMURS, RUBS OR GALLOPS NOTED . ASSESSMENTS INTERVERTEBRAL DISC DISORDERS WITH RADICULOPATHY, LUMBOSACRAL REGION - M51.17 (PRIMARY) TREATMENT INTERVERTEBRAL DISC DISORDERS WITH RADICULOPATHY, LUMBOSACRAL REGION NOTES: CONTINUE HOME EXCERSISE AND STRETCHING DAILY. PROCEDURE CODES FA211 ESTABILISHED PATIENT [facility] CHARGE DISPOSITION & COMMUNICATION FOLLOW UP 3 MONTHS (REASON: LOW BACK PAIN/DOES WELL W/ LESI) ELECTRONICALLY SIGNED BY JAMA CONLEY ON 11/17/2020 AT 09:21 PM EDT DISCLAIMER : THIS IS A VISIT SUMMARY EXTRACTED FROM THE [employer] CHART. IT IS NOT A COPY OF THE [employer] PROGRESS NOTE. ABDIAS
== END ==
LOC: M PAIN 10:45
PROVIDERS: ATTEND Nurse Practitioner Family
DX: M51.17 Intervertebral disc disorders with radiculopathy, lumbosacral region (principal); G89.29 Other chronic pain; J45.909 Unspecified asthma, uncomplicated; F17.210 Nicotine dependence, cigarettes, uncomplicated; Z86.59 Personal history of other mental and behavioral disorders; Z79.899 Other long term (current) drug therapy

== ENCOUNTER → 2021-06-16 | Outpatient (CLI) | payer OTHER | LOC: M PAIN 14:15 | PROVIDERS: ATTEND Anesthesiology | DX: M54.50 Low back pain, unspecified (principal); J45.909 Unspecified asthma, uncomplicated; F41.9 Anxiety disorder, unspecified; F32.A Depression, unspecified; F10.20 Alcohol dependence, uncomplicated; Z79.899 Other long term (current) drug therapy; Z87.891 Personal history of nicotine dependence ==

== ENCOUNTER → 2021-12-15 | Outpatient (CLI) | payer OTHER | LOC: M PAIN 13:30 | PROVIDERS: ATTEND Anesthesiology | DX: M54.50 Low back pain, unspecified (principal); G89.29 Other chronic pain; J45.909 Unspecified asthma, uncomplicated; Z86.59 Personal history of other mental and behavioral disorders; Z87.891 Personal history of nicotine dependence; Z79.899 Other long term (current) drug therapy ==

== ENCOUNTER 2022-12-21 08:10 | Emergency (ER) | payer OTHER ==
[~2022-12-21] VITALS: Ht 180.3 cm; Wt 89.7 kg
[2022-12-21] MEDS ORDERED: traMADol 50 MG TAB PO ONE (09:55)
[2022-12-21] MEDS ORDERED: ACETAMINOPHEN TAB 650MG DOSE (2X325MG) PO ONE (09:55)
[2022-12-21] MEDS ORDERED: KETO10TAB PO (09:57)
[2022-12-21 10:13] VITALS: BP 155/98; TEMP 98.7; O2SAT 96
== END 2022-12-21 10:45 | disposition home or self-care (01) ==
LOC: M ED 08:10
DX: S22.41XA Multiple fractures of ribs, right side, initial encounter for closed fracture (principal); Y04.0XXA Assault by unarmed brawl or fight, initial encounter; F17.200 Nicotine dependence, unspecified, uncomplicated; F10.10 Alcohol abuse, uncomplicated; Z79.899 Other long term (current) drug therapy

== ENCOUNTER → 2022-12-28 | Outpatient (CLI) | payer OTHER ==
[~2022-12-28] MED LIST changes: +KETO10TAB PO
[2022-12-28 18:29] LABS: HEMOGLOBIN 14.3 g/dl (13.5-17.5); MEAN CORPUSCULAR HEMOGLOBIN 31.9 pg (27.0-33.0); MEAN CORPUSCULAR HGB CONC 33.3 g/dl (32.0-36.5); PLATELET COUNT, AUTOMATED 233 10^3/uL (150-450); RED BLOOD COUNT 4.48 10^6/uL (4.30-6.10); WHITE BLOOD COUNT 9.6 10^3/uL (4.0-10.0)
[2022-12-28 18:59] LABS: ALBUMIN 3.9 G/DL (3.2-5.2); ALKALINE PHOSPHATASE 97 U/L (46-116); ALT/SGPT 19 U/L (7.0-40); AST/SGOT 11 U/L (<34); BILIRUBIN,TOTAL 0.4 MG/DL (0.3-1.2); BLOOD UREA NITROGEN 16 MG/DL (9-23); CALCIUM LEVEL 9.8 MG/DL (8.5-10.1); CARBON DIOXIDE LEVEL 29 MMOL/L (20-31); CHLORIDE LEVEL 109 MMOL/L (98-107); CREATININE FOR GFR 0.92 MG/DL (0.70-1.30); GLOMERULAR FILTRATION RATE > 60.0 (>60); GLUCOSE, FASTING 74 MG/DL (60-100); POTASSIUM SERUM 3.8 MMOL/L (3.5-5.1); SODIUM LEVEL 142 MMOL/L (136-145); TOTAL PROTEIN 6.6 G/DL (5.7-8.2)
[2022-12-28 19:32] LABS: HIV 1&2 SCREEN NEGATIVE (NEGATIVE)
[2022-12-28 19:40] LABS: HEPATITIS C VIRUS ABY INDEX 0.08 INDEX (<0.8)
[2022-12-28 20:21] LABS: GC DNA AMPLIFICATION NEGATIVE (NEGATIVE)
== END ==
LOC: M LAB 17:09
PROVIDERS: ATTEND Family Medicine
DX: Z79.899 Other long term (current) drug therapy (principal)

== ENCOUNTER 2024-03-23 12:28 | Emergency (ER) | payer OTHER ==
[~2024-03-23] VITALS: Ht 180.3 cm; Wt 75.4 kg
[2024-03-23 13:53] VITALS: BP 136/83; TEMP 97.7; O2SAT 97
[2024-03-23 14:08] LABS: HEMATOCRIT 43.9 % (42.0-52.0); MEAN CORPUSCULAR HEMOGLOBIN 30.9 pg (27.0-33.0); MEAN CORPUSCULAR HGB CONC 34.2 g/dl (32.0-36.5); MEAN CORPUSCULAR VOLUME 90.5 fl (80.0-96.0); PLATELET COUNT, AUTOMATED 223 10^3/uL (150-450); RED BLOOD COUNT 4.85 10^6/uL (4.30-6.10); WHITE BLOOD COUNT 8.4 10^3/uL (4.0-10.0)
[2024-03-23 14:41] LABS: AMPHETAMINES LEVEL URINE NEGATIVE (NEGATIVE); BARBITURATES URINE NEGATIVE (NEGATIVE); COCAINE METABOLITE URINE NEGATIVE (NEGATIVE)
[2024-03-23 14:42] LABS: BENZODIAZEPINES URINE NEGATIVE (NEGATIVE); METHADONE URINE NEGATIVE (NEGATIVE); OPIATES URINE NEGATIVE (NEGATIVE); PHENCYCLIDINE URINE NEGATIVE (NEGATIVE)
[2024-03-23 14:44] LABS: CANNABINOIDS URINE POSITIVE (NEGATIVE)
[2024-03-23 14:51] LABS: ETHYL ALCOHOL (ETHANOL) < 0.003 % (0.000-0.010)
[2024-03-23 14:52] LABS: ALBUMIN 4.2 G/DL (3.2-5.2); ALKALINE PHOSPHATASE 92 U/L (46-116); ALT/SGPT 18 U/L (7.0-40); AST/SGOT 9 U/L (<34); BILIRUBIN,DIRECT 0.1 MG/DL (<0.4); BILIRUBIN,TOTAL 0.4 MG/DL (0.3-1.2); BLOOD UREA NITROGEN 12 MG/DL (9-23); CALCIUM LEVEL 8.6 MG/DL (8.5-10.1); CARBON DIOXIDE LEVEL 27 MMOL/L (20-31); CHLORIDE LEVEL 110 MMOL/L (98-107); CREATININE FOR GFR 0.78 MG/DL (0.70-1.30); GLOMERULAR FILTRATION RATE > 60.0 (>60); GLUCOSE, FASTING 93 MG/DL (60-100); POTASSIUM SERUM 4.6 MMOL/L (3.5-5.1); SALICYLATE LEVEL < 3.0 MG/DL (<30); SODIUM LEVEL 139 MMOL/L (136-145); TOTAL PROTEIN 7.2 G/DL (5.7-8.2)
[2024-03-23 14:55] LABS: THYROID STIMULATING HORMONE 0.393 uIU/ML (0.55-4.78)
== END 2024-03-23 15:40 | disposition home or self-care (01) ==
LOC: M ED 12:28
DX: F32.A Depression, unspecified (principal); F41.9 Anxiety disorder, unspecified; F10.10 Alcohol abuse, uncomplicated